=== PATIENT | male | born 1985 | race Caucasian/White ===

== ENCOUNTER 2017-03-31 17:32 | Inpatient (IN) | payer OTHER ==
[2017-03-31 18:03] VITALS: BMI 31.7
--- NOTE | 2017-03-31 19:45 | HP ---
COWS - Scale Resting Pulse: 0= ID 80 or Below Sweatin= Chills/Flushing Restless Observation: 3= Extraneous Movement Pupil Size: 0= Normal to Room Light Bone or Joint Aches: 2= Severe Diffuse Aches Runny Nose/ Eye Tearin= Nasal Congestion GI Upset > 30mins: 3= Vomiting/Diarrhea Tremor Observation: 2= Slight Tremor Visible Yawning Observation: 0= None Anxiety or Irritability: 2=Irritable/Anxious Goose Flesh Skin: 0=Smooth Skin COWS Score: 14 CIWA Score - CIWA Score Nausea/Vomitin Muscle Tremors: 2 Anxiety: 3 Agitation: 4-Moderately Restless Paroxysmal Sweats: 1-Minimal Palms Moist Orientation: 1-Uncertain about Date Tacttile Disturbances: 0-None Auditory Disturbances: 0-None Visual Disturbances: 0-None Headache: 1-Very Mild CIWA-Ar Total Score: 14 Admission ROS [facility] - HPI Chief Complaint: WITHDRAWAL SX Allergies/Adverse Reactions: Allergies Allergy/AdvReac Type Severity Reaction Status Date / Time No Known Allergies Allergy Verified 03/06/15 16:50 History of Present Illness: 32 YEARS OLD MALE WITH LONG HISTORY OF OPIATE ALCOHOL NICOTINE DEPENDENCE HAS HYPERTENSION GERD SEIZURE AND DEPRESSION HAS CHRONIC PANCREATITIS TREATED AT [facility] FROM 03/30-03/31 DISCHARGE TODAY TO [facility] FOR ALCOHOL AND OPIOID DETOX Exam Limitations: No Limitations - Ebola screening Have you traveled outside of the country in the last 21 days: No Have you had contact with anyone from an Ebola affected area: No Have you been sick,other than usual withdrawal symptoms: No Do you have a fever: No - Review of Systems Constitutional: Changes in sleep, Weight Stable EENT: reports: Blurred Vision (EYE GLASSES) Respiratory: reports: SOB with Exertion Cardiac: reports: No Symptoms Reported GI: reports: Diarrhea, Nausea, Poor Fluid Intake, Vomiting, Indigestion, Abdominal cramping : reports: No Symptoms Reported Musculoskeletal: reports: Back Pain, Joint Pain, Muscle Pain, Neck Pain Integumentary: reports: No Symptoms Reported Neuro: reports: Seizure (2009), Tremors Endocrine: reports: No Symptoms Reported Hematology: reports: No Symptoms Reported Psychiatric: reports: Judgement Intact, Depressed Other Systems: Reviewed and Negative Patient History - Patient Medical History Hx Anemia: No Hx Asthma: Yes Hx Chronic Obstructive Pulmonary Disease (COPD): No Hx Cancer: No Hx Cardiac Disorders: No Hx Congestive Heart Failure: No Hx Hypertension: Yes Hx Hypercholesterolemia: Yes (hx in the past , taking medciation ) Hx Pacemaker: No HX Cerebrovascular Accident: No Hx Seizures: Yes (hx on keppra) Hx Dementia: No Hx Diabetes: No Hx Gastrointestinal Disorders: Yes Hx Liver Disease: No Hx Genitourinary Disorders: No Hx Sexually Transmitted Disorders: Yes Hx Renal Disease (ESRD): No Hx Thyroid Disease: No Hx Human Immunodeficiency Virus (HIV): No Hx Hepatitis C: No Hx Depression: Yes Hx Suicide Attempt: No Hx Bipolar Disorder: No Hx Schizophrenia: No - Patient Surgical History Past Surgical History: No Hx Neurologic Surgery: No Hx Cataract Extraction: No Hx Cardiac Surgery: No Hx Lung Surgery: No Hx Breast Surgery: No Hx Breast Biopsy: No Hx Abdominal Surgery: No Hx Appendectomy: No Hx Cholecystectomy: No Hx Genitourinary Surgery: No Hx Orthopedic Surgery: No Other Surgical History: abcess removals in the abck - PPD History Previous Implant?: Yes Documented Results: Negative w/o proof Implanted On Prior R Admission?: No PPD to be Administered?: Yes - Smoking Cessation Smoking history: Current every day smoker Have you smoked in the past 12 months: Yes Aproximately how many cigarettes per day: 5 Cigars Per Day: 0 Hx Chewing Tobacco Use: No Initiated information on smoking cessation: Yes 'Breaking Loose' booklet given: 03/31/17 - Substance & Tx. History Hx Alcohol Use: Yes Hx Substance Use: Yes Substance Use Type: Alcohol, Marijuana, Opiates, Tranquilizers Hx Substance Use Treatment: Yes (12/2016 [facility]) - Substances Abused Alcohol Route: Oral Frequency: Daily Amount used: 3 L VODKA Age of first use: 14 Date of Last Use: 03/30/17 Oxycontin Route: Oral Frequency: 3-6 times per week Amount used: 40 MG Age of first use: 29 Date of Last Use: 03/31/17 Family Disease History - Family Disease History Family Disease History: Diabetes: Father (heroin dependence ), Mother, Brother, Heart Disease: Brother, CA: Grandparent, Respiratory: Grandparent, Father, Other : Father, Sister (NO SISTER) Admission Physical Exam [facility] - Vital Signs Vital Signs: Vital Signs - 24 hr 12/28/17 18:01 Temperature 95.7 F L Pulse Rate 75 Respiratory 18 Rate Blood Pressure 122/89 - Physical General Appearance: Yes: Appropriately Dressed, Mild Distress, Obese, Tremorous , Irritable, Sweating, Anxious HEENTM: Yes: Hearing grossly Normal, Normal ENT Inspection, Normocephalic, Normal Voice Respiratory: Yes: Chest Non-Tender, Lungs Clear, Normal Breath Sounds, No Respiratory Distress, No Accessory Muscle Use Neck: Yes: Supple, Trachea in good position Breast: Yes: Breasts Symetrical Cardiology: Yes: Regular Rhythm, Regular Rate, S1, S2 Abdominal: Yes: Non Tender, Soft, Increased Bowel Sounds Genitourinary: Yes: Within Normal Limits Back: Yes: Normal Inspection Musculoskeletal: Yes: full range of Motion, Gait Steady, Back pain, Muscle Pain Extremities: Yes: Normal Range of Motion, Non-Tender, Tremors Neurological: Yes: Alert, Motor Strength 5/5, Normal Response, Depressed Affect Integumentary: Yes: Warm Lymphatic: Yes: Within Normal Limits - Diagnostic (1) Opioid dependence with withdrawal Current Visit: Yes Status: Acute (2) Nicotine dependence Current Visit: Yes Status: Acute Qualifiers: Nicotine product type: cigarettes Substance use status: in withdrawal Qualified Code(s): F17.213 - Nicotine dependence, cigarettes, with withdrawal (3) Chronic pancreatitis Current Visit: Yes Status: Chronic Qualifiers: Pancreatitis type: alcohol induced Qualified Code(s): K86.0 - Alcohol- induced chronic pancreatitis (4) Swelling of right ankle joint Current Visit: Yes Status: Chronic Comment: FEW MONTHS (5) Alcohol dependence with uncomplicated withdrawal Current Visit: Yes Status: Acute (6) GERD (gastroesophageal reflux disease) Current Visit: Yes Status: Chronic Qualifiers: Esophagitis presence: without esophagitis Qualified Code(s): K21.9 - Gastro -esophageal reflux disease without esophagitis (7) Hypertension Current Visit: Yes Status: Chronic Qualifiers: Hypertension type: essential hypertension Qualified Code(s): I10 - Essential (primary) hypertension (8) Asthma Current Visit: Yes Status: Chronic Qualifiers: Asthma severity: mild Asthma persistence: intermittent Asthma complication type: with status asthmaticus Qualified Code(s): J45.22 - Mild intermittent asthma with status asthmaticus (9) Seizure disorder Current Visit: Yes Status: Chronic Comment: SINCE 2009 LAST EPISODE 2014 KE (10) Depression (emotion) Current Visit: Yes Status: Suspected Qualifiers: Depression Type: dysthymia Qualified Code(s): F34.1 - Dysthymic disorder Cleared for Admission [facility] - Detox or Rehab [facility] Level of Care: Medically Managed Detox Regimen/Protocol: Methadone/Librium [facility] Breath Alcohol Content Breath Alcohol Content: 0 Urine Drug Screen - Results Drug Screen Negative: No Urine Drug Screen Results: THC-Marijuana, OPI-Opiates, PCP-Phencyclidine, BZO- Benzodiazepines
[2017-03-31] MEDS ORDERED: P-EPHED 60MG/TRIPROLIDI 2.5MG TABLET PO PRN (20:03)
[2017-03-31] MEDS ORDERED: MENTHOL/PHENOL 1 EACH UD MM PRN (20:03)
[2017-03-31] MEDS ORDERED: MAGNESIUM CITRATE 300 ML BOTTLE PO PRN (20:03)
[2017-03-31] MEDS ORDERED: METHADONE HCL 10 MG TABLET (FOR DETOX USE ONLY) PO ONE ×2 (20:03→23:00)
[2017-03-31] MEDS ORDERED: ACETAMINOPHEN 325 MG TABLET (FP) PO PRN (20:03)
[2017-03-31] MEDS ORDERED: guaiFENesin/D-METHORPHAN HB 10 ML UNIT-DOSE CUPS PO PRN (20:03)
[2017-03-31] MEDS ORDERED: MAGNESIUM HYDROX 2400MG/30ML ORAL SUSPENSION 30 ML CUP PO PRN (20:03)
[2017-03-31] MEDS ORDERED: NICOTINE POLACRILEX 2 MG GUM BC PRN (20:03)
[2017-03-31] MEDS: levETIRAcetam 500 MG TABLET (FP) PO SCH (21:53)
[2017-03-31] MEDS: THIAMINE HCL 100 MG TABLET (FP) PO SCH (21:53)
[2017-03-31] MEDS: chlordiazePOXIDE HCL 25 MG CAPSULE PO SCH (22:00)
[2017-03-31 23:33] LABS: URINE APPEARANCE CLEAR; URINE BILIRUBIN NEGATIVE (NEGATIVE); URINE BLOOD NEGATIVE (NEGATIVE); URINE COLOR LTYELLOW; URINE GLUCOSE (UA) NEGATIVE (NEGATIVE); URINE KETONE NEGATIVE (NEGATIVE); URINE LEUK ESTERASE NEGATIVE (NEGATIVE); URINE NITRITE NEGATIVE (NEGATIVE); URINE PROTEIN NEGATIVE (NEGATIVE); URINE UROBILINOGEN NEGATIVE mg/dL (0.2-1.0)
[2017-04-01] MEDS: chlordiazePOXIDE HCL 25 MG CAPSULE PO PRN (01:26)
[2017-04-01] MEDS: chlordiazePOXIDE HCL 25 MG CAPSULE PO SCH ×4 (05:00→22:03)
[2017-04-01 09:45] LABS: HEMATOCRIT 33.2 % (35.4-49); HEMOGLOBIN 10.8 GM/dL (11.7-16.9); MCH 31.4 pg (25.7-33.7); MCHC 32.7 g/dl (32.0-35.9); MEAN CELL VOLUME 96.2 fl (80-96); MEAN PLT VOLUME 8.6 fl (7.5-11.1); PLATELET COUNT 216 K/MM3 (134-434); RBC 3.45 M/mm3 (4.00-5.60); RDW 15.2 % (11.9-15.9); WHITE BLOOD COUNT 4.8 K/mm3 (4.0-10.0)
--- NOTE | 2017-04-01 09:52 | EKG ---
Test Reason : Blood Pressure : / mmHG Vent. Rate : 062 BPM Atrial Rate : 062 BPM P-R Int : 154 ms QRS Dur : 092 ms QT Int : 466 ms P-R-T Axes : 039 030 030 degrees QTc Int : 472 ms NORMAL SINUS RHYTHM NORMAL ECG NO PREVIOUS ECGS AVAILABLE Confirmed by DAREK JARAMILLO MD ([id number]) on 04/01/2017 9:51:48 AM Referred By: Confirmed By:DAREK JARAMILLO MD
[2017-04-01 09:58] LABS: ALBUMIN 3.2 g/dl (3.4-5.0); ANION GAP 7 (8-16); BLOOD UREA NITROGEN 8 mg/dL (7-18); CALCIUM 8.4 mg/dL (8.5-10.1); CHLORIDE 105 mmol/L (98-107); CO2 27 mmol/L (21-32); GLUCOSE,RANDOM 112 mg/dL (74-106); POTASSIUM 3.5 mmol/L (3.5-5.1); SODIUM 139 mmol/L (136-145)
[2017-04-01] MEDS ORDERED: METHADONE HCL 10 MG TABLET (FOR DETOX USE ONLY) PO SCH (10:00)
[2017-04-01 10:03] LABS: ALK PHOS 54 U/L (45-117); BILIRUBIN,TOTAL 0.6 mg/dL (0.2-1.0); CREATININE 1.1 mg/dL (0.7-1.3); SGOT/AST 20 U/L (15-37); SGPT/ALT 26 U/L (12-78); TOT PROT 6.5 g/dl (6.4-8.2)
[2017-04-01] MEDS: levETIRAcetam 500 MG TABLET (FP) PO SCH ×2 (10:05→22:03)
[2017-04-01] MEDS: PRENATAL VITAMINS W/ FOLIC ACID TABLET (FP) PO SCH (10:05)
[2017-04-01] MEDS: LISINOPRIL 20 MG TABLET (FP) PO SCH (10:05)
[2017-04-01] MEDS: PANTOPRAZOLE 40 MG TABLET (FP) PO SCH (10:06)
[2017-04-01] MEDS: NICOTINE 14 MG/24 HOURS TOPICAL PATCH TD SCH (10:06)
--- NOTE | 2017-04-01 10:53 | PN ---
[facility] CIWA - CIWA Score Nausea/Vomitin-No Nausea/No Vomiting Muscle Tremors: 4-Moderate,w/Arms Extend Anxiety: 4-Mod. Anxious/Guarded Agitation: 4-Moderately Restless Paroxysmal Sweats: 1-Minimal Palms Moist Orientation: 0-Oriented Tacttile Disturbances: 3-Moderate Itch/Numb/Burn Auditory Disturbances: 0-None Visual Disturbances: 0-None Headache: 0-None Present CIWA-Ar Total Score: 16 S COWS - Scale Resting Pulse: 0= [place] 80 or Below Sweatin= Chills/Flushing Restless Observation: 3= Extraneous Movement Pupil Size: 0= Normal to Room Light Bone or Joint Aches: 4=Acute Joint/Muscle Pain Runny Nose/ Eye Tearin= Nasal Congestion GI Upset > 30mins: 1= Stomach Cramp Tremor Observation of Outstretched Hands: 1= Tremor [place], Not Seen Yawning Observation: 1= 1-2x During Session Anxiety or Irritability: 2=Irritable/Anxious Goose Flesh Skin: 0=Smooth Skin COWS Score: 14 [facility] Progress Note (SOAP) Subjective: ANXIETY,IRRITABILITY,SWEATS,TREMORS,INTERMITTENT SLEEP. Objective: 04/01/17 10:52 Vital Signs Temperature 96.3 F L 04/01/17 09:11 Pulse Rate 68 04/01/17 09:11 Respiratory Rate 18 04/01/17 09:11 Blood Pressure 113/81 04/01/17 09:11 O2 Sat by Pulse Oximetry (%) Laboratory Last Values WBC 4.8 K/mm3 (4.0-10.0) 04/01/17 07:30 RBC 3.45 M/mm3 (4.00-5.60) L 04/01/17 07:30 Hgb 10.8 GM/dL (11.7-16.9) L 04/01/17 07:30 Hct 33.2 % (35.4-49) L 04/01/17 07:30 MCV 96.2 fl (80-96) H 04/01/17 07:30 MCH 31.4 pg (25.7-33.7) 04/01/17 07:30 MCHC 32.7 g/dl (32.0-35.9) 04/01/17 07:30 RDW 15.2 % (11.9-15.9) 04/01/17 07:30 Plt Count 216 K/MM3 (134-434) 04/01/17 07:30 MPV 8.6 fl (7.5-11.1) 04/01/17 07:30 Sodium 139 mmol/L (136-145) 04/01/17 07:30 Potassium 3.5 mmol/L (3.5-5.1) 04/01/17 07:30 Chloride 105 mmol/L (98-107) 04/01/17 07:30 Carbon Dioxide 27 mmol/L (21-32) 04/01/17 07:30 Anion Gap 7 (8-16) L 04/01/17 07:30 BUN 8 mg/dL (7-18) 04/01/17 07:30 Creatinine 1.1 mg/dL (0.7-1.3) 04/01/17 07:30 Creat Clearance w eGFR > 60 (>60) 04/01/17 07:30 Random Glucose 112 mg/dL (74-106) H 04/01/17 07:30 Calcium 8.4 mg/dL (8.5-10.1) L 04/01/17 07:30 Total Bilirubin 0.6 mg/dL (0.2-1.0) 04/01/17 07:30 AST 20 U/L (15-37) 04/01/17 07:30 ALT 26 U/L (12-78) 04/01/17 07:30 Alkaline Phosphatase 54 U/L (45-117) 04/01/17 07:30 Total Protein 6.5 g/dl (6.4-8.2) 04/01/17 07:30 Albumin 3.2 g/dl (3.4-5.0) L 04/01/17 07:30 Urine Color Ltyellow 03/31/17 Unknown Urine Appearance Clear 03/31/17 Unknown Urine pH 6.0 (5.0-8.0) 03/31/17 Unknown Ur Specific [place] 1.012 (1.001-1.035) 03/31/17 Unknown Urine Protein Negative (NEGATIVE) 03/31/17 Unknown Urine Glucose (UA) Negative (NEGATIVE) 03/31/17 Unknown Urine Ketones Negative (NEGATIVE) 03/31/17 Unknown Urine Blood Negative (NEGATIVE) 03/31/17 Unknown Urine Nitrite Negative (NEGATIVE) 03/31/17 Unknown Urine Bilirubin Negative (NEGATIVE) 03/31/17 Unknown Urine Urobilinogen Negative mg/dL (0.2-1.0) 03/31/17 Unknown Assessment: 04/01/17 10:53 WITHDRAWAL SX Plan: CONTINUE DETOX
[2017-04-01] MEDS ORDERED: FLU VACCINE QUAD 60 MCG/0.5 ML (MDV 17-18) IM ONE (12:00)
[2017-04-01 12:39] LABS: SICKLE CELL SCREEN NEGATIVE (NEGATIVE)
[2017-04-01] MEDS ORDERED: chlordiazePOXIDE HCL 25 MG CAPSULE PO ONE (14:00)
--- NOTE | 2017-04-01 15:52 | CONSULT ---
[facility] Psychiatric Consult - Data Date of interview: 04/01/17 Admission source: [facility] Identifying data: First admission to [facility] for this 32 y/o [place] male seeking detox treatment on for alcohol,cannabis,opiate and phencyclidine dependence.Patient is ,a father of three,homeless, unemployed and supported on Public Assistance. Substance Abuse History: Confirmed by patient in this interview.See current [facility] report for details : Smoking history: Current every day smoker. Have you smoked in the past 12 months: Yes. Aproximately how many cigarettes per day: 5. Cigars Per Day: 0. Hx Chewing Tobacco Use: No. Initiated information on smoking cessation: Yes. 'Breaking Loose' booklet given: 03/31/17. - Substance & Tx. History. Hx Alcohol Use: Yes. Hx Substance Use: Yes. Substance Use Type : Alcohol, Marijuana, Opiates, Tranquilizers. Hx Substance Use Treatment: Yes ( 12/2016 [facility]). - Substances Abused. Alcohol. Route: Oral. Frequency: Daily. Amount used: 3 L VODKA. Age of first use: 14. Date of Last Use: 03/30/17. Oxycontin. Route: Oral. Frequency: 3-6 times per week. Amount used: 40 MG. Age of first use: 29. Date of Last Use: 03/31/17 Medical History: Hypertension,seizure disorder (on levetiracetam),dyslipidemia, chronic pancreatitis and bronchial asthma. Psychiatric History: Patient denies history of psychiatric hospitalizations.Diagnosed with MDD.Used to be prescribed sertraline.Currently on clonazepam and seroquel 300 mg/hs.Mr Flaherty declares that he " graduated " from the [facility] (used be maintained on seroquel 300 mg/hs).Dropped out of psychiatric OPD care after completing [facility] program (off psychotropic medications for more than two weeks as per self-report ).Patient denies history of suicide attempts. Physical/Sexual Abuse/Trauma History: Patient denies history of abuse.Traumatized by years of " negative choices " : substance abuse, incarcerations,estrangement from relatives,homelessness,chronic unemployment, unsavory associations and non-adherence to psychiatric care. Additional Comment: Urine Drug Screen Results: THC-Marijuana, OPI-Opiates, PCP- Phencyclidine, BZO-Benzodiazepines.Noted. Mental Status Exam - Mental Status Exam Alert and Oriented to: Time, Place, Person Cognitive Function: Good Patient Appearance: Unkempt, Disheveled, Bizarre (as evidenced by peculiar tattoos -names of his children painted over his forehead,cross between eyebrows, rosary from the corner of left eye - and tattoos all over arms,forearms,chest) Mood: Sad, Withdrawn, Anxious Affect: Mood Congruent, Constricted Patient Behavior: Passive (overweight), Fatigued, Cooperative Speech Pattern: Clear, Appropriate Voice Loudness: Normal Thought Process: Goal Oriented Thought Disorder: Not Present Hallucinations: Denies Suicidal Ideation: Denies Homicidal Ideation: Denies Insight/Judgement: Poor Sleep: Poorly, Difficulty falling asleep Appetite: Good Muscle strength/Tone: Normal Gait/Station: Normal Psychiatric Findings - Problem List ([place] 1, 2,3) (1) Alcohol dependence with uncomplicated withdrawal Current Visit: Yes Status: Acute (2) Opioid dependence with withdrawal Current Visit: Yes Status: Acute (3) Marijuana dependence Current Visit: Yes Status: Acute (4) PCP dependence Current Visit: Yes Status: Acute (5) Nicotine dependence Current Visit: Yes Status: Acute Qualifiers: Nicotine product type: cigarettes Substance use status: in withdrawal Qualified Code(s): F17.213 - Nicotine dependence, cigarettes, with withdrawal (6) Substance induced mood disorder Current Visit: Yes Status: Acute (7) Insomnia Current Visit: Yes Status: Acute - Initial Treatment Plan Initial Treatment Plan: Psychoeducation and support provided in this session.Sleep hygiene discussed.Detoxification in progress.Medication : seroquel 150 mg po hs (pharmacy claims of 02/28/17 at [facility] # [id number] are consistent with refill for seroquel 300 mg/hs # 30 tablets).Ordered.Side effects/benefits are discussed with patient.Dose reduced as caution for oversedation.Titration to follow if good tolerability.Patient gave consent (verbal) for this careplan.Observation.
--- NOTE | 2017-04-01 16:12 | PN ---
[facility] Progress Note Note: c/o muscle pain/cramps. flexeril 10 mg po tid as directed.
[2017-04-01] MEDS: CYCLOBENZAPRINE HCL 10 MG TABLET (FP) PO PRN (17:41)
[2017-04-01] MEDS: THIAMINE HCL 100 MG TABLET (FP) PO SCH (22:03)
[2017-04-01] MEDS: ZOLPIDEM TARTRATE 10 MG TABLET (PARK CARE ONLY) PO PRN (22:04)
[2017-04-01] MEDS: QUEtiapine FUMARATE 50 MG TABLET PO SCH (22:04)
[2017-04-01] MEDS: MAG HYDROX/AL HYDROX/SIMETH 30 ML UNIT-DOSE CUP PO PRN (22:06)
[2017-04-02] MEDS: chlordiazePOXIDE HCL 25 MG CAPSULE PO SCH ×3 (05:32→16:56)
[2017-04-02] MEDS: NICOTINE 14 MG/24 HOURS TOPICAL PATCH TD SCH (09:58)
[2017-04-02] MEDS: PRENATAL VITAMINS W/ FOLIC ACID TABLET (FP) PO SCH (09:59)
[2017-04-02] MEDS: METHADONE HCL 5 MG TABLET (FOR DETOX USE ONLY) PO SCH (10:00)
[2017-04-02] MEDS: PANTOPRAZOLE 40 MG TABLET (FP) PO SCH (10:00)
[2017-04-02] MEDS: levETIRAcetam 500 MG TABLET (FP) PO SCH ×2 (10:00→22:02)
[2017-04-02] MEDS: LISINOPRIL 20 MG TABLET (FP) PO SCH (10:00)
[2017-04-02] MEDS ORDERED: ONDANSETRON *ODT* 4 MG TABLET SL PRN (10:55)
[2017-04-02] MEDS: LOPERAMIDE HCL 2 MG CAPSULE PO PRN ×2 (12:05→18:02)
[2017-04-02] MEDS: MAG HYDROX/AL HYDROX/SIMETH 30 ML UNIT-DOSE CUP PO PRN (14:34)
--- NOTE | 2017-04-02 15:33 | PN ---
S CIWA - CIWA Score Nausea/Vomitin Muscle Tremors: None Anxiety: 4-Mod. Anxious/Guarded Agitation: 3 Paroxysmal Sweats: 3 Orientation: 0-Oriented Tacttile Disturbances: 1-Very Mild Itch/Numbness Auditory Disturbances: 0-None Visual Disturbances: 2-Mild Sensitivity Headache: 0-None Present CIWA-Ar Total Score: 18 [facility] COWS - Scale Resting Pulse: 1= [place] 81-100 Sweatin= Chills/Flushing Restless Observation: 1= Difficult to Sit Still Pupil Size: 0= Normal to Room Light Bone or Joint Aches: 0= None Runny Nose/ Eye Tearin= None GI Upset > 30mins: 0= None Tremor Observation of Outstretched Hands: 2= Slight Tremor Visible Yawning Observation: 1= 1-2x During Session Anxiety or Irritability: 2=Irritable/Anxious Goose Flesh Skin: 3=Piloerection COWS Score: 11 S Progress Note (SOAP) Subjective: Sweating, Fatigue, Vomiting, Stomach Cramping, Diarrhea. Objective: PT. A & O X 3, OBSERVED AMBULATING ON UNIT. NO ACUTE DISTRESS. 04/02/17 15:42 Vital Signs Temperature 95.9 F L 04/02/17 13:28 Pulse Rate 86 04/02/17 13:28 Respiratory Rate 17 04/02/17 13:28 Blood Pressure 117/84 04/02/17 13:28 O2 Sat by Pulse Oximetry (%) Laboratory Tests 03/31/17 04/01/17 04/01/17 Unknown 07:30 07:30 WBC 4.8 RBC 3.45 L Hgb 10.8 L Hct 33.2 L MCV 96.2 H MCH 31.4 MCHC 32.7 RDW 15.2 Plt Count 216 MPV 8.6 Sickle Cell Screen Negative Sodium 139 Potassium 3.5 Chloride 105 Carbon Dioxide 27 Anion Gap 7 L BUN 8 Creatinine 1.1 Creat Clearance w eGFR > 60 Random Glucose 112 H Calcium 8.4 L Total Bilirubin 0.6 AST 20 ALT 26 Alkaline Phosphatase 54 Total Protein 6.5 Albumin 3.2 L Urine Color Ltyellow Urine Appearance Clear Urine pH 6.0 Ur Specific [place] 1.012 Urine Protein Negative Urine Glucose (UA) Negative Urine Ketones Negative Urine Blood Negative Urine Nitrite Negative Urine Bilirubin Negative Urine Urobilinogen Negative Ur Leukocyte Esterase Negative RPR Titer 12/29/17 07:30 WBC RBC Hgb Hct MCV MCH MCHC RDW Plt Count MPV Sickle Cell Screen Sodium Potassium Chloride Carbon Dioxide Anion Gap BUN Creatinine Creat Clearance w eGFR Random Glucose Calcium Total Bilirubin AST ALT Alkaline Phosphatase Total Protein Albumin Urine Color Urine Appearance Urine pH Ur Specific [place] Urine Protein Urine Glucose (UA) Urine Ketones Urine Blood Urine Nitrite Urine Bilirubin Urine Urobilinogen Ur Leukocyte Esterase RPR Titer Nonreactive LABS NOTED. Assessment: 04/02/17 15:42 WITHDRAWAL SYMPTOMS. Plan: CONTINUE DETOX.
[2017-04-02] MEDS: cloNIDine HCL 0.1 MG TABLET PO PRN (16:56)
[2017-04-02] MEDS: CYCLOBENZAPRINE HCL 10 MG TABLET (FP) PO PRN (16:56)
[2017-04-02] MEDS: QUEtiapine FUMARATE 50 MG TABLET PO SCH (22:02)
[2017-04-02] MEDS: chlordiazePOXIDE 5 MG CAPSULE PO SCH (22:02)
[2017-04-02] MEDS: THIAMINE HCL 100 MG TABLET (FP) PO SCH (22:02)
[2017-04-02] MEDS: ZOLPIDEM TARTRATE 10 MG TABLET (PARK CARE ONLY) PO PRN (22:04)
[2017-04-03] MEDS: chlordiazePOXIDE 5 MG CAPSULE PO SCH ×4 (06:09→17:23)
[2017-04-03] MEDS: LISINOPRIL 20 MG TABLET (FP) PO SCH (10:04)
[2017-04-03] MEDS: levETIRAcetam 500 MG TABLET (FP) PO SCH ×2 (10:05→22:07)
[2017-04-03] MEDS: PRENATAL VITAMINS W/ FOLIC ACID TABLET (FP) PO SCH (10:05)
[2017-04-03] MEDS: METHADONE HCL 5 MG TABLET (FOR DETOX USE ONLY) PO SCH (10:05)
[2017-04-03] MEDS: NICOTINE 14 MG/24 HOURS TOPICAL PATCH TD SCH (10:05)
[2017-04-03] MEDS: PANTOPRAZOLE 40 MG TABLET (FP) PO SCH (10:07)
--- NOTE | 2017-04-03 11:04 | PN ---
S Progress Note (SOAP) Subjective: Stomach ache, diarrhea, nausea, chills, sweating, tremor Objective: 04/03/17 11:02 Last Vital Signs Temp Pulse Resp BP Pulse Ox 96.8 F L 77 18 100/54 04/03/17 06:10 04/03/17 06:10 04/03/17 06:10 04/03/17 06:10 Laboratory Tests 03/31/17 04/01/17 04/01/17 Unknown 07:30 07:30 WBC 4.8 RBC 3.45 L Hgb 10.8 L Hct 33.2 L MCV 96.2 H MCH 31.4 MCHC 32.7 RDW 15.2 Plt Count 216 MPV 8.6 Sickle Cell Screen Negative Sodium 139 Potassium 3.5 Chloride 105 Carbon Dioxide 27 Anion Gap 7 L BUN 8 Creatinine 1.1 Creat Clearance w eGFR > 60 Random Glucose 112 H Calcium 8.4 L Total Bilirubin 0.6 AST 20 ALT 26 Alkaline Phosphatase 54 Total Protein 6.5 Albumin 3.2 L Urine Color Ltyellow Urine Appearance Clear Urine pH 6.0 Ur Specific [place] 1.012 Urine Protein Negative Urine Glucose (UA) Negative Urine Ketones Negative Urine Blood Negative Urine Nitrite Negative Urine Bilirubin Negative Urine Urobilinogen Negative Ur Leukocyte Esterase Negative RPR Titer 04/01/17 07:30 WBC RBC Hgb Hct MCV MCH MCHC RDW Plt Count MPV Sickle Cell Screen Sodium Potassium Chloride Carbon Dioxide Anion Gap BUN Creatinine Creat Clearance w eGFR Random Glucose Calcium Total Bilirubin AST ALT Alkaline Phosphatase Total Protein Albumin Urine Color Urine Appearance Urine pH Ur Specific [place] Urine Protein Urine Glucose (UA) Urine Ketones Urine Blood Urine Nitrite Urine Bilirubin Urine Urobilinogen Ur Leukocyte Esterase RPR Titer Nonreactive Labs noted Assessment: 04/03/17 11:03 Withdrawal symptoms Plan: Continue detox Encouraged to drink lots of water
[2017-04-03] MEDS: chlordiazePOXIDE HCL 25 MG CAPSULE PO PRN (12:26)
[2017-04-03] MEDS: CYCLOBENZAPRINE HCL 10 MG TABLET (FP) PO PRN (17:24)
[2017-04-03] MEDS: NAPROXEN 500 MG TABLET (FP) PO PRN (17:24)
[2017-04-03] MEDS: cloNIDine HCL 0.1 MG TABLET PO PRN (17:24)
[2017-04-03] MEDS ORDERED: COLLOIDAL OATMEAL 1 BAR EACH TP PRN (18:12)
[2017-04-03] MEDS: chlordiazePOXIDE HCL 10 MG CAPSULE PO SCH (22:06)
[2017-04-03] MEDS: QUEtiapine FUMARATE 50 MG TABLET PO SCH (22:07)
[2017-04-03] MEDS: THIAMINE HCL 100 MG TABLET (FP) PO SCH (22:07)
[2017-04-03] MEDS: ZOLPIDEM TARTRATE 10 MG TABLET (PARK CARE ONLY) PO PRN (22:08)
[2017-04-04] MEDS: chlordiazePOXIDE HCL 10 MG CAPSULE PO SCH ×3 (06:05→16:37)
[2017-04-04] MEDS ORDERED: METHADONE HCL 10 MG TABLET (FOR DETOX USE ONLY) PO SCH (10:00)
[2017-04-04] MEDS: levETIRAcetam 500 MG TABLET (FP) PO SCH ×2 (10:28→22:02)
[2017-04-04] MEDS: LISINOPRIL 20 MG TABLET (FP) PO SCH (10:28)
[2017-04-04] MEDS: PANTOPRAZOLE 40 MG TABLET (FP) PO SCH (10:28)
[2017-04-04] MEDS: NICOTINE 14 MG/24 HOURS TOPICAL PATCH TD SCH (10:29)
[2017-04-04] MEDS: PRENATAL VITAMINS W/ FOLIC ACID TABLET (FP) PO SCH (10:29)
--- NOTE | 2017-04-04 11:55 | PN ---
[facility] Progress Note (SOAP) Subjective: PT IS AGITATED AND IRRITABLE. REPORTS DIARRHEA AND STOMACH CRAMPS. Objective: 04/04/17 11:55 Vital Signs Temperature 95.7 F L 04/04/17 09:14 Pulse Rate 94 H 04/04/17 09:14 Respiratory Rate 20 04/04/17 09:14 Blood Pressure 106/71 04/04/17 09:14 O2 Sat by Pulse Oximetry (%) Laboratory Last Values WBC 4.8 K/mm3 (4.0-10.0) 04/01/17 07:30 RBC 3.45 M/mm3 (4.00-5.60) L 04/01/17 07:30 Hgb 10.8 GM/dL (11.7-16.9) L 04/01/17 07:30 Hct 33.2 % (35.4-49) L 04/01/17 07:30 MCV 96.2 fl (80-96) H 04/01/17 07:30 MCH 31.4 pg (25.7-33.7) 04/01/17 07:30 MCHC 32.7 g/dl (32.0-35.9) 04/01/17 07:30 RDW 15.2 % (11.9-15.9) 04/01/17 07:30 Plt Count 216 K/MM3 (134-434) 04/01/17 07:30 MPV 8.6 fl (7.5-11.1) 04/01/17 07:30 Sickle Cell Screen Negative (NEGATIVE) 04/01/17 07:30 Sodium 139 mmol/L (136-145) 04/01/17 07:30 Potassium 3.5 mmol/L (3.5-5.1) 04/01/17 07:30 Chloride 105 mmol/L (98-107) 04/01/17 07:30 Carbon Dioxide 27 mmol/L (21-32) 04/01/17 07:30 Anion Gap 7 (8-16) L 04/01/17 07:30 BUN 8 mg/dL (7-18) 04/01/17 07:30 Creatinine 1.1 mg/dL (0.7-1.3) 04/01/17 07:30 Creat Clearance w eGFR > 60 (>60) 04/01/17 07:30 Random Glucose 112 mg/dL (74-106) H 04/01/17 07:30 Calcium 8.4 mg/dL (8.5-10.1) L 04/01/17 07:30 Total Bilirubin 0.6 mg/dL (0.2-1.0) 04/01/17 07:30 AST 20 U/L (15-37) 04/01/17 07:30 ALT 26 U/L (12-78) 04/01/17 07:30 Alkaline Phosphatase 54 U/L (45-117) 04/01/17 07:30 Total Protein 6.5 g/dl (6.4-8.2) 04/01/17 07:30 Albumin 3.2 g/dl (3.4-5.0) L 04/01/17 07:30 Urine Color Ltyellow 03/31/17 Unknown Urine Appearance Clear 03/31/17 Unknown Urine pH 6.0 (5.0-8.0) 03/31/17 Unknown Ur Specific [place] 1.012 (1.001-1.035) 03/31/17 Unknown Urine Protein Negative (NEGATIVE) 03/31/17 Unknown Urine Glucose (UA) Negative (NEGATIVE) 03/31/17 Unknown Urine Ketones Negative (NEGATIVE) 03/31/17 Unknown Urine Blood Negative (NEGATIVE) 03/31/17 Unknown Urine Nitrite Negative (NEGATIVE) 03/31/17 Unknown Urine Bilirubin Negative (NEGATIVE) 03/31/17 Unknown Urine Urobilinogen Negative mg/dL (0.2-1.0) 03/31/17 Unknown Ur Leukocyte Esterase Negative (NEGATIVE) 03/31/17 Unknown RPR Titer Nonreactive (NONREACTIVE) 04/01/17 07:30 Assessment: 04/04/17 11:55 WITHDRAWAL SX Plan: CONTINUE DETOX IMODIUM PRN
[2017-04-04] MEDS: NAPROXEN 500 MG TABLET (FP) PO PRN (16:37)
[2017-04-04] MEDS: CYCLOBENZAPRINE HCL 10 MG TABLET (FP) PO PRN (16:37)
[2017-04-04] MEDS: cloNIDine HCL 0.1 MG TABLET PO PRN (18:56)
[2017-04-04] MEDS: THIAMINE HCL 100 MG TABLET (FP) PO SCH (22:02)
[2017-04-04] MEDS: QUEtiapine FUMARATE 50 MG TABLET PO SCH (22:02)
[2017-04-05] MEDS: CYCLOBENZAPRINE HCL 10 MG TABLET (FP) PO PRN (01:13)
[2017-04-05] MEDS ORDERED: METHADONE HCL 5 MG TABLET (FOR DETOX USE ONLY) PO SCH (06:00)
[2017-04-05] MEDS: levETIRAcetam 500 MG TABLET (FP) PO SCH (09:25)
[2017-04-05] MEDS: PANTOPRAZOLE 40 MG TABLET (FP) PO SCH (09:25)
[2017-04-05] MEDS: PRENATAL VITAMINS W/ FOLIC ACID TABLET (FP) PO SCH (09:25)
[2017-04-05] MEDS: LISINOPRIL 20 MG TABLET (FP) PO SCH (09:26)
[2017-04-05] MEDS: NICOTINE 14 MG/24 HOURS TOPICAL PATCH TD SCH ×2 (09:28→09:58)
[2017-04-05] MEDS: NAPROXEN 500 MG TABLET (FP) PO PRN ×2 (12:24→17:20)
--- NOTE | 2017-04-05 12:28 | DS ---
[facility] Detox Discharge Summary Admission Date: 03/31/17 Discharge Date: 04/05/17 - History Present History: Alcohol Dependence, Cannabis Dependence, Opioid Dependence, Pcp Dependence Additional Comments: PATIENT GOING TO [facility] ([facility]) FOR AFTERCARE. PATIENT IN STABLE MEDICAL CONDITION AT TIME OF DISCHARGE FROM DETOX UNIT. Pertinent Past History: Asthma, GERD, Hypercholesterolemia, HTN, Seizure Disorder, Depression, Swelling of right Ankle Joint, Insomnia, Nicotine Dependence, Chronic Pancreatitis. - Physical Exam Results Vital Signs: Vital Signs Temperature 96.8 F L 04/05/17 09:37 Pulse Rate 107 H 04/05/17 09:37 Respiratory Rate 18 04/05/17 09:37 Blood Pressure 94/68 04/05/17 09:37 O2 Sat by Pulse Oximetry (%) Pertinent Admission Physical Exam Findings: WITHDRAWAL SYMPTOMS. Laboratory Tests 03/31/17 04/01/17 04/01/17 Unknown 07:30 07:30 WBC 4.8 RBC 3.45 L Hgb 10.8 L Hct 33.2 L MCV 96.2 H MCH 31.4 MCHC 32.7 RDW 15.2 Plt Count 216 MPV 8.6 Sickle Cell Screen Negative Sodium 139 Potassium 3.5 Chloride 105 Carbon Dioxide 27 Anion Gap 7 L BUN 8 Creatinine 1.1 Creat Clearance w eGFR > 60 Random Glucose 112 H Calcium 8.4 L Total Bilirubin 0.6 AST 20 ALT 26 Alkaline Phosphatase 54 Total Protein 6.5 Albumin 3.2 L Urine Color Ltyellow Urine Appearance Clear Urine pH 6.0 Ur Specific Simpson 1.012 Urine Protein Negative Urine Glucose (UA) Negative Urine Ketones Negative Urine Blood Negative Urine Nitrite Negative Urine Bilirubin Negative Urine Urobilinogen Negative Ur Leukocyte Esterase Negative RPR Titer 04/01/17 07:30 WBC RBC Hgb Hct MCV MCH MCHC RDW Plt Count MPV Sickle Cell Screen Sodium Potassium Chloride Carbon Dioxide Anion Gap BUN Creatinine Creat Clearance w eGFR Random Glucose Calcium Total Bilirubin AST ALT Alkaline Phosphatase Total Protein Albumin Urine Color Urine Appearance Urine pH Ur Specific Simpson Urine Protein Urine Glucose (UA) Urine Ketones Urine Blood Urine Nitrite Urine Bilirubin Urine Urobilinogen Ur Leukocyte Esterase RPR Titer Nonreactive LABS NOTED. - Treatment Hospital Course: Detox Protocol Followed, Detoxed Safely, Responded well, Discharged Condition Good Patient has Accepted a Rehab Referral to: [facility] ([facility]) . - Medication Discharge Medications: Ambulatory Orders Levetiracetam [Keppra -] 500 mg PO BID 03/06/15 Lisinopril [Prinivil -] 20 mg PO DAILY 03/06/15 Pantoprazole Sodium [Protonix -] 40 mg PO DAILY 03/06/15 Sertraline HCl [Zoloft -] 100 mg PO DAILY 03/06/15 Quetiapine Fumarate [Seroquel] 300 mg PO DAILY 03/31/17 - Diagnosis (1) Alcohol dependence with uncomplicated withdrawal Current Visit: Yes Status: Acute (2) Nicotine dependence Current Visit: Yes Status: Chronic Qualifiers: Nicotine product type: cigarettes Substance use status: in withdrawal Qualified Code(s): F17.213 - Nicotine dependence, cigarettes, with withdrawal (3) Opioid dependence with withdrawal Current Visit: Yes Status: Acute (4) Chronic pancreatitis Current Visit: Yes Status: Chronic Qualifiers: Pancreatitis type: alcohol induced Qualified Code(s): K86.0 - Alcohol- induced chronic pancreatitis (5) GERD (gastroesophageal reflux disease) Current Visit: Yes Status: Chronic Qualifiers: Esophagitis presence: without esophagitis Qualified Code(s): K21.9 - Gastro -esophageal reflux disease without esophagitis (6) Hypertension Current Visit: Yes Status: Chronic Qualifiers: Hypertension type: essential hypertension Qualified Code(s): I10 - Essential (primary) hypertension (7) Seizure disorder Current Visit: Yes Status: Chronic (8) Swelling of right ankle joint Current Visit: Yes Status: Chronic (9) Depression (emotion) Current Visit: Yes Status: Chronic Qualifiers: Depression Type: dysthymia Qualified Code(s): F34.1 - Dysthymic disorder (10) Asthma Current Visit: Yes Status: Chronic Qualifiers: Asthma severity: mild Asthma persistence: intermittent Asthma complication type: with status asthmaticus Qualified Code(s): J45.22 - Mild intermittent asthma with status asthmaticus (11) Insomnia Current Visit: Yes Status: Acute Qualifiers: Insomnia type: unspecified Qualified Code(s): G47.00 - Insomnia, unspecified (12) Substance induced mood disorder Current Visit: Yes Status: Acute (13) PCP dependence Current Visit: Yes Status: Chronic - AMA Did Patient Leave Against Medical Advice: No
[2017-04-05 17:17] VITALS: BP 122/81; PULSE 87; TEMP 97.3
== END 2017-04-05 18:05 | disposition other institution (70) | DRG 773 ==
LOC: YASAS 17:32 → Y3N 21:05
PROVIDERS: ADMIT Internal Medicine; ATTEND Internal Medicine
PROC: HZ2ZZZZ Detoxification Services for Substance Abuse Treatment (ICD-10-PCS; principal; 2017-03-31)
DX: F11.23 Opioid dependence with withdrawal (principal); F10.230 Alcohol dependence with withdrawal, uncomplicated; F12.20 Cannabis dependence, uncomplicated; F16.20 Hallucinogen dependence, uncomplicated; F17.213 Nicotine dependence, cigarettes, with withdrawal; F19.24 Other psychoactive substance dependence with psychoactive substance-induced mood disorder; F34.1 Dysthymic disorder; I10 Essential (primary) hypertension; K86.0 Alcohol-induced chronic pancreatitis; K21.9 Gastro-esophageal reflux disease without esophagitis; G40.909 Epilepsy, unspecified, not intractable, without status epilepticus; J45.22 Mild intermittent asthma with status asthmaticus; G47.00 Insomnia, unspecified; M25.471 Effusion, right ankle; E78.5 Hyperlipidemia, unspecified; E66.9 Obesity, unspecified; Z68.31 Body mass index [BMI] 31.0-31.9, adult
CPT/HCPCS: 36415; 80053; 81003; 85027; 85660; 86593; 93005; 93010

== ENCOUNTER 2017-04-05 18:35 | Inpatient (IN) | payer OTHER ==
[2017-04-05] MEDS ORDERED: NICOTINE POLACRILEX 2 MG GUM BUC PRN (21:13)
[2017-04-05] MEDS ORDERED: P-EPHED 60MG/TRIPROLIDI 2.5MG TABLET PO PRN (21:13)
[2017-04-05] MEDS ORDERED: MAGNESIUM HYDROX 2400MG/30ML ORAL SUSPENSION 30 ML CUP PO PRN (21:13)
[2017-04-05] MEDS ORDERED: guaiFENesin/D-METHORPHAN HB 10 ML UNIT-DOSE CUPS PO PRN (21:13)
[2017-04-05] MEDS ORDERED: LOPERAMIDE HCL 2 MG CAPSULE PO PRN (21:13)
[2017-04-05] MEDS ORDERED: MAG HYDROX/AL HYDROX/SIMETH 30 ML UNIT-DOSE CUP PO PRN (21:13)
[2017-04-05] MEDS ORDERED: MENTHOL/PHENOL 1 EACH UD MM PRN (21:13)
[2017-04-05] MEDS ORDERED: ACETAMINOPHEN 325 MG TABLET (FP) PO PRN (21:13)
[2017-04-05] MEDS ORDERED: MAGNESIUM CITRATE 300 ML BOTTLE PO PRN (21:13)
[2017-04-05] MEDS ORDERED: IBUPROFEN 400 MG TABLET (FP) PO PRN (21:13)
--- NOTE | 2017-04-05 21:13 | HP ---
[facility] Rehab Assess/Revision - Admission History Admitted to Rehab from: [facility] Date of Admission to Rehab: 04/05/17 - Findings Detox History & Physical reviewed: Yes Concur with findings: Yes Comments/Additional Findings: transferred from detox to rehab admission as per protocol Inpatient Rehab Admission - Initial Determination Are CD services needed?: Yes Free of communicable disease: Yes Not in need of hospitalization: Yes - Rehab Admission Criteria Previous failed treatment: Yes Poor recovery environment: Yes Comorbidities: Yes Lacks judgement: No Patient is meeting Inpatient Rehab admission criteria:: Yes
[2017-04-05] MEDS ORDERED: QUEtiapine FUMARATE 50 MG TABLET PO SCH (22:00)
[2017-04-05] MEDS: THIAMINE HCL 100 MG TABLET (FP) PO SCH (22:03)
[2017-04-05] MEDS: RANITIDINE HCL 150 MG TABLET (FP) PO SCH (22:04)
[2017-04-05] MEDS: levETIRAcetam 500 MG TABLET (FP) PO SCH (22:37)
[2017-04-06] MEDS: PRENATAL VITAMINS W/ FOLIC ACID TABLET (FP) PO SCH (09:39)
[2017-04-06] MEDS: levETIRAcetam 500 MG TABLET (FP) PO SCH ×2 (09:39→21:07)
[2017-04-06] MEDS: LISINOPRIL 20 MG TABLET (FP) PO SCH (09:39)
[2017-04-06] MEDS: RANITIDINE HCL 150 MG TABLET (FP) PO SCH ×2 (09:39→21:07)
[2017-04-06] MEDS: NICOTINE 14 MG/24 HOURS TOPICAL PATCH TD PRN (09:50)
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
[2017-04-06] MEDS ORDERED: QUEtiapine FUMARATE 50 MG TABLET PO SCH (11:30)
[2017-04-06] MEDS ORDERED: QUEtiapine FUMARATE 200 MG TABLET PO PRN (11:39)
[2017-04-06] MEDS: QUEtiapine FUMARATE 50 MG TABLET PO PRN (12:19)
[2017-04-06] MEDS: NAPROXEN 500 MG TABLET (FP) PO PRN (12:55)
--- NOTE | 2017-04-06 16:03 | PN ---
[facility] Progress Note (SOAP) Subjective: Patient reports h/o migraine headache and that he cannot take tylenol or motrin as it doesn't work for him. He is requesting naproxen instead. Patient also requesting nicotine patch 21mg despite reporting that he only smokes 10-12 cigarettes per day. Patient made aware that nicotine 21mg is for those who smoke 1ppd or more. He refuses to take the nicotine gum prn stating that it makes him nauseous. Objective: 04/06/17 16:00 Last Vital Signs Temp Pulse Resp BP Pulse Ox 97.1 F L 84 20 111/71 04/06/17 06:37 04/06/17 10:00 04/06/17 06:37 04/06/17 10:00 Assessment: 04/06/17 16:01 Patient seen for c/o migraine headache and nicotine dependence Plan: Migraine headache: d/c motrin, start naproxen 500mg PO q12hr prn, tylenol prn Nicotine dependence: continue nicotine patch 14mg daily, encouraged abstinence
--- NOTE | 2017-04-06 16:53 | EKG ---
Test Reason : Blood Pressure : / mmHG Vent. Rate : 079 BPM Atrial Rate : 079 BPM P-R Int : 166 ms QRS Dur : 100 ms QT Int : 346 ms P-R-T Axes : 040 016 026 degrees QTc Int : 396 ms NORMAL SINUS RHYTHM POSSIBLE LEFT ATRIAL ENLARGEMENT BORDERLINE ECG WHEN COMPARED WITH ECG OF 31-MAR-2017 23:04, QT HAS SHORTENED Confirmed by VAHE OROZCO MD ([id number]) on 04/06/2017 4:53:06 PM Referred By: Confirmed By:VAHE OROZCO MD
[2017-04-06] MEDS: QUEtiapine FUMARATE 300 MG TABLET PO SCH (21:07)
[2017-04-06] MEDS: THIAMINE HCL 100 MG TABLET (FP) PO SCH (21:07)
[2017-04-07] MEDS: levETIRAcetam 500 MG TABLET (FP) PO SCH ×2 (09:49→21:03)
[2017-04-07] MEDS: PRENATAL VITAMINS W/ FOLIC ACID TABLET (FP) PO SCH (09:50)
[2017-04-07] MEDS: LISINOPRIL 20 MG TABLET (FP) PO SCH (09:50)
[2017-04-07] MEDS: QUEtiapine FUMARATE 50 MG TABLET PO PRN (09:50)
[2017-04-07] MEDS: RANITIDINE HCL 150 MG TABLET (FP) PO SCH ×2 (09:50→21:04)
[2017-04-07] MEDS: NAPROXEN 500 MG TABLET (FP) PO PRN (09:50)
[2017-04-07] MEDS: NICOTINE 14 MG/24 HOURS TOPICAL PATCH TD PRN (09:50)
[2017-04-07] MEDS: THIAMINE HCL 100 MG TABLET (FP) PO SCH (21:03)
[2017-04-07] MEDS: QUEtiapine FUMARATE 300 MG TABLET PO SCH (21:04)
[2017-04-08] MEDS: PRENATAL VITAMINS W/ FOLIC ACID TABLET (FP) PO SCH (09:41)
[2017-04-08] MEDS: RANITIDINE HCL 150 MG TABLET (FP) PO SCH ×2 (09:41→21:13)
[2017-04-08] MEDS: LISINOPRIL 20 MG TABLET (FP) PO SCH (09:41)
[2017-04-08] MEDS: levETIRAcetam 500 MG TABLET (FP) PO SCH ×2 (09:41→21:13)
[2017-04-08] MEDS: NICOTINE 14 MG/24 HOURS TOPICAL PATCH TD PRN (09:42)
[2017-04-08] MEDS: QUEtiapine FUMARATE 50 MG TABLET PO PRN (09:43)
[2017-04-08] MEDS: NAPROXEN 500 MG TABLET (FP) PO PRN (09:43)
[2017-04-08] MEDS ORDERED: SUMAtriptan SUCCINATE 25 MG TABLET PO ONE (14:23)
[2017-04-08] MEDS ORDERED: SUMAtriptan SUCCINATE 25 MG TABLET PO PRN (14:29)
[2017-04-08] MEDS: THIAMINE HCL 100 MG TABLET (FP) PO SCH (21:13)
[2017-04-08] MEDS: QUEtiapine FUMARATE 300 MG TABLET PO SCH (21:13)
[2017-04-09 06:46] VITALS: TEMP 97.2
[2017-04-09] MEDS: levETIRAcetam 500 MG TABLET (FP) PO SCH ×2 (09:39→21:14)
[2017-04-09] MEDS: PRENATAL VITAMINS W/ FOLIC ACID TABLET (FP) PO SCH (09:39)
[2017-04-09] MEDS: RANITIDINE HCL 150 MG TABLET (FP) PO SCH ×2 (09:39→21:14)
[2017-04-09] MEDS: LISINOPRIL 20 MG TABLET (FP) PO SCH (09:40)
[2017-04-09] MEDS: QUEtiapine FUMARATE 50 MG TABLET PO PRN (09:41)
[2017-04-09] MEDS: NICOTINE 14 MG/24 HOURS TOPICAL PATCH TD PRN (12:43)
[2017-04-09] MEDS: THIAMINE HCL 100 MG TABLET (FP) PO SCH (21:14)
[2017-04-09] MEDS: QUEtiapine FUMARATE 300 MG TABLET PO SCH (21:15)
[2017-04-10] MEDS: LISINOPRIL 20 MG TABLET (FP) PO SCH (09:30)
[2017-04-10] MEDS: RANITIDINE HCL 150 MG TABLET (FP) PO SCH ×2 (09:30→21:04)
[2017-04-10] MEDS: PRENATAL VITAMINS W/ FOLIC ACID TABLET (FP) PO SCH (09:31)
[2017-04-10] MEDS: levETIRAcetam 500 MG TABLET (FP) PO SCH ×2 (09:31→21:04)
[2017-04-10] MEDS: QUEtiapine FUMARATE 50 MG TABLET PO PRN (09:32)
[2017-04-10] MEDS: NICOTINE 14 MG/24 HOURS TOPICAL PATCH TD PRN (09:39)
[2017-04-10 10:05] VITALS: BP 148/95; PULSE 67
[2017-04-10] MEDS: THIAMINE HCL 100 MG TABLET (FP) PO SCH (21:04)
[2017-04-10] MEDS: QUEtiapine FUMARATE 300 MG TABLET PO SCH (21:05)
[2017-04-11] MEDS: levETIRAcetam 500 MG TABLET (FP) PO SCH (09:27)
[2017-04-11] MEDS: PRENATAL VITAMINS W/ FOLIC ACID TABLET (FP) PO SCH (09:27)
[2017-04-11] MEDS: RANITIDINE HCL 150 MG TABLET (FP) PO SCH (09:28)
[2017-04-11] MEDS: LISINOPRIL 20 MG TABLET (FP) PO SCH (09:28)
[2017-04-11] MEDS: NICOTINE 14 MG/24 HOURS TOPICAL PATCH TD PRN (09:29)
[2017-04-11] MEDS: QUEtiapine FUMARATE 50 MG TABLET PO PRN (09:29)
--- NOTE | 2017-04-11 10:04 | PN ---
Psychiatric Progress Note Vital Signs: Vital Signs Period Temp Pulse Resp BP Sys/Guerrero Pulse Ox Last 24 Hr 67 18-18 148/95 Date of Session: 04/11/17 Chief Complaint:: "leaving AMA" HPI: Patient is a 32 year old male with history of alcohol opioid, PCP, cannabis dependence comorbid substance induced mood disorder. ROS: HTN, seizure disorder medically managed. Current Medications: Active Medications Generic Name Dose Route Start Last Admin Trade Name Freq PRN Reason Stop Dose Admin Acetaminophen 650 mg 04/05/17 21:13 Tylenol - PO Q4H PRN FEVER OR PAIN Al Hydroxide/Mg Hydroxide 30 ml 04/05/17 21:13 Mylanta Oral Suspension - PO Q6H PRN DYSPEPSIA Eucalyptus/Menthol/Phenol/Sorbitol 1 each 04/05/17 21:13 Cepastat Lozenge - MM Q4H PRN SORE THROAT Guaifenesin 10 ml 04/05/17 21:13 Robitussin Dm - PO Q6H PRN COUGH Levetiracetam 500 mg 04/05/17 22:00 04/11/17 09:27 Keppra - PO 500 mg BID PRABHA Administration Lisinopril 20 mg 04/06/17 10:00 04/11/17 09:28 Prinivil PO 20 mg DAILY PRABHA Administration Loperamide HCl 4 mg 04/05/17 21:13 Imodium - PO Q6H PRN DIARRHEA Magnesium Citrate 300 ml 04/05/17 21:13 Citroma - PO Q48H PRN CONSTIPATION Magnesium Hydroxide 30 ml 04/05/17 21:13 Milk Of Magnesia - PO DAILY PRN CONSTIPATION Naproxen 500 mg 04/06/17 12:32 04/08/17 09:43 Naprosyn - PO 500 mg BID PRN Administration PAIN Nicotine 14 mg 04/05/17 21:13 04/11/17 09:29 Nicoderm Patch - TD 14 mg DAILY PRN Administration WITHDRAWAL(CONT SUBST) Nicotine Polacrilex 2 mg 04/05/17 21:13 Nicorette Gum - BUC Q2H PRN NICOTINE REPLACEMENT RX Multivit/Folic Acid/Iron 1 tab 04/06/17 10:00 04/11/17 09:27 Vitamins (Sjr) - PO 1 tab DAILY PRABHA Administration Pseudoephedrine/Triprolidine 1 combo 04/05/17 21:13 Actifed - PO TID PRN NASAL CONGESTION Quetiapine Fumarate 300 mg 04/06/17 22:00 04/10/17 21:05 Seroquel - PO 300 mg HS PRABHA Administration Quetiapine Fumarate 50 mg 04/06/17 12:00 04/11/17 09:29 Seroquel - PO 50 mg Q8H PRN Administration AGITATION Ranitidine HCl 150 mg 04/05/17 22:00 04/11/17 09:28 Zantac - PO 150 mg BID PRABHA Administration Sumatriptan Succinate 25 mg 04/08/17 14:29 Imitrex - PO DAILY PRN HEADACHE Thiamine HCl 100 mg 04/05/17 22:00 04/10/17 21:04 Vitamin B1 - PO 100 mg HS PRABHA Administration Current Side Effect: No Lab tests ordered: No Lab tests reviewed: Yes Provider note:: Patient decided to leave treatment at this point, met with the patient to exlored reasons, patient reported that he has some personal issues he needs to take care of ( ), he was encouraged to stay in treatment and focus on his addiction, but adamant to leave, reports he sees a psychiatrist at [facility], medicatiions (seroquel ) well tolerated , patient is not psychotic, denies suicidal thoughts, scripts provided, he is stable for ama discharge. Total face to face time:: 20 Mental Status Exam - Mental Status Exam Alert and Oriented to: Time, Place, Person Cognitive Function: Good Patient Appearance: Well Groomed Affect: Appropriate, Mood Congruent Patient Behavior: Appropriate, Cooperative Speech Pattern: Clear, Appropriate Voice Loudness: Normal Thought Process: Intact Thought Disorder: Not Present Hallucinations: Denies Suicidal Ideation: Denies Homicidal Ideation: Denies Insight/Judgement: Fair Sleep: Fair Appetite: Fair Muscle strength/Tone: Normal Gait/Station: Normal Psychiatric Treatment Plan - Problem List (1) Alcohol dependence Current Visit: Yes (2) Insomnia Current Visit: Yes Qualifiers: Insomnia type: unspecified Qualified Code(s): G47.00 - Insomnia, unspecified (3) Marijuana dependence Current Visit: Yes (4) Nicotine dependence Current Visit: Yes Qualifiers: Nicotine product type: cigarettes Substance use status: in withdrawal Qualified Code(s): F17.213 - Nicotine dependence, cigarettes, with withdrawal (5) Opioid dependence Current Visit: Yes (6) PCP dependence Current Visit: Yes (7) Substance induced mood disorder Current Visit: Yes (8) Hypertension Current Visit: No Qualifiers: Hypertension type: essential hypertension Qualified Code(s): I10 - Essential (primary) hypertension (9) Seizure disorder Current Visit: No Comment: SINCE 2009 LAST EPISODE 2014 BING
== END 2017-04-11 09:55 | disposition left against medical advice (07) | DRG 770 ==
LOC: YASAS 18:35 → Y5N 18:36
PROVIDERS: ADMIT Psychiatry & Neurology Psychiatry; ATTEND Psychiatry & Neurology Psychiatry
PROC: HZ42ZZZ Group Counseling for Substance Abuse Treatment, Cognitive-Behavioral (ICD-10-PCS; principal; 2017-04-05)
DX: F11.20 Opioid dependence, uncomplicated (principal); F10.20 Alcohol dependence, uncomplicated; F16.20 Hallucinogen dependence, uncomplicated; F17.210 Nicotine dependence, cigarettes, uncomplicated; F19.24 Other psychoactive substance dependence with psychoactive substance-induced mood disorder; G47.00 Insomnia, unspecified; I10 Essential (primary) hypertension; Z86.69 Personal history of other diseases of the nervous system and sense organs; Z59.0 Homelessness
CPT/HCPCS: 93005; 93010

== ENCOUNTER 2017-06-17 11:42 | Inpatient (IN) | payer OTHER ==
[2017-06-17 14:32] VITALS: BMI 30.8
--- NOTE | 2017-06-17 15:47 | HP ---
CIWA Score - CIWA Score Nausea/Vomitin Muscle Tremors: 3 Anxiety: 3 Agitation: 3 Paroxysmal Sweats: 2 Orientation: 0-Oriented Tacttile Disturbances: 2-Mild Itch/Numbness/Burn Auditory Disturbances: 2-Mild Harshness/Frighten Visual Disturbances: 1-Very Mild Sensitivity Headache: 2-Mild CIWA-Ar Total Score: 21 Admission ROS [facility] - HPI Chief Complaint: i need help to stop drinking alcohol,xanax,marijuana,heroin abused Allergies/Adverse Reactions: Allergies Allergy/AdvReac Type Severity Reaction Status Date / Time No Known Drug Allergies Allergy Verified 06/17/17 16:50 shellfish derived AdvReac Severe Verified 06/17/17 15:34 tomato AdvReac Severe Verified 06/17/17 15:34 History of Present Illness: this 32 years old male with alcohol,xanax,marijuana dependence,heroin abused, morphine pill seeking detox,withdrawal symptom,last detox 03/31/17 to 04/05/17 [facility],rehab 05/22 to 04/11/17 not completed bipolar disorder nicotine dependence hypertension,diabetes, seizure longest period of sobriety 8 months Exam Limitations: No Limitations - Ebola screening Have you traveled outside of the country in the last 21 days: No Have you had contact with anyone from an Ebola affected area: No Have you been sick,other than usual withdrawal symptoms: No Do you have a fever: No - Review of Systems Constitutional: Loss of Appetite, Malaise, Night Sweats, Changes in sleep, Weakness EENT: reports: Tearing, Nose Congestion Respiratory: reports: No Symptoms reported Cardiac: reports: Palpitations GI: reports: Diarrhea, Nausea, Vomiting, Abdominal cramping : reports: No Symptoms Reported Musculoskeletal: reports: No Symptoms Reported, Back Pain, Muscle Pain, Neck Pain Neuro: reports: Headache, Tremors Endocrine: reports: No Symptoms Reported Hematology: reports: No Symptoms Reported Psychiatric: reports: No Sypmtoms Reported, Judgement Intact, Mood/Affect Appropiate, Orientated x3 (bipolar disorder) Patient History - Patient Medical History Hx Anemia: No Hx Asthma: Yes Hx Chronic Obstructive Pulmonary Disease (COPD): No Hx Cancer: No Hx Cardiac Disorders: No Hx Congestive Heart Failure: No Hx Hypertension: Yes (on no medication) Hx Hypercholesterolemia: Yes (hx in the past , taking medciation ) Hx Pacemaker: No HX Cerebrovascular Accident: No Hx Seizures: Yes (last 05/22) Hx Dementia: No Hx Diabetes: No Hx Gastrointestinal Disorders: Yes (pancreatitis last 2 weeks ago) Hx Liver Disease: No Hx Genitourinary Disorders: No Hx Sexually Transmitted Disorders: No Hx Renal Disease (ESRD): No Hx Thyroid Disease: No Hx Human Immunodeficiency Virus (HIV): No (06/19 negative) Hx Hepatitis C: No Hx Depression: Yes Hx Suicide Attempt: No Hx Bipolar Disorder: Yes (no med) Hx Schizophrenia: No Other Medical History: no suicidal,no homicidal - Patient Surgical History Past Surgical History: Yes Hx Neurologic Surgery: No Hx Cataract Extraction: No Hx Cardiac Surgery: No Hx Lung Surgery: No Hx Breast Surgery: No Hx Breast Biopsy: No Hx Abdominal Surgery: No Hx Appendectomy: No Hx Cholecystectomy: No Hx Genitourinary Surgery: No Hx Section: No Hx Orthopedic Surgery: No Other Surgical History: abcess removals left side head Anesthesia Reaction: No - PPD History Previous Implant?: Yes Documented Results: Negative w/proof Implanted On Prior [facility] Admission?: Yes Date: 04/02/17 Results: 0mm PPD to be Administered?: No - Smoking Cessation Smoking history: Current every day smoker Have you smoked in the past 12 months: Yes Aproximately how many cigarettes per day: 20 Cigars Per Day: 0 Hx Chewing Tobacco Use: No Initiated information on smoking cessation: Yes 'Breaking Loose' booklet given: 06/17/17 - Substance & Tx. History Hx Alcohol Use: Yes Hx Substance Use: Yes Substance Use Type: Alcohol, Marijuana, Opiates, Tranquilizers Hx Substance Use Treatment: Yes ([facility] 03/31/17 to 04/05/17) - Substances Abused Marijuana/Hashish Route: Smoking Frequency: Daily Amount used: 7-10 GRAMS Age of first use: 14 Date of Last Use: 06/16/17 Alcohol Route: Oral Frequency: Daily Amount used: 3-4 PINTS VODKA Age of first use: 14 Date of Last Use: 06/17/17 morphine pills Route: Oral Frequency: 1-2 times per week Amount used: 5-6 15mg pills Age of first use: 24 Date of Last Use: 06/14/17 KLONOPIN Route: Oral Frequency: Daily Amount used: 5-6 MG Age of first use: 28 Date of Last Use: 06/17/17 Family Disease History - Family Disease History Family Disease History: Diabetes: Father (heroin dependence ), Mother, Brother, Heart Disease: Brother, CA: Grandparent, Respiratory: Grandparent, Father, Other : Father, Sister (NO SISTER) Admission Physical Exam [facility] - Vital Signs Vital Signs: Vital Signs - 24 hr 06/17/17 14:27 Temperature 96.2 F L Pulse Rate 138 H Respiratory 20 Rate Blood Pressure 105/74 - Physical General Appearance: Yes: Moderate Distress, Tremorous, Irritable, Anxious HEENTM: Yes: Normal ENT Inspection, TRICIA, Pharynx Normal Respiratory: Yes: Within Normal Limits, Lungs Clear, Normal Breath Sounds Neck: Yes: Within Normal Limits, Supple, Trachea in good position Breast: Yes: Within Normal Limits Cardiology: Yes: Tachycardia Abdominal: Yes: Normal Bowel Sounds, Non Tender, Soft, Distended Genitourinary: Yes: Within Normal Limits Back: Yes: Normal Inspection, Muscle Spasm Musculoskeletal: Yes: full range of Motion, Back pain, Muscle Pain Neurological: Yes: exterminator II-XII NML intact, Fully Oriented, Alert, Motor Strength 5/5 Integumentary: Yes: Dry Lymphatic: Yes: Within Normal Limits - Diagnostic (1) Uncomplicated sedative, hypnotic, or anxiolytic withdrawal Current Visit: Yes Status: Acute (2) Alcohol dependence with uncomplicated withdrawal Current Visit: No Status: Acute (3) Cannabis dependence Current Visit: Yes Status: Acute (4) Opiate abuse, episodic Current Visit: Yes Status: Acute (5) Nicotine dependence Current Visit: No Status: Acute Qualifiers: Nicotine product type: cigarettes Substance use status: in withdrawal Qualified Code(s): F17.213 - Nicotine dependence, cigarettes, with withdrawal (6) Essential hypertension Current Visit: Yes Status: Acute (7) DM type 2 (diabetes mellitus, type 2) Current Visit: Yes Status: Acute (8) Bipolar disorder Current Visit: Yes Status: Acute Cleared for Admission [facility] - Detox or Rehab [facility] Level of Care: Medically Managed Detox Regimen/Protocol: Librium [facility] Breath Alcohol Content Breath Alcohol Content: 0.143 Urine Drug Screen - Results Drug Screen Negative: No Urine Drug Screen Results: THC-Marijuana, BZO-Benzodiazepines
[2017-06-17] MEDS ORDERED: MENTHOL/PHENOL 1 EACH UD MM PRN (15:58)
[2017-06-17] MEDS ORDERED: LOPERAMIDE HCL 2 MG CAPSULE PO PRN (15:58)
[2017-06-17] MEDS ORDERED: MAGNESIUM CITRATE 300 ML BOTTLE PO PRN (15:58)
[2017-06-17] MEDS ORDERED: MAGNESIUM HYDROX 2400MG/30ML ORAL SUSPENSION 30 ML CUP PO PRN (15:58)
[2017-06-17] MEDS ORDERED: IBUPROFEN 400 MG TABLET (FP) PO PRN (15:58)
[2017-06-17] MEDS ORDERED: P-EPHED 60MG/TRIPROLIDI 2.5MG TABLET PO PRN (15:58)
[2017-06-17] MEDS ORDERED: guaiFENesin/D-METHORPHAN HB 10 ML UNIT-DOSE CUPS PO PRN (15:58)
[2017-06-17] MEDS ORDERED: MAG HYDROX/AL HYDROX/SIMETH 30 ML UNIT-DOSE CUP PO PRN (15:58)
[2017-06-17] MEDS ORDERED: ACETAMINOPHEN 325 MG TABLET (FP) PO PRN (15:58)
[2017-06-17] MEDS ORDERED: chlordiazePOXIDE HCL 25 MG CAPSULE PO ONE (15:58)
[2017-06-17] MEDS ORDERED: NICOTINE POLACRILEX 2 MG GUM BC PRN (15:58)
[2017-06-17] MEDS: chlordiazePOXIDE HCL 25 MG CAPSULE PO SCH ×2 (18:06→22:27)
[2017-06-17] MEDS: NICOTINE 21 MG/24 HOURS TOPICAL PATCH TD SCH (18:10)
[2017-06-17] MEDS: levETIRAcetam 500 MG TABLET (FP) PO SCH (22:27)
[2017-06-17] MEDS: hydrOXYzine PAMOATE 50 MG CAPSULE (FP) PO PRN (22:27)
[2017-06-17] MEDS: cloNIDine HCL 0.1 MG TABLET PO SCH (22:27)
[2017-06-17] MEDS: CYCLOBENZAPRINE HCL 10 MG TABLET (FP) PO PRN (22:29)
[2017-06-17] MEDS: THIAMINE HCL 100 MG TABLET (FP) PO SCH (23:05)
[2017-06-18] MEDS: chlordiazePOXIDE HCL 25 MG CAPSULE PO SCH ×4 (06:08→22:45)
[2017-06-18] MEDS: CYCLOBENZAPRINE HCL 10 MG TABLET (FP) PO PRN ×2 (06:08→19:08)
[2017-06-18 10:00] LABS: MCHC 33.3 g/dl (32.0-35.9); MEAN PLT VOLUME 8.2 fl (7.5-11.1); PLATELET COUNT 210 K/MM3 (134-434); RBC 4.34 M/mm3 (4.00-5.60); RDW 17.5 % (11.9-15.9); WHITE BLOOD COUNT 5.8 K/mm3 (4.0-10.0)
[2017-06-18] MEDS ORDERED: LISINOPRIL 20 MG TABLET (FP) PO SCH (10:00)
[2017-06-18] MEDS ORDERED: ONDANSETRON *ODT* 4 MG TABLET SL PRN (10:19)
[2017-06-18] MEDS ORDERED: NAPROXEN 375 MG TABLET (FP) PO PRN (10:20)
[2017-06-18 10:23] LABS: URINE APPEARANCE CLEAR; URINE BILIRUBIN NEGATIVE (NEGATIVE); URINE BLOOD NEGATIVE (NEGATIVE); URINE COLOR LTYELLOW; URINE GLUCOSE (UA) NEGATIVE (NEGATIVE); URINE KETONE TRACE (NEGATIVE); URINE LEUK ESTERASE NEGATIVE (NEGATIVE); URINE NITRITE NEGATIVE (NEGATIVE); URINE PROTEIN 1+ (NEGATIVE); URINE UROBILINOGEN NEGATIVE mg/dL (0.2-1.0)
[2017-06-18] MEDS: levETIRAcetam 500 MG TABLET (FP) PO SCH ×2 (10:25→22:45)
[2017-06-18] MEDS: PRENATAL VITAMINS W/ FOLIC ACID TABLET (FP) PO SCH (10:25)
[2017-06-18] MEDS: cloNIDine HCL 0.1 MG TABLET PO SCH ×2 (10:25→22:45)
[2017-06-18] MEDS: NICOTINE 21 MG/24 HOURS TOPICAL PATCH TD SCH (10:26)
[2017-06-18 10:29] LABS: ALBUMIN 3.9 g/dl (3.4-5.0); ANION GAP 18 (8-16); BLOOD UREA NITROGEN 10 mg/dL (7-18); CHLORIDE 104 mmol/L (98-107); CO2 19 mmol/L (21-32); GLUCOSE,RANDOM 90 mg/dL (74-106); POTASSIUM 3.1 mmol/L (3.5-5.1); SODIUM 141 mmol/L (136-145)
[2017-06-18 10:34] LABS: ALK PHOS 50 U/L (45-117); BILIRUBIN,TOTAL 0.6 mg/dL (0.2-1.0); CREATININE 1.2 mg/dL (0.7-1.3); SGOT/AST 44 U/L (15-37); SGPT/ALT 30 U/L (12-78); TOT PROT 8.1 g/dl (6.4-8.2)
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
[2017-06-18 10:47] LABS: URINE BACTERIA RARE /hpf (NONE SEEN); URINE MUCUS RARE
[2017-06-18] MEDS: NAPROXEN 500 MG TABLET (FP) PO PRN (12:31)
[2017-06-18] MEDS: chlordiazePOXIDE HCL 25 MG CAPSULE PO PRN ×2 (14:05→19:08)
[2017-06-18] MEDS: hydrOXYzine PAMOATE 50 MG CAPSULE (FP) PO PRN (17:23)
--- NOTE | 2017-06-18 18:16 | PN ---
S CIWA - CIWA Score Nausea/Vomitin Muscle Tremors: 3 Anxiety: 4-Mod. Anxious/Guarded Agitation: 2 Paroxysmal Sweats: 3 Orientation: 0-Oriented Tacttile Disturbances: 3-Moderate Itch/Numb/Burn Auditory Disturbances: 0-None Visual Disturbances: 0-None Headache: 0-None Present CIWA-Ar Total Score: 18 BHS Progress Note (SOAP) Subjective: Nausea, Diarrhea, Tremors, Interrupted Sleep, Anxious, Sweating. Objective: PATIENT A & O X 3, OBSERVED AMBULATING ON UNIT. NO ACUTE DISTRESS. 06/18/17 18:11 Vital Signs Temperature 98.0 F 06/18/17 15:07 Pulse Rate 71 06/18/17 15:07 Respiratory Rate 18 06/18/17 15:07 Blood Pressure 156/98 06/18/17 15:07 O2 Sat by Pulse Oximetry (%) Laboratory Tests 06/17/17 06/18/17 06/18/17 15:58 06:00 06:00 WBC 5.8 RBC 4.34 D Hgb 13.0 D Hct 39.0 D MCV 90.0 MCH 30.0 MCHC 33.3 RDW 17.5 H D Plt Count 210 MPV 8.2 Sodium 141 Potassium 3.1 L Chloride 104 Carbon Dioxide 19 L D Anion Gap 18 H BUN 10 D Creatinine 1.2 Creat Clearance w eGFR > 60 POC Glucometer 96 Random Glucose 90 Calcium 9.0 Total Bilirubin 0.6 AST 44 H D ALT 30 Alkaline Phosphatase 50 Total Protein 8.1 D Albumin 3.9 D Urine Color Urine Appearance Urine pH Ur Specific [place] Urine Protein Urine Glucose (UA) Urine Ketones Urine Blood Urine Nitrite Urine Bilirubin Urine Urobilinogen Ur Leukocyte Esterase Urine WBC (Auto) Urine RBC (Auto) Urine Bacteria Urine Mucus RPR Titer 06/18/17 06/18/17 06:00 08:50 WBC RBC Hgb Hct MCV MCH MCHC RDW Plt Count MPV Sodium Potassium Chloride Carbon Dioxide Anion Gap BUN Creatinine Creat Clearance w eGFR POC Glucometer Random Glucose Calcium Total Bilirubin AST ALT Alkaline Phosphatase Total Protein Albumin Urine Color Ltyellow Urine Appearance Clear Urine pH 6.0 Ur Specific [place] 1.014 Urine Protein 1+ H Urine Glucose (UA) Negative Urine Ketones Trace H Urine Blood Negative Urine Nitrite Negative Urine Bilirubin Negative Urine Urobilinogen Negative Ur Leukocyte Esterase Negative Urine WBC (Auto) <1 Urine RBC (Auto) None Urine Bacteria Rare Urine Mucus Rare RPR Titer Nonreactive LABS NOTED. HCV AB RESULT PENDING. 06/18/17 18:16 Assessment: 06/18/17 18:12 WITHDRAWAL SYMPTOMS. HYPOKALEMIA. HYPERTENSION. 06/18/17 18:15 Plan: CONTINUE DETOX. K-DUR, 40 MEQ X 1 NOW, THEN 20 MEQ PO BID AFTER. INCREASE LISINOPRIL TO 20 MG PO BID FOR PERSISTENTLY ELEVATED BP. PRN ZOPFRAN SL FOR NAUSEA. PRN IMMODIUM FOR DIARRHEA. PRN FLEXERIL FOR BODY ACHES / MUSCLE SPASMS. INCREASE DAILY PO FLUID INTAKE.
--- NOTE | 2017-06-18 18:46 | EKG ---
Test Reason : Blood Pressure : / mmHG Vent. Rate : 096 BPM Atrial Rate : 096 BPM P-R Int : 158 ms QRS Dur : 090 ms QT Int : 360 ms P-R-T Axes : 049 013 026 degrees QTc Int : 454 ms NORMAL SINUS RHYTHM NORMAL ECG WHEN COMPARED WITH ECG OF 06-APR-2017 14:57, QT HAS LENGTHENED Confirmed by VAHE OROZCO MD ([id number]) on 06/18/2017 6:46:06 PM Referred By: Confirmed By:VAHE OROZCO MD
[2017-06-18] MEDS ORDERED: POTASSIUM CHLORIDE TABS 20 MEQ TABLET.ER (FP) PO ONE (19:15)
[2017-06-18] MEDS: THIAMINE HCL 100 MG TABLET (FP) PO SCH (22:45)
[2017-06-18] MEDS: LISINOPRIL 20 MG TABLET (FP) PO SCH (22:45)
[2017-06-18] MEDS: QUEtiapine FUMARATE 200 MG TABLET PO SCH (22:45)
[2017-06-19] MEDS: hydrOXYzine PAMOATE 50 MG CAPSULE (FP) PO PRN ×2 (00:12→17:05)
[2017-06-19] MEDS: CYCLOBENZAPRINE HCL 10 MG TABLET (FP) PO PRN ×2 (00:12→17:04)
[2017-06-19] MEDS: chlordiazePOXIDE HCL 25 MG CAPSULE PO PRN ×3 (00:38→19:57)
[2017-06-19] MEDS ORDERED: diphenhydrAMINE HCL 25 MG CAPSULE (FP) PO ONE (01:15)
[2017-06-19] MEDS: chlordiazePOXIDE HCL 25 MG CAPSULE PO SCH ×2 (05:46→10:31)
[2017-06-19] MEDS: POTASSIUM CHLORIDE TABS 20 MEQ TABLET.ER (FP) PO SCH ×2 (10:31→17:01)
[2017-06-19] MEDS: LISINOPRIL 20 MG TABLET (FP) PO SCH ×2 (10:31→22:07)
[2017-06-19] MEDS: levETIRAcetam 500 MG TABLET (FP) PO SCH ×2 (10:31→22:07)
[2017-06-19] MEDS: NICOTINE 21 MG/24 HOURS TOPICAL PATCH TD SCH (10:31)
[2017-06-19] MEDS: PRENATAL VITAMINS W/ FOLIC ACID TABLET (FP) PO SCH (10:31)
[2017-06-19] MEDS: cloNIDine HCL 0.1 MG TABLET PO SCH ×2 (10:31→22:07)
[2017-06-19] MEDS: NAPROXEN 500 MG TABLET (FP) PO PRN (13:05)
[2017-06-19] MEDS ORDERED: COLLOIDAL OATMEAL 1 BAR EACH TP PRN (15:45)
--- NOTE | 2017-06-19 16:11 | PN ---
S CIWA - CIWA Score Nausea/Vomitin Muscle Tremors: 3 Anxiety: 3 Agitation: 3 Paroxysmal Sweats: 3 Orientation: 0-Oriented Tacttile Disturbances: 0-None Auditory Disturbances: 0-None Visual Disturbances: 0-None Headache: 1-Very Mild CIWA-Ar Total Score: 16 BHS Progress Note (SOAP) Subjective: Tremor, headache, sweating interrupted sleep Objective: 06/19/17 16:06 Last Vital Signs Temp Pulse Resp BP Pulse Ox 98.4 F 72 16 127/88 06/19/17 14:45 06/19/17 14:45 06/19/17 14:45 06/19/17 14:45 Laboratory Tests 06/17/17 06/18/17 06/18/17 15:58 06:00 06:00 WBC 5.8 RBC 4.34 D Hgb 13.0 D Hct 39.0 D MCV 90.0 MCH 30.0 MCHC 33.3 RDW 17.5 H D Plt Count 210 MPV 8.2 Sodium 141 Potassium 3.1 L Chloride 104 Carbon Dioxide 19 L D Anion Gap 18 H BUN 10 D Creatinine 1.2 Creat Clearance w eGFR > 60 POC Glucometer 96 Random Glucose 90 Calcium 9.0 Total Bilirubin 0.6 AST 44 H D ALT 30 Alkaline Phosphatase 50 Total Protein 8.1 D Albumin 3.9 D Urine Color Urine Appearance Urine pH Ur Specific [place] Urine Protein Urine Glucose (UA) Urine Ketones Urine Blood Urine Nitrite Urine Bilirubin Urine Urobilinogen Ur Leukocyte Esterase Urine WBC (Auto) Urine RBC (Auto) Urine Bacteria Urine Mucus RPR Titer Hep C Ab Diagnostic 06/18/17 06/18/17 06/18/17 06:00 06:00 08:50 WBC RBC Hgb Hct MCV MCH MCHC RDW Plt Count MPV Sodium Potassium Chloride Carbon Dioxide Anion Gap BUN Creatinine Creat Clearance w eGFR POC Glucometer Random Glucose Calcium Total Bilirubin AST ALT Alkaline Phosphatase Total Protein Albumin Urine Color Ltyellow Urine Appearance Clear Urine pH 6.0 Ur Specific [place] 1.014 Urine Protein 1+ H Urine Glucose (UA) Negative Urine Ketones Trace H Urine Blood Negative Urine Nitrite Negative Urine Bilirubin Negative Urine Urobilinogen Negative Ur Leukocyte Esterase Negative Urine WBC (Auto) <1 Urine RBC (Auto) None Urine Bacteria Rare Urine Mucus Rare RPR Titer Nonreactive Hep C Ab Diagnostic <0.1 Labs reviewed: K 3.1, UA 1+ protein Assessment: 06/19/17 16:07 Withdrawal symptoms Noted with hypokalemia and proteinuria Plan: Continue detox Hypokalemia: supplemented, repeat serum K level Proteinuria: encouraged increased PO hydration (water), repeat UA
[2017-06-19] MEDS: chlordiazePOXIDE 5 MG CAPSULE PO SCH ×2 (16:59→22:07)
[2017-06-19] MEDS: THIAMINE HCL 100 MG TABLET (FP) PO SCH (22:07)
[2017-06-19] MEDS: QUEtiapine FUMARATE 200 MG TABLET PO SCH (22:07)
[2017-06-19 22:49] LABS: URINE APPEARANCE CLEAR; URINE BILIRUBIN NEGATIVE (NEGATIVE); URINE BLOOD NEGATIVE (NEGATIVE); URINE COLOR LTYELLOW; URINE GLUCOSE (UA) NEGATIVE (NEGATIVE); URINE KETONE NEGATIVE (NEGATIVE); URINE LEUK ESTERASE NEGATIVE (NEGATIVE); URINE NITRITE NEGATIVE (NEGATIVE); URINE PROTEIN NEGATIVE (NEGATIVE); URINE UROBILINOGEN NEGATIVE mg/dL (0.2-1.0)
[2017-06-20] MEDS: NAPROXEN 500 MG TABLET (FP) PO PRN (00:51)
[2017-06-20] MEDS: CYCLOBENZAPRINE HCL 10 MG TABLET (FP) PO PRN ×2 (00:51→13:41)
[2017-06-20] MEDS: chlordiazePOXIDE HCL 25 MG CAPSULE PO PRN (00:52)
[2017-06-20] MEDS: chlordiazePOXIDE 5 MG CAPSULE PO SCH ×2 (05:43→10:34)
[2017-06-20] MEDS: LISINOPRIL 20 MG TABLET (FP) PO SCH ×2 (10:33→22:30)
[2017-06-20] MEDS: cloNIDine HCL 0.1 MG TABLET PO SCH ×2 (10:33→22:30)
[2017-06-20] MEDS: levETIRAcetam 500 MG TABLET (FP) PO SCH ×2 (10:33→22:30)
[2017-06-20] MEDS: PRENATAL VITAMINS W/ FOLIC ACID TABLET (FP) PO SCH (10:33)
[2017-06-20] MEDS: POTASSIUM CHLORIDE TABS 20 MEQ TABLET.ER (FP) PO SCH ×2 (10:33→17:04)
[2017-06-20] MEDS: NICOTINE 21 MG/24 HOURS TOPICAL PATCH TD SCH (10:34)
[2017-06-20] MEDS ORDERED: QUEtiapine FUMARATE 50 MG TABLET PO ONE (11:30)
--- NOTE | 2017-06-20 13:09 | PN ---
BHS Progress Note (SOAP) Subjective: sleeplessness shakes sweats irritable Objective: 06/20/17 13:04 Anxious Irritable A & O x 3 Vital Signs Temperature 96.1 F L 06/20/17 09:14 Pulse Rate 85 06/20/17 09:14 Respiratory Rate 20 06/20/17 09:14 Blood Pressure 119/74 06/20/17 09:14 O2 Sat by Pulse Oximetry (%) Laboratory Last Values WBC 5.8 K/mm3 (4.0-10.0) 06/18/17 06:00 RBC 4.34 M/mm3 (4.00-5.60) D 06/18/17 06:00 Hgb 13.0 GM/dL (11.7-16.9) D 06/18/17 06:00 Hct 39.0 % (35.4-49) D 06/18/17 06:00 MCV 90.0 fl (80-96) 06/18/17 06:00 MCH 30.0 pg (25.7-33.7) 06/18/17 06:00 MCHC 33.3 g/dl (32.0-35.9) 06/18/17 06:00 RDW 17.5 % (11.9-15.9) H D 06/18/17 06:00 Plt Count 210 K/MM3 (134-434) 06/18/17 06:00 MPV 8.2 fl (7.5-11.1) 06/18/17 06:00 Sodium 141 mmol/L (136-145) 06/18/17 06:00 Potassium 4.4 mmol/L (3.5-5.1) D 06/20/17 07:00 Chloride 104 mmol/L (98-107) 06/18/17 06:00 Carbon Dioxide 19 mmol/L (21-32) L D 06/18/17 06:00 Anion Gap 18 (8-16) H 06/18/17 06:00 BUN 10 mg/dL (7-18) D 06/18/17 06:00 Creatinine 1.2 mg/dL (0.7-1.3) 06/18/17 06:00 Creat Clearance w eGFR > 60 (>60) 06/18/17 06:00 POC Glucometer 96 UNITS (80-120) 06/17/17 15:58 Random Glucose 90 mg/dL (74-106) 06/18/17 06:00 Calcium 9.0 mg/dL (8.5-10.1) 06/18/17 06:00 Total Bilirubin 0.6 mg/dL (0.2-1.0) 06/18/17 06:00 AST 44 U/L (15-37) H D 06/18/17 06:00 ALT 30 U/L (12-78) 06/18/17 06:00 Alkaline Phosphatase 50 U/L (45-117) 06/18/17 06:00 Total Protein 8.1 g/dl (6.4-8.2) D 06/18/17 06:00 Albumin 3.9 g/dl (3.4-5.0) D 06/18/17 06:00 Urine Color Ltyellow 06/19/17 18:35 Urine Appearance Clear 06/19/17 18:35 Urine pH 5.0 (5.0-8.0) 06/19/17 18:35 Ur Specific [place] 1.011 (1.001-1.035) 06/19/17 18:35 Urine Protein Negative (NEGATIVE) 06/19/17 18:35 Urine Glucose (UA) Negative (NEGATIVE) 06/19/17 18:35 Urine Ketones Negative (NEGATIVE) 06/19/17 18:35 Urine Blood Negative (NEGATIVE) 06/19/17 18:35 Urine Nitrite Negative (NEGATIVE) 06/19/17 18:35 Urine Bilirubin Negative (NEGATIVE) 06/19/17 18:35 Urine Urobilinogen Negative mg/dL (0.2-1.0) 06/19/17 18:35 Ur Leukocyte Esterase Negative (NEGATIVE) 18 18:35 Urine WBC (Auto) <1 /hpf (3-5) 06/18/17 08:50 Urine RBC (Auto) None /hpf (0-3) 06/18/17 08:50 Urine Bacteria Rare /hpf (NONE SEEN) 06/18/17 08:50 Urine Mucus Rare 06/18/17 08:50 RPR Titer Nonreactive (NONREACTIVE) 06/18/17 06:00 Hep C Ab Diagnostic <0.1 s/co ratio (0.0-0.9) 06/18/17 06:00 Repeat labs noted; hypokalemia and UA corrected Assessment: 06/20/17 13:09 withdrawal sx Plan: continue detox
[2017-06-20] MEDS: hydrOXYzine PAMOATE 50 MG CAPSULE (FP) PO PRN ×2 (13:41→17:04)
[2017-06-20] MEDS: chlordiazePOXIDE HCL 10 MG CAPSULE PO SCH ×2 (17:03→22:29)
--- NOTE | 2017-06-20 18:00 | PN ---
[facility] Progress Note Note: Psychiatry Attending's note (follow-up) : Approached by patient. Complaints : Recurrent anxiety and insomnia. Requests an increase in seroquel dose. Mr Flaherty is conversant,controlled and future-oriented. Coping well with his recent loss (stillborn child). Noted as well groomed and visible on the unit.Sociable. Eats well.Maintains adequate rapport with the staff. Wishes to transition to rehabilitation after this detoxification. Support and reassurance are provided in this session. Patient is receptive to psychotherapy.Feelings of relief are expressed. Seroquel is raised to 300 mg po hs + 100 mg po daily. Seroquel 50 mg was dispensed to the patient today as a ONE time dose. Mr Flaherty has verbalized his agreement to this intervention. Stable mental status.Will follow.
[2017-06-20] MEDS ORDERED: QUEtiapine FUMARATE 300 MG TABLET PO SCH (22:00)
[2017-06-20] MEDS: THIAMINE HCL 100 MG TABLET (FP) PO SCH (22:29)
[2017-06-21] MEDS: CYCLOBENZAPRINE HCL 10 MG TABLET (FP) PO PRN (01:37)
[2017-06-21] MEDS: NAPROXEN 500 MG TABLET (FP) PO PRN (01:37)
[2017-06-21] MEDS: chlordiazePOXIDE HCL 10 MG CAPSULE PO SCH ×2 (05:55→10:28)
[2017-06-21] MEDS: hydrOXYzine PAMOATE 50 MG CAPSULE (FP) PO PRN (05:56)
[2017-06-21] MEDS ORDERED: QUEtiapine FUMARATE 100 MG TABLET (FP) PO SCH (10:00)
[2017-06-21] MEDS: LISINOPRIL 20 MG TABLET (FP) PO SCH (10:26)
[2017-06-21] MEDS: cloNIDine HCL 0.1 MG TABLET PO SCH (10:26)
[2017-06-21] MEDS: POTASSIUM CHLORIDE TABS 20 MEQ TABLET.ER (FP) PO SCH (10:26)
[2017-06-21] MEDS: levETIRAcetam 500 MG TABLET (FP) PO SCH (10:26)
[2017-06-21] MEDS: PRENATAL VITAMINS W/ FOLIC ACID TABLET (FP) PO SCH (10:26)
[2017-06-21] MEDS: NICOTINE 21 MG/24 HOURS TOPICAL PATCH TD SCH (10:27)
--- NOTE | 2017-06-21 11:49 | PN ---
S Progress Note (SOAP) Subjective: Patient denies any current detox symptoms and reports that he is feeling well overall. Objective: PATIENT A & O X 3, OBSERVED AMBULATING ON UNIT. NO ACUTE DISTRESS. 06/21/17 11:48 Vital Signs Temperature 96.0 F L 06/21/17 09:49 Pulse Rate 90 06/21/17 09:49 Respiratory Rate 20 06/21/17 09:49 Blood Pressure 135/86 06/21/17 09:49 O2 Sat by Pulse Oximetry (%) Laboratory Tests 06/17/17 06/18/17 06/18/17 15:58 06:00 06:00 WBC 5.8 RBC 4.34 D Hgb 13.0 D Hct 39.0 D MCV 90.0 MCH 30.0 MCHC 33.3 RDW 17.5 H D Plt Count 210 MPV 8.2 Sodium 141 Potassium 3.1 L Chloride 104 Carbon Dioxide 19 L D Anion Gap 18 H BUN 10 D Creatinine 1.2 Creat Clearance w eGFR > 60 POC Glucometer 96 Random Glucose 90 Calcium 9.0 Total Bilirubin 0.6 AST 44 H D ALT 30 Alkaline Phosphatase 50 Total Protein 8.1 D Albumin 3.9 D Urine Color Urine Appearance Urine pH Ur Specific [place] Urine Protein Urine Glucose (UA) Urine Ketones Urine Blood Urine Nitrite Urine Bilirubin Urine Urobilinogen Ur Leukocyte Esterase Urine WBC (Auto) Urine RBC (Auto) Urine Bacteria Urine Mucus RPR Titer Hep C Ab Diagnostic 06/18/17 06/18/17 06/18/17 06:00 06:00 08:50 WBC RBC Hgb Hct MCV MCH MCHC RDW Plt Count MPV Sodium Potassium Chloride Carbon Dioxide Anion Gap BUN Creatinine Creat Clearance w eGFR POC Glucometer Random Glucose Calcium Total Bilirubin AST ALT Alkaline Phosphatase Total Protein Albumin Urine Color Ltyellow Urine Appearance Clear Urine pH 6.0 Ur Specific [place] 1.014 Urine Protein 1+ H Urine Glucose (UA) Negative Urine Ketones Trace H Urine Blood Negative Urine Nitrite Negative Urine Bilirubin Negative Urine Urobilinogen Negative Ur Leukocyte Esterase Negative Urine WBC (Auto) <1 Urine RBC (Auto) None Urine Bacteria Rare Urine Mucus Rare RPR Titer Nonreactive Hep C Ab Diagnostic <0.1 06/19/17 06/20/17 18:35 07:00 WBC RBC Hgb Hct MCV MCH MCHC RDW Plt Count MPV Sodium Potassium 4.4 D Chloride Carbon Dioxide Anion Gap BUN Creatinine Creat Clearance w eGFR POC Glucometer Random Glucose Calcium Total Bilirubin AST ALT Alkaline Phosphatase Total Protein Albumin Urine Color Ltyellow Urine Appearance Clear Urine pH 5.0 Ur Specific [place] 1.011 Urine Protein Negative Urine Glucose (UA) Negative Urine Ketones Negative Urine Blood Negative Urine Nitrite Negative Urine Bilirubin Negative Urine Urobilinogen Negative Ur Leukocyte Esterase Negative Urine WBC (Auto) Urine RBC (Auto) Urine Bacteria Urine Mucus RPR Titer Hep C Ab Diagnostic LABS NOTED. Assessment: 06/21/17 11:48 COMPLETION OF DETOX REGIMEN. 06/21/17 11:49 Plan: PATIENT SCHEDULED FOR DISCHARGE FROM DETOX TODAY. PATIENT WILL GO ON TO [facility] FOR AFTERCARE.
--- NOTE | 2017-06-21 12:00 | DS ---
[facility] Detox Discharge Summary Admission Date: 06/17/17 Discharge Date: 06/21/17 - History Present History: Alcohol Dependence, Cannabis Dependence, Opioid Dependence, Sedative Dependence Additional Comments: PATIENT GOING TO [facility] ([place] FOR AFTERCARE. PATIENT' S K LEVEL CHECKED PRIOR TO DISCHARGE FROM DETOX -WITHIN NORMAL LIMITS CURRENTLY. PATIENT WAS DISCHARGED FROM DETOX UNIT TO BE TAKEN TO REHAB UNIT IN STABLE MEDICAL CONDITION. Pertinent Past History: Asthma, HTN, Type II DM, History of Seizures, Bipolar disorder, Nicotine Dependence, Depression, Grief at Loss of A Child, Hypokalemia, History of Pancreatitis. - Physical Exam Results Vital Signs: Vital Signs Temperature 96.0 F L 06/21/17 09:49 Pulse Rate 90 06/21/17 09:49 Respiratory Rate 20 06/21/17 09:49 Blood Pressure 135/86 06/21/17 09:49 O2 Sat by Pulse Oximetry (%) Pertinent Admission Physical Exam Findings: WITHDRAWAL SYMPTOMS. Laboratory Tests 06/17/17 06/18/17 06/18/17 15:58 06:00 06:00 WBC 5.8 RBC 4.34 D Hgb 13.0 D Hct 39.0 D MCV 90.0 MCH 30.0 MCHC 33.3 RDW 17.5 H D Plt Count 210 MPV 8.2 Sodium 141 Potassium 3.1 L Chloride 104 Carbon Dioxide 19 L D Anion Gap 18 H BUN 10 D Creatinine 1.2 Creat Clearance w eGFR > 60 POC Glucometer 96 Random Glucose 90 Calcium 9.0 Total Bilirubin 0.6 AST 44 H D ALT 30 Alkaline Phosphatase 50 Total Protein 8.1 D Albumin 3.9 D Urine Color Urine Appearance Urine pH Ur Specific [place] Urine Protein Urine Glucose (UA) Urine Ketones Urine Blood Urine Nitrite Urine Bilirubin Urine Urobilinogen Ur Leukocyte Esterase Urine WBC (Auto) Urine RBC (Auto) Urine Bacteria Urine Mucus RPR Titer Hep C Ab Diagnostic 06/18/17 06/18/17 06/18/17 06:00 06:00 08:50 WBC RBC Hgb Hct MCV MCH MCHC RDW Plt Count MPV Sodium Potassium Chloride Carbon Dioxide Anion Gap BUN Creatinine Creat Clearance w eGFR POC Glucometer Random Glucose Calcium Total Bilirubin AST ALT Alkaline Phosphatase Total Protein Albumin Urine Color Ltyellow Urine Appearance Clear Urine pH 6.0 Ur Specific [place] 1.014 Urine Protein 1+ H Urine Glucose (UA) Negative Urine Ketones Trace H Urine Blood Negative Urine Nitrite Negative Urine Bilirubin Negative Urine Urobilinogen Negative Ur Leukocyte Esterase Negative Urine WBC (Auto) <1 Urine RBC (Auto) None Urine Bacteria Rare Urine Mucus Rare RPR Titer Nonreactive Hep C Ab Diagnostic <0.1 06/19/17 06/20/17 18:35 07:00 WBC RBC Hgb Hct MCV MCH MCHC RDW Plt Count MPV Sodium Potassium 4.4 D Chloride Carbon Dioxide Anion Gap BUN Creatinine Creat Clearance w eGFR POC Glucometer Random Glucose Calcium Total Bilirubin AST ALT Alkaline Phosphatase Total Protein Albumin Urine Color Ltyellow Urine Appearance Clear Urine pH 5.0 Ur Specific [place] 1.011 Urine Protein Negative Urine Glucose (UA) Negative Urine Ketones Negative Urine Blood Negative Urine Nitrite Negative Urine Bilirubin Negative Urine Urobilinogen Negative Ur Leukocyte Esterase Negative Urine WBC (Auto) Urine RBC (Auto) Urine Bacteria Urine Mucus RPR Titer Hep C Ab Diagnostic LABS NOTED. - Treatment Hospital Course: Detox Protocol Followed, Detoxed Safely, Responded well, Discharged Condition Good, Rehab Referral Accepted Patient has Accepted a Rehab Referral to: [facility] ([place] . - Medication Discharge Medications: Ambulatory Orders Sertraline HCl [Zoloft -] 100 mg PO DAILY 03/06/15 Lisinopril [Prinivil] 20 mg PO DAILY #30 tablet 04/11/17 levETIRAcetam [Keppra -] 500 mg PO BID #60 tablet 04/11/17 Quetiapine Fumarate [Seroquel -] 500 mg PO HS 06/17/17 Quetiapine Fumarate [Seroquel -] 50 mg PO DAILY #30 tablet 06/20/17 Quetiapine Fumarate [Seroquel -] 300 mg PO HS #30 tablet 06/20/17 - Diagnosis (1) Alcohol dependence with uncomplicated withdrawal Current Visit: Yes Status: Acute (2) DM type 2 (diabetes mellitus, type 2) Current Visit: Yes Status: Chronic Qualifiers: Diabetes mellitus [facility] insulin use: without [facility] use Diabetes mellitus complication status: without complication Qualified Code(s): E11.9 - Type 2 diabetes mellitus without complications (3) Essential hypertension Current Visit: Yes Status: Chronic (4) Nicotine dependence Current Visit: Yes Status: Chronic Qualifiers: Nicotine product type: cigarettes Substance use status: in withdrawal Qualified Code(s): F17.213 - Nicotine dependence, cigarettes, with withdrawal (5) Opiate abuse, episodic Current Visit: Yes Status: Acute (6) Uncomplicated sedative, hypnotic, or anxiolytic withdrawal Current Visit: Yes Status: Acute (7) Bipolar disorder Current Visit: Yes Status: Chronic Qualifiers: Active/Remission status: remission status unspecified Qualified Code(s): F31.9 - Bipolar disorder, unspecified (8) Cannabis dependence Current Visit: Yes Status: Chronic (9) Grief at loss of child Current Visit: Yes Status: Chronic (10) Insomnia Current Visit: Yes Status: Chronic Qualifiers: Insomnia type: unspecified Qualified Code(s): G47.00 - Insomnia, unspecified (11) Substance induced mood disorder Current Visit: Yes Status: Chronic (12) Hypokalemia Current Visit: Yes Status: Acute (13) Hypertension Current Visit: Yes Status: Chronic Qualifiers: Hypertension type: essential hypertension Qualified Code(s): I10 - Essential (primary) hypertension - AMA Did Patient Leave Against Medical Advice: No
[2017-06-21 14:09] VITALS: BP 124/87; PULSE 93; TEMP 98.1
== END 2017-06-21 14:36 | disposition other institution (70) | DRG 773 ==
LOC: YASAS 11:42 → Y3N 16:54
PROVIDERS: ADMIT Internal Medicine; ATTEND Internal Medicine
PROC: HZ2ZZZZ Detoxification Services for Substance Abuse Treatment (ICD-10-PCS; principal; 2017-06-17)
DX: F11.20 Opioid dependence, uncomplicated (principal); F13.230 Sedative, hypnotic or anxiolytic dependence with withdrawal, uncomplicated; F10.230 Alcohol dependence with withdrawal, uncomplicated; F14.20 Cocaine dependence, uncomplicated; F12.20 Cannabis dependence, uncomplicated; F17.210 Nicotine dependence, cigarettes, uncomplicated; F19.24 Other psychoactive substance dependence with psychoactive substance-induced mood disorder; F31.9 Bipolar disorder, unspecified; F43.21 Adjustment disorder with depressed mood; Z63.4 Disappearance and death of family member; I10 Essential (primary) hypertension; E11.9 Type 2 diabetes mellitus without complications; J45.909 Unspecified asthma, uncomplicated; E87.6 Hypokalemia; Z87.19 Personal history of other diseases of the digestive system
CPT/HCPCS: 36415; 80053; 81003; 81015; 82962; 84132; 85027; 86593; 93005; 93010; J0735

== ENCOUNTER 2017-06-21 14:36 | Inpatient (IN) | payer OTHER ==
--- NOTE | 2017-06-21 12:10 | HP ---
[facility] Re[facility] Assess/Revision - Admission History Admitted to Rehab from: [facility] Date of Admission to Rehab: 06/21/2017 - Vital signs Vital Signs: NOTED; STABLE. - Findings Detox History & Physical reviewed: Yes Concur with findings: Yes Comments/Additional Findings: PATIENT'S MEDICAL / MEDICATION HISTORY REVIEWED PRIOR TO [place] FROM DETOX UNIT. PATIENT'S POTASSIUM LEVEL CHECKED PRIOR TO DISCHARGE - CURRENTLY WITHIN NORMAL LIMITS. PATIENT WAS DISCHARGED FROM DETOX UNIT TO BE TAKEN TO REHAB UNIT IN STABLE MEDICAL CONDITION. Inpatient Rehab Admission - Initial Determination Are CD services needed?: Yes Free of communicable disease: Yes Not in need of hospitalization: Yes - Rehab Admission Criteria Previous failed treatment: Yes Comorbidities: Yes Patient is meeting Inpatient Rehab admission criteria:: Yes
[~2017-06-21 14:36] MED LIST: ACETAMINOPHEN 325 MG TABLET (FP) PO PRN; LOPERAMIDE HCL 2 MG CAPSULE PO PRN; MAG HYDROX/AL HYDROX/SIMETH 30 ML UNIT-DOSE CUP PO PRN; MAGNESIUM CITRATE 300 ML BOTTLE PO PRN; MENTHOL/PHENOL 1 EACH UD MM PRN; NAPROXEN 375 MG TABLET (FP) PO PRN; NICOTINE POLACRILEX 2 MG GUM BUC PRN; P-EPHED 60MG/TRIPROLIDI 2.5MG TABLET PO PRN; guaiFENesin/D-METHORPHAN HB 10 ML UNIT-DOSE CUPS PO PRN
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
[2017-06-21] MEDS ORDERED: COLLOIDAL OATMEAL 1 BAR EACH TP PRN (16:13)
[2017-06-21] MEDS: QUEtiapine FUMARATE 400 MG TABLET PO SCH (21:26)
[2017-06-21] MEDS: LISINOPRIL 20 MG TABLET (FP) PO SCH (21:26)
[2017-06-21] MEDS: THIAMINE HCL 100 MG TABLET (FP) PO SCH (21:26)
[2017-06-21] MEDS: levETIRAcetam 500 MG TABLET (FP) PO SCH (21:26)
[2017-06-21] MEDS: hydrOXYzine PAMOATE 50 MG CAPSULE (FP) PO PRN (23:44)
[2017-06-22] MEDS: LISINOPRIL 20 MG TABLET (FP) PO SCH ×2 (10:11→21:33)
[2017-06-22] MEDS: QUEtiapine FUMARATE 50 MG TABLET PO SCH (10:11)
[2017-06-22] MEDS: levETIRAcetam 500 MG TABLET (FP) PO SCH ×2 (10:11→21:33)
[2017-06-22] MEDS: PRENATAL VITAMINS W/ FOLIC ACID TABLET (FP) PO SCH (10:11)
[2017-06-22] MEDS: SERTRALINE HCL 50 MG TABLET (FP) PO SCH (10:12)
[2017-06-22] MEDS: NICOTINE 21 MG/24 HOURS TOPICAL PATCH TD SCH (10:13)
[2017-06-22] MEDS ORDERED: ALBUTEROL SO4 18 GM HFA INHALER IH PRN (14:42)
[2017-06-22] MEDS: hydrOXYzine PAMOATE 50 MG CAPSULE (FP) PO PRN ×2 (17:38→21:35)
[2017-06-22] MEDS: QUEtiapine FUMARATE 400 MG TABLET PO SCH (21:33)
[2017-06-22] MEDS: THIAMINE HCL 100 MG TABLET (FP) PO SCH (21:33)
[2017-06-23] MEDS: PRENATAL VITAMINS W/ FOLIC ACID TABLET (FP) PO SCH (10:32)
[2017-06-23] MEDS: levETIRAcetam 500 MG TABLET (FP) PO SCH ×2 (10:32→21:18)
[2017-06-23] MEDS: NICOTINE 21 MG/24 HOURS TOPICAL PATCH TD SCH (10:32)
[2017-06-23] MEDS: SERTRALINE HCL 50 MG TABLET (FP) PO SCH (10:32)
[2017-06-23] MEDS: hydrOXYzine PAMOATE 50 MG CAPSULE (FP) PO PRN ×2 (10:32→21:18)
[2017-06-23] MEDS: LISINOPRIL 20 MG TABLET (FP) PO SCH ×2 (10:32→21:19)
[2017-06-23] MEDS: QUEtiapine FUMARATE 50 MG TABLET PO SCH (10:32)
[2017-06-23] MEDS: MAGNESIUM HYDROX 2400MG/30ML ORAL SUSPENSION 30 ML CUP PO PRN (10:35)
[2017-06-23] MEDS ORDERED: QUEtiapine FUMARATE 400 MG TABLET PO SCH (15:14)
--- NOTE | 2017-06-23 15:17 | PN ---
Psychiatric Progress Note Vital Signs: Vital Signs Period Temp Pulse Resp BP Sys/Guerrero Pulse Ox Last 24 Hr 97.6 F 90-95 16-18 123-128/83-91 Date of Session: 06/23/17 Chief Complaint:: "insomnia" HPI: patient is addressing opioid, cocaine, cannabis, sedative, nicotine dependence comorbid bipolar and Bereavement. Current Medications: Active Medications Generic Name Dose Route Start Last Admin Trade Name Freq PRN Reason Stop Dose Admin Acetaminophen 650 mg 06/21/17 12:02 Tylenol - PO Q4H PRN FEVER Al Hydroxide/Mg Hydroxide 30 ml 06/21/17 12:02 06/22/17 17:38 Mylanta Oral Suspension - PO 30 ml Q6H PRN Administration DYSPEPSIA Albuterol Sulfate 2 puff 06/22/17 14:42 Ventolin Hfa Inhaler - IH Q4H PRN SHORT OF BREATH/WHEEZING Colloidal Oatmeal 1 applic 06/21/17 16:13 Aveeno Soap - TP DAILY PRN HYGEINE Eucalyptus/Menthol/Phenol/Sorbitol 1 each 06/21/17 12:02 Cepastat Lozenge - MM Q4H PRN SORE THROAT Guaifenesin 10 ml 06/21/17 12:02 Robitussin Dm - PO Q6H PRN COUGH Hydroxyzine Pamoate 50 mg 06/21/17 15:17 06/23/17 10:32 Vistaril - PO 50 mg Q4H PRN Administration ANXIETY Levetiracetam 500 mg 06/21/17 22:00 06/23/17 10:32 Keppra - PO 500 mg BID PRABHA Administration Lisinopril 20 mg 06/21/17 22:00 06/23/17 10:32 Prinivil PO 20 mg BID PRABHA Administration Loperamide HCl 4 mg 06/21/17 12:02 Imodium - PO Q6H PRN DIARRHEA Magnesium Citrate 300 ml 06/21/17 12:02 Citroma - PO Q48H PRN CONSTIPATION Magnesium Hydroxide 30 ml 06/21/17 12:02 06/23/17 10:35 Milk Of Magnesia - PO 30 ml DAILY PRN Administration CONSTIPATION Naproxen 375 mg 06/21/17 12:04 Naprosyn - PO BID PRN Pain. Nicotine 21 mg 06/22/17 10:00 06/23/17 10:32 Nicoderm Patch - TD 21 mg DAILY PRABHA Administration Nicotine Polacrilex 2 mg 06/21/17 12:02 Nicorette Gum - BUC Q2H PRN NICOTINE REPLACEMENT RX Multivit/Folic Acid/Iron 1 tab 06/22/17 10:00 06/23/17 10:32 Vitamins (Sjr) - PO 1 tab DAILY PRABHA Administration Pseudoephedrine/Triprolidine 1 combo 06/21/17 12:02 Actifed - PO TID PRN NASAL CONGESTION Quetiapine Fumarate 50 mg 06/22/17 10:00 06/23/17 10:32 Seroquel - PO 50 mg DAILY PRABHA Administration Quetiapine Fumarate 500 mg 06/23/17 15:14 Seroquel - PO HS PRABHA Sertraline HCl 50 mg 06/22/17 10:00 06/23/17 10:32 Zoloft - PO 50 mg DAILY PRABHA Administration Thiamine HCl 100 mg 06/21/17 22:00 06/22/17 21:33 Vitamin B1 - PO 100 mg HS PRABHA Administration Current Side Effect: No Lab tests ordered: No Lab tests reviewed: Yes Provider note:: Patient reports he is unable to sleep, having racing thoughts which keep him up, reports was on Seroquel 500 mg and requesting to increase medications, will increase Seroquel 500 mg po hs, continut to monitor progress. Total face to face time:: 15 Mental Status Exam - Mental Status Exam Alert and Oriented to: Time, Place, Person Cognitive Function: Grossly Intact Patient Appearance: Well Groomed Mood: Depressed, Sad Affect: Blunted, Constricted Patient Behavior: Cooperative Speech Pattern: Clear, Appropriate Voice Loudness: Normal Thought Process: Intact, Goal Oriented Thought Disorder: Not Present Hallucinations: Denies Suicidal Ideation: Denies Homicidal Ideation: Denies Insight/Judgement: Fair Sleep: Fair Appetite: Fair Muscle strength/Tone: Normal Gait/Station: Normal Psychiatric Treatment Plan - Problem List (1) Cannabis dependence Current Visit: Yes (2) Alcohol dependence Current Visit: Yes (3) Opioid dependence Current Visit: Yes (4) Sedative dependence Current Visit: No (5) Bipolar disorder Current Visit: No Qualifiers: Active/Remission status: remission status unspecified Qualified Code(s): F31.9 - Bipolar disorder, unspecified Comment: As per records and self-report.Non-adherent to medications and OPD care. (6) Nicotine dependence Current Visit: No Qualifiers: Nicotine product type: cigarettes Substance use status: in withdrawal Qualified Code(s): F17.213 - Nicotine dependence, cigarettes, with withdrawal (7) Bereavement Current Visit: Yes
--- NOTE | 2017-06-23 15:41 | PN ---
[facility] Progress Note Note: Patient presents with complaint of insomnia and leg discomfort, mainly at night. States pain interferes with sleep. Vital Signs Temperature 97.6 F 06/23/17 06:49 Pulse Rate 90 06/23/17 10:00 Respiratory Rate 18 06/23/17 06:49 Blood Pressure 127/83 06/23/17 10:00 O2 Sat by Pulse Oximetry (%) Obj: patient Alert and oriented x 3. In NAD. Afebrile. Ext: full ROM, no deformities or swelling A/P: insomnia muscular pain Will add Flexeril 10mg TID prn continue seroquel and vistaril as ordered continue to monitor clinically
[2017-06-23] MEDS ORDERED: QUEtiapine FUMARATE 100 MG TABLET (FP) ONE (20:30)
[2017-06-23] MEDS ORDERED: QUEtiapine FUMARATE 400 MG TABLET ONE (20:30)
[2017-06-23] MEDS: QUETIAPINE FUMARATE 400 MG, QUETIAPINE FUMARATE 100 MG PO SCH (21:19)
[2017-06-23] MEDS: THIAMINE HCL 100 MG TABLET (FP) PO SCH (21:19)
[2017-06-23] MEDS: CYCLOBENZAPRINE HCL 10 MG TABLET (FP) PO PRN (21:19)
[2017-06-24] MEDS: CYCLOBENZAPRINE HCL 10 MG TABLET (FP) PO PRN ×3 (06:33→21:21)
[2017-06-24] MEDS: hydrOXYzine PAMOATE 50 MG CAPSULE (FP) PO PRN ×3 (06:33→21:21)
[2017-06-24] MEDS: SERTRALINE HCL 50 MG TABLET (FP) PO SCH (10:01)
[2017-06-24] MEDS: QUEtiapine FUMARATE 50 MG TABLET PO SCH (10:01)
[2017-06-24] MEDS: PRENATAL VITAMINS W/ FOLIC ACID TABLET (FP) PO SCH (10:01)
[2017-06-24] MEDS: LISINOPRIL 20 MG TABLET (FP) PO SCH ×2 (10:01→21:21)
[2017-06-24] MEDS: levETIRAcetam 500 MG TABLET (FP) PO SCH ×2 (10:01→21:21)
[2017-06-24] MEDS: NICOTINE 21 MG/24 HOURS TOPICAL PATCH TD SCH (10:02)
[2017-06-24] MEDS: MAGNESIUM HYDROX 2400MG/30ML ORAL SUSPENSION 30 ML CUP PO PRN (10:04)
[2017-06-24] MEDS ORDERED: QUEtiapine FUMARATE 100 MG TABLET (FP) ONE (20:17)
[2017-06-24] MEDS ORDERED: QUEtiapine FUMARATE 400 MG TABLET ONE (20:17)
[2017-06-24] MEDS: QUETIAPINE FUMARATE 400 MG, QUETIAPINE FUMARATE 100 MG PO SCH (21:21)
[2017-06-24] MEDS: THIAMINE HCL 100 MG TABLET (FP) PO SCH (21:21)
[2017-06-25] MEDS: PRENATAL VITAMINS W/ FOLIC ACID TABLET (FP) PO SCH (10:03)
[2017-06-25] MEDS: levETIRAcetam 500 MG TABLET (FP) PO SCH ×2 (10:04→21:27)
[2017-06-25] MEDS: NICOTINE 21 MG/24 HOURS TOPICAL PATCH TD SCH (10:04)
[2017-06-25] MEDS: LISINOPRIL 20 MG TABLET (FP) PO SCH ×2 (10:04→21:26)
[2017-06-25] MEDS: SERTRALINE HCL 50 MG TABLET (FP) PO SCH (10:04)
[2017-06-25] MEDS: QUEtiapine FUMARATE 50 MG TABLET PO SCH (10:04)
[2017-06-25] MEDS: hydrOXYzine PAMOATE 50 MG CAPSULE (FP) PO PRN ×2 (10:05→21:28)
[2017-06-25] MEDS: CYCLOBENZAPRINE HCL 10 MG TABLET (FP) PO PRN ×2 (10:05→21:28)
[2017-06-25] MEDS ORDERED: QUEtiapine FUMARATE 100 MG TABLET (FP) ONE (20:20)
[2017-06-25] MEDS ORDERED: QUEtiapine FUMARATE 400 MG TABLET ONE (20:21)
[2017-06-25] MEDS: QUETIAPINE FUMARATE 400 MG, QUETIAPINE FUMARATE 100 MG PO SCH (21:26)
[2017-06-25] MEDS: THIAMINE HCL 100 MG TABLET (FP) PO SCH (21:29)
[2017-06-26] MEDS: NICOTINE 21 MG/24 HOURS TOPICAL PATCH TD SCH (09:54)
[2017-06-26] MEDS: SERTRALINE HCL 50 MG TABLET (FP) PO SCH (09:54)
[2017-06-26] MEDS: QUEtiapine FUMARATE 50 MG TABLET PO SCH (09:54)
[2017-06-26] MEDS: CYCLOBENZAPRINE HCL 10 MG TABLET (FP) PO PRN ×2 (09:54→21:24)
[2017-06-26] MEDS: levETIRAcetam 500 MG TABLET (FP) PO SCH ×2 (09:54→21:23)
[2017-06-26] MEDS: PRENATAL VITAMINS W/ FOLIC ACID TABLET (FP) PO SCH (09:54)
[2017-06-26] MEDS: LISINOPRIL 20 MG TABLET (FP) PO SCH ×2 (09:54→21:24)
[2017-06-26] MEDS: hydrOXYzine PAMOATE 50 MG CAPSULE (FP) PO PRN ×2 (09:54→21:24)
[2017-06-26] MEDS ORDERED: QUEtiapine FUMARATE 100 MG TABLET (FP) ONE (19:50)
[2017-06-26] MEDS ORDERED: QUEtiapine FUMARATE 400 MG TABLET ONE (19:51)
[2017-06-26] MEDS: QUETIAPINE FUMARATE 400 MG, QUETIAPINE FUMARATE 100 MG PO SCH (21:24)
[2017-06-26] MEDS: THIAMINE HCL 100 MG TABLET (FP) PO SCH (21:24)
[2017-06-27] MEDS: NICOTINE 21 MG/24 HOURS TOPICAL PATCH TD SCH (10:33)
[2017-06-27] MEDS: CYCLOBENZAPRINE HCL 10 MG TABLET (FP) PO PRN ×2 (10:35→21:21)
[2017-06-27] MEDS: hydrOXYzine PAMOATE 50 MG CAPSULE (FP) PO PRN ×2 (10:35→21:21)
[2017-06-27] MEDS: LISINOPRIL 20 MG TABLET (FP) PO SCH ×2 (10:35→21:21)
[2017-06-27] MEDS: SERTRALINE HCL 50 MG TABLET (FP) PO SCH (10:35)
[2017-06-27] MEDS: QUEtiapine FUMARATE 50 MG TABLET PO SCH (10:35)
[2017-06-27] MEDS: PRENATAL VITAMINS W/ FOLIC ACID TABLET (FP) PO SCH (10:35)
[2017-06-27] MEDS: levETIRAcetam 500 MG TABLET (FP) PO SCH ×2 (10:35→21:21)
[2017-06-27] MEDS ORDERED: QUEtiapine FUMARATE 100 MG TABLET (FP) ONE (20:26)
[2017-06-27] MEDS ORDERED: QUEtiapine FUMARATE 400 MG TABLET ONE (20:26)
[2017-06-27] MEDS: THIAMINE HCL 100 MG TABLET (FP) PO SCH (21:21)
[2017-06-27] MEDS: QUETIAPINE FUMARATE 400 MG, QUETIAPINE FUMARATE 100 MG PO SCH (21:21)
[2017-06-28] MEDS: PRENATAL VITAMINS W/ FOLIC ACID TABLET (FP) PO SCH (10:06)
[2017-06-28] MEDS: SERTRALINE HCL 50 MG TABLET (FP) PO SCH (10:06)
[2017-06-28] MEDS: QUEtiapine FUMARATE 50 MG TABLET PO SCH (10:06)
[2017-06-28] MEDS: LISINOPRIL 20 MG TABLET (FP) PO SCH ×2 (10:06→21:19)
[2017-06-28] MEDS: NICOTINE 21 MG/24 HOURS TOPICAL PATCH TD SCH (10:06)
[2017-06-28] MEDS: levETIRAcetam 500 MG TABLET (FP) PO SCH ×2 (10:06→21:19)
[2017-06-28] MEDS: hydrOXYzine PAMOATE 50 MG CAPSULE (FP) PO PRN ×2 (10:07→21:19)
[2017-06-28] MEDS: CYCLOBENZAPRINE HCL 10 MG TABLET (FP) PO PRN ×2 (10:07→21:19)
[2017-06-28] MEDS ORDERED: QUEtiapine FUMARATE 100 MG TABLET (FP) ONE (20:37)
[2017-06-28] MEDS ORDERED: QUEtiapine FUMARATE 400 MG TABLET ONE (20:37)
[2017-06-28] MEDS: THIAMINE HCL 100 MG TABLET (FP) PO SCH (21:19)
[2017-06-28] MEDS: QUETIAPINE FUMARATE 400 MG, QUETIAPINE FUMARATE 100 MG PO SCH (21:19)
[2017-06-29] MEDS: LISINOPRIL 20 MG TABLET (FP) PO SCH ×2 (10:09→21:20)
[2017-06-29] MEDS: SERTRALINE HCL 50 MG TABLET (FP) PO SCH (10:09)
[2017-06-29] MEDS: levETIRAcetam 500 MG TABLET (FP) PO SCH ×2 (10:09→21:20)
[2017-06-29] MEDS: QUEtiapine FUMARATE 50 MG TABLET PO SCH (10:09)
[2017-06-29] MEDS: PRENATAL VITAMINS W/ FOLIC ACID TABLET (FP) PO SCH (10:09)
[2017-06-29] MEDS: NICOTINE 21 MG/24 HOURS TOPICAL PATCH TD SCH (10:10)
[2017-06-29] MEDS: CYCLOBENZAPRINE HCL 10 MG TABLET (FP) PO PRN ×2 (10:11→21:20)
[2017-06-29] MEDS: hydrOXYzine PAMOATE 50 MG CAPSULE (FP) PO PRN ×2 (10:11→21:20)
[2017-06-29] MEDS ORDERED: QUEtiapine FUMARATE 400 MG TABLET ONE (20:35)
[2017-06-29] MEDS ORDERED: QUEtiapine FUMARATE 100 MG TABLET (FP) ONE (20:35)
[2017-06-29] MEDS: QUETIAPINE FUMARATE 400 MG, QUETIAPINE FUMARATE 100 MG PO SCH (21:20)
[2017-06-29] MEDS: THIAMINE HCL 100 MG TABLET (FP) PO SCH (21:20)
[2017-06-30] MEDS: QUEtiapine FUMARATE 50 MG TABLET PO SCH (10:09)
[2017-06-30] MEDS: hydrOXYzine PAMOATE 50 MG CAPSULE (FP) PO PRN (10:10)
[2017-06-30] MEDS: LISINOPRIL 20 MG TABLET (FP) PO SCH ×2 (10:10→21:48)
[2017-06-30] MEDS: PRENATAL VITAMINS W/ FOLIC ACID TABLET (FP) PO SCH (10:10)
[2017-06-30] MEDS: NICOTINE 21 MG/24 HOURS TOPICAL PATCH TD SCH (10:10)
[2017-06-30] MEDS: levETIRAcetam 500 MG TABLET (FP) PO SCH ×2 (10:10→21:48)
[2017-06-30] MEDS: CYCLOBENZAPRINE HCL 10 MG TABLET (FP) PO PRN (10:10)
[2017-06-30] MEDS: SERTRALINE HCL 50 MG TABLET (FP) PO SCH (10:10)
[2017-06-30] MEDS: QUETIAPINE FUMARATE 400 MG, QUETIAPINE FUMARATE 100 MG PO SCH (21:46)
[2017-06-30] MEDS: THIAMINE HCL 100 MG TABLET (FP) PO SCH (21:46)
[2017-06-30] MEDS ORDERED: QUEtiapine FUMARATE 400 MG TABLET ONE (21:47)
[2017-06-30] MEDS ORDERED: QUEtiapine FUMARATE 100 MG TABLET (FP) ONE (21:47)
[2017-07-01] MEDS: LISINOPRIL 20 MG TABLET (FP) PO SCH ×2 (09:54→21:16)
[2017-07-01] MEDS: PRENATAL VITAMINS W/ FOLIC ACID TABLET (FP) PO SCH (09:54)
[2017-07-01] MEDS: NICOTINE 21 MG/24 HOURS TOPICAL PATCH TD SCH (09:54)
[2017-07-01] MEDS: levETIRAcetam 500 MG TABLET (FP) PO SCH ×2 (09:54→21:16)
[2017-07-01] MEDS: SERTRALINE HCL 50 MG TABLET (FP) PO SCH (09:54)
[2017-07-01] MEDS: QUEtiapine FUMARATE 50 MG TABLET PO SCH (09:54)
[2017-07-01] MEDS: CYCLOBENZAPRINE HCL 10 MG TABLET (FP) PO PRN ×2 (09:56→21:16)
[2017-07-01] MEDS: hydrOXYzine PAMOATE 50 MG CAPSULE (FP) PO PRN ×2 (09:56→21:16)
[2017-07-01] MEDS ORDERED: QUEtiapine FUMARATE 400 MG TABLET ONE (20:03)
[2017-07-01] MEDS ORDERED: QUEtiapine FUMARATE 100 MG TABLET (FP) ONE (20:03)
[2017-07-01] MEDS: THIAMINE HCL 100 MG TABLET (FP) PO SCH (21:16)
[2017-07-01] MEDS: QUETIAPINE FUMARATE 400 MG, QUETIAPINE FUMARATE 100 MG PO SCH (21:16)
[2017-07-02] MEDS: levETIRAcetam 500 MG TABLET (FP) PO SCH ×2 (10:21→21:33)
[2017-07-02] MEDS: NICOTINE 21 MG/24 HOURS TOPICAL PATCH TD SCH (10:21)
[2017-07-02] MEDS: PRENATAL VITAMINS W/ FOLIC ACID TABLET (FP) PO SCH (10:21)
[2017-07-02] MEDS: SERTRALINE HCL 50 MG TABLET (FP) PO SCH (10:21)
[2017-07-02] MEDS: QUEtiapine FUMARATE 50 MG TABLET PO SCH (10:21)
[2017-07-02] MEDS: LISINOPRIL 20 MG TABLET (FP) PO SCH ×2 (10:21→21:33)
[2017-07-02] MEDS: CYCLOBENZAPRINE HCL 10 MG TABLET (FP) PO PRN ×2 (10:23→21:34)
[2017-07-02] MEDS: hydrOXYzine PAMOATE 50 MG CAPSULE (FP) PO PRN ×2 (10:23→21:34)
[2017-07-02] MEDS ORDERED: QUEtiapine FUMARATE 100 MG TABLET (FP) ONE (19:20)
[2017-07-02] MEDS ORDERED: QUEtiapine FUMARATE 400 MG TABLET ONE (19:21)
[2017-07-02] MEDS: THIAMINE HCL 100 MG TABLET (FP) PO SCH (21:33)
[2017-07-02] MEDS: QUETIAPINE FUMARATE 400 MG, QUETIAPINE FUMARATE 100 MG PO SCH (21:33)
[2017-07-03] MEDS: levETIRAcetam 500 MG TABLET (FP) PO SCH ×2 (10:27→21:13)
[2017-07-03] MEDS: NICOTINE 21 MG/24 HOURS TOPICAL PATCH TD SCH (10:27)
[2017-07-03] MEDS: PRENATAL VITAMINS W/ FOLIC ACID TABLET (FP) PO SCH (10:27)
[2017-07-03] MEDS: LISINOPRIL 20 MG TABLET (FP) PO SCH ×2 (10:27→21:13)
[2017-07-03] MEDS: QUEtiapine FUMARATE 50 MG TABLET PO SCH (10:27)
[2017-07-03] MEDS: SERTRALINE HCL 50 MG TABLET (FP) PO SCH (10:27)
[2017-07-03] MEDS: hydrOXYzine PAMOATE 50 MG CAPSULE (FP) PO PRN ×2 (10:29→21:13)
[2017-07-03] MEDS: CYCLOBENZAPRINE HCL 10 MG TABLET (FP) PO PRN ×2 (10:29→21:13)
[2017-07-03] MEDS ORDERED: QUEtiapine FUMARATE 400 MG TABLET ONE (20:22)
[2017-07-03] MEDS ORDERED: QUEtiapine FUMARATE 100 MG TABLET (FP) ONE (20:22)
[2017-07-03] MEDS: THIAMINE HCL 100 MG TABLET (FP) PO SCH (21:13)
[2017-07-03] MEDS: QUETIAPINE FUMARATE 400 MG, QUETIAPINE FUMARATE 100 MG PO SCH (21:13)
[2017-07-04] MEDS: LISINOPRIL 20 MG TABLET (FP) PO SCH ×2 (10:06→21:34)
[2017-07-04] MEDS: PRENATAL VITAMINS W/ FOLIC ACID TABLET (FP) PO SCH (10:06)
[2017-07-04] MEDS: NICOTINE 21 MG/24 HOURS TOPICAL PATCH TD SCH (10:06)
[2017-07-04] MEDS: levETIRAcetam 500 MG TABLET (FP) PO SCH ×2 (10:06→21:34)
[2017-07-04] MEDS: SERTRALINE HCL 50 MG TABLET (FP) PO SCH (10:06)
[2017-07-04] MEDS: QUEtiapine FUMARATE 50 MG TABLET PO SCH (10:06)
[2017-07-04] MEDS: CYCLOBENZAPRINE HCL 10 MG TABLET (FP) PO PRN ×2 (10:08→21:33)
[2017-07-04] MEDS: hydrOXYzine PAMOATE 50 MG CAPSULE (FP) PO PRN ×2 (10:08→21:34)
[2017-07-04] MEDS ORDERED: QUEtiapine FUMARATE 100 MG TABLET (FP) ONE (19:57)
[2017-07-04] MEDS ORDERED: QUEtiapine FUMARATE 400 MG TABLET ONE (19:58)
[2017-07-04] MEDS: QUETIAPINE FUMARATE 400 MG, QUETIAPINE FUMARATE 100 MG PO SCH (21:34)
[2017-07-04] MEDS: THIAMINE HCL 100 MG TABLET (FP) PO SCH (21:34)
[2017-07-05] MEDS: QUEtiapine FUMARATE 50 MG TABLET PO SCH (10:03)
[2017-07-05] MEDS: hydrOXYzine PAMOATE 50 MG CAPSULE (FP) PO PRN ×2 (10:03→21:16)
[2017-07-05] MEDS: NICOTINE 21 MG/24 HOURS TOPICAL PATCH TD SCH (10:03)
[2017-07-05] MEDS: PRENATAL VITAMINS W/ FOLIC ACID TABLET (FP) PO SCH (10:03)
[2017-07-05] MEDS: SERTRALINE HCL 50 MG TABLET (FP) PO SCH (10:03)
[2017-07-05] MEDS: levETIRAcetam 500 MG TABLET (FP) PO SCH ×2 (10:03→21:16)
[2017-07-05] MEDS: CYCLOBENZAPRINE HCL 10 MG TABLET (FP) PO PRN ×2 (10:03→21:16)
[2017-07-05] MEDS: LISINOPRIL 20 MG TABLET (FP) PO SCH ×2 (10:03→21:16)
[2017-07-05] MEDS ORDERED: QUEtiapine FUMARATE 400 MG TABLET ONE (20:24)
[2017-07-05] MEDS ORDERED: QUEtiapine FUMARATE 100 MG TABLET (FP) ONE (20:24)
[2017-07-05] MEDS: QUETIAPINE FUMARATE 400 MG, QUETIAPINE FUMARATE 100 MG PO SCH (21:16)
[2017-07-05] MEDS: THIAMINE HCL 100 MG TABLET (FP) PO SCH (21:16)
[2017-07-06 07:01] VITALS: TEMP 97.7
[2017-07-06] MEDS: QUEtiapine FUMARATE 50 MG TABLET PO SCH (10:13)
[2017-07-06] MEDS: NICOTINE 21 MG/24 HOURS TOPICAL PATCH TD SCH (10:13)
[2017-07-06] MEDS: CYCLOBENZAPRINE HCL 10 MG TABLET (FP) PO PRN ×2 (10:13→21:25)
[2017-07-06] MEDS: SERTRALINE HCL 50 MG TABLET (FP) PO SCH (10:13)
[2017-07-06] MEDS: LISINOPRIL 20 MG TABLET (FP) PO SCH ×2 (10:13→21:24)
[2017-07-06] MEDS: hydrOXYzine PAMOATE 50 MG CAPSULE (FP) PO PRN ×2 (10:13→21:25)
[2017-07-06] MEDS: PRENATAL VITAMINS W/ FOLIC ACID TABLET (FP) PO SCH (10:13)
[2017-07-06] MEDS: levETIRAcetam 500 MG TABLET (FP) PO SCH ×2 (10:13→21:24)
[2017-07-06] MEDS ORDERED: QUEtiapine FUMARATE 400 MG TABLET ONE (19:52)
[2017-07-06] MEDS ORDERED: QUEtiapine FUMARATE 100 MG TABLET (FP) ONE (19:52)
[2017-07-06] MEDS: THIAMINE HCL 100 MG TABLET (FP) PO SCH (21:24)
[2017-07-06] MEDS: QUETIAPINE FUMARATE 400 MG, QUETIAPINE FUMARATE 100 MG PO SCH (21:24)
[2017-07-06 22:22] VITALS: BP 124/81; PULSE 90
--- NOTE | 2017-07-07 10:13 | PN ---
Psychiatric Progress Note Vital Signs: Vital Signs Period Temp Pulse Resp BP Sys/Guerrero Pulse Ox Last 24 Hr 90-91 16-18 122-124/74-81 Date of Session: 07/07/17 Chief Complaint:: discharge visit HPI: Patient has addresed opioid, cocaine, cannabis, sedative, nicotine dependence comorbid bipolar and Bereavement. ROS: WNL Current Medications: Active Medications Generic Name Dose Route Start Last Admin Trade Name Freq PRN Reason Stop Dose Admin Acetaminophen 650 mg 06/21/17 12:02 Tylenol - PO Q4H PRN FEVER Al Hydroxide/Mg Hydroxide 30 ml 06/21/17 12:02 06/22/17 17:38 Mylanta Oral Suspension - PO 30 ml Q6H PRN Administration DYSPEPSIA Albuterol Sulfate 2 puff 06/22/17 14:42 Ventolin Hfa Inhaler - IH Q4H PRN SHORT OF BREATH/WHEEZING Colloidal Oatmeal 1 applic 06/21/17 16:13 Aveeno Soap - TP DAILY PRN HYGEINE Cyclobenzaprine HCl 10 mg 06/23/17 15:36 07/06/17 21:25 Flexeril - PO 10 mg TID PRN Administration MUSCLE SPASMS Eucalyptus/Menthol/Phenol/Sorbitol 1 each 06/21/17 12:02 Cepastat Lozenge - MM Q4H PRN SORE THROAT Guaifenesin 10 ml 06/21/17 12:02 Robitussin Dm - PO Q6H PRN COUGH Hydroxyzine Pamoate 50 mg 06/21/17 15:17 07/06/17 21:25 Vistaril - PO 50 mg Q4H PRN Administration ANXIETY Levetiracetam 500 mg 06/21/17 22:00 07/06/17 21:24 Keppra - PO 500 mg BID PRABHA Administration Lisinopril 20 mg 06/21/17 22:00 07/06/17 21:24 Prinivil PO 20 mg BID PRABHA Administration Loperamide HCl 4 mg 06/21/17 12:02 Imodium - PO Q6H PRN DIARRHEA Magnesium Citrate 300 ml 06/21/17 12:02 Citroma - PO Q48H PRN CONSTIPATION Magnesium Hydroxide 30 ml 06/21/17 12:02 06/24/17 10:04 Milk Of Magnesia - PO 30 ml DAILY PRN Administration CONSTIPATION Naproxen 375 mg 06/21/17 12:04 Naprosyn - PO BID PRN Pain. Nicotine 21 mg 06/22/17 10:00 07/06/17 10:13 Nicoderm Patch - TD 21 mg DAILY PRABHA Administration Nicotine Polacrilex 2 mg 06/21/17 12:02 Nicorette Gum - BUC Q2H PRN NICOTINE REPLACEMENT RX Multivit/Folic Acid/Iron 1 tab 06/22/17 10:00 07/06/17 10:13 Vitamins (Sjr) - PO 1 tab DAILY PRABHA Administration Pseudoephedrine/Triprolidine 1 combo 06/21/17 12:02 Actifed - PO TID PRN NASAL CONGESTION Quetiapine Fumarate 50 mg 06/22/17 10:00 07/06/17 10:13 Seroquel - PO 50 mg DAILY PRABHA Administration Quetiapine Fumarate 400 mg/ 500 mg 06/23/17 22:00 07/06/17 21:24 Quetiapine Fumarate 100 mg PO 500 mg HS PRABHA Administration Sertraline HCl 50 mg 06/22/17 10:00 07/06/17 10:13 Zoloft - PO 50 mg DAILY PRABHA Administration Thiamine HCl 100 mg 06/21/17 22:00 07/06/17 21:24 Vitamin B1 - PO 100 mg HS PRABHA Administration Current Side Effect: No Lab tests ordered: No Lab tests reviewed: Yes Provider note:: Patient has completed today his treatment and met his goals, will contineu to address his issues at [facility] in [facility] rehabilitation treatment program. Patient gained insights into his addiction , he verbalized that without this level of care and motivated to continue maintain abstinence. PAtient was encouraged to utilize all supports available to prevent relapses, Seroquel well tolerated, patient reports he feels well, no mood swings, mood is stable, scripts for 30 days supply provided, patient is stable for discharge, MSE completed. Total face to face time:: 35 Mental Status Exam - Mental Status Exam Alert and Oriented to: Time, Place, Person Cognitive Function: Good Patient Appearance: Well Groomed Mood: Hopeful Affect: Appropriate, Mood Congruent Patient Behavior: Appropriate, Cooperative Speech Pattern: Clear, Appropriate Voice Loudness: Normal Thought Process: Intact, Goal Oriented Thought Disorder: Not Present Hallucinations: Denies Suicidal Ideation: Denies Homicidal Ideation: Denies Insight/Judgement: Fair Sleep: Fair Appetite: Fair Muscle strength/Tone: Normal Gait/Station: Normal Psychiatric Treatment Plan - Problem List (1) Cannabis dependence Current Visit: Yes (2) Alcohol dependence Current Visit: Yes (3) Opioid dependence Current Visit: Yes (4) Sedative dependence Current Visit: No (5) Bipolar disorder Current Visit: No Qualifiers: Active/Remission status: remission status unspecified Qualified Code(s): F31.9 - Bipolar disorder, unspecified Comment: As per records and self-report.Non-adherent to medications and OPD care. (6) Nicotine dependence Current Visit: No Qualifiers: Nicotine product type: cigarettes Substance use status: in withdrawal Qualified Code(s): F17.213 - Nicotine dependence, cigarettes, with withdrawal (7) Bereavement Current Visit: Yes
[2017-07-07] MEDS: NICOTINE 21 MG/24 HOURS TOPICAL PATCH TD SCH (11:19)
[2017-07-07] MEDS: levETIRAcetam 500 MG TABLET (FP) PO SCH (11:19)
[2017-07-07] MEDS: QUEtiapine FUMARATE 50 MG TABLET PO SCH (11:20)
[2017-07-07] MEDS: PRENATAL VITAMINS W/ FOLIC ACID TABLET (FP) PO SCH (11:20)
[2017-07-07] MEDS: SERTRALINE HCL 50 MG TABLET (FP) PO SCH (11:20)
[2017-07-07] MEDS: LISINOPRIL 20 MG TABLET (FP) PO SCH (11:20)
== END 2017-07-07 11:20 | disposition home or self-care (01) | DRG 772 ==
LOC: YASAS 14:36 → Y5N 14:37
PROVIDERS: ADMIT Psychiatry & Neurology Psychiatry; ATTEND Psychiatry & Neurology Psychiatry
PROC: HZ42ZZZ Group Counseling for Substance Abuse Treatment, Cognitive-Behavioral (ICD-10-PCS; principal; 2017-06-21)
DX: F11.20 Opioid dependence, uncomplicated (principal); F13.20 Sedative, hypnotic or anxiolytic dependence, uncomplicated; F10.20 Alcohol dependence, uncomplicated; F12.20 Cannabis dependence, uncomplicated; F31.9 Bipolar disorder, unspecified; G47.00 Insomnia, unspecified; Z63.4 Disappearance and death of family member

== ENCOUNTER 2017-11-17 11:17 | Inpatient (IN) | payer OTHER ==
[2017-11-17 12:19] VITALS: BMI 34.7
--- NOTE | 2017-11-17 14:01 | HP ---
CIWA Score - CIWA Score Nausea/Vomitin Muscle Tremors: 3 Anxiety: 3 Agitation: 3 Paroxysmal Sweats: 1-Minimal Palms Moist Orientation: 0-Oriented Tacttile Disturbances: 1-Very Mild Itch/Numbness Auditory Disturbances: 1-Very Mild Visual Disturbances: 0-None Headache: 2-Mild CIWA-Ar Total Score: 17 Admission ROS BHS - HPI Chief Complaint: i need help to stop drinking alcohol Allergies/Adverse Reactions: Allergies Allergy/AdvReac Type Severity Reaction Status Date / Time No Known Drug Allergies Allergy Verified 11/17/17 13:41 shellfish derived AdvReac Severe Verified 11/17/17 13:41 tomato AdvReac Severe Verified 11/17/17 13:41 NO VEGETABLES Allergy Uncoded 11/17/17 13:41 History of Present Illness: this 32 years old male with alcohol dependence,also marijuana dependence, seeking detox,withdrawal symptom last treatment [facility] 06/17/17 to 06/21/17 detox rehab 06/21/17 to 07/07/17 seizure last 2016 history of pancreatitis type 2 dm non complaince nicotine dependence multiple admissions but keep relapsing Exam Limitations: No Limitations - Ebola screening Have you traveled outside of the country in the last 21 days: No Have you had contact with anyone from an Ebola affected area: No Have you been sick,other than usual withdrawal symptoms: No Do you have a fever: No - Review of Systems Constitutional: Chills, Loss of Appetite, Malaise, Night Sweats, Changes in sleep, Weakness EENT: reports: Nose Congestion Respiratory: reports: No Symptoms reported Cardiac: reports: No Symptoms Reported GI: reports: Diarrhea, Nausea, Vomiting, Abdominal cramping : reports: No Symptoms Reported Musculoskeletal: reports: Back Pain, Muscle Pain Integumentary: reports: Dryness Neuro: reports: Headache, Tremors Endocrine: reports: No Symptoms Reported Hematology: reports: No Symptoms Reported Psychiatric: reports: Judgement Intact, Mood/Affect Appropiate, Orientated x3, Anxious, Depressed (ptsd) Patient History - Patient Medical History Hx Anemia: No Hx Asthma: Yes Hx Chronic Obstructive Pulmonary Disease (COPD): No Hx Cancer: No Hx Cardiac Disorders: No Hx Congestive Heart Failure: No Hx Hypertension: Yes (on no medication) Hx Hypercholesterolemia: Yes (hx in the past , taking medciation ) Hx Pacemaker: No HX Cerebrovascular Accident: No Hx Seizures: Yes (last 05/22) Hx Dementia: No Hx Diabetes: No Hx Gastrointestinal Disorders: No Hx Liver Disease: No Hx Genitourinary Disorders: No Hx Sexually Transmitted Disorders: No Hx Renal Disease (ESRD): No Hx Thyroid Disease: No Hx Human Immunodeficiency Virus (HIV): No (06/19 negative) Hx Hepatitis C: No Hx Depression: Yes Hx Suicide Attempt: No Hx Bipolar Disorder: Yes (no med) Hx Schizophrenia: No Other Medical History: no suicidal,no homicidal - Patient Surgical History Past Surgical History: Yes Hx Neurologic Surgery: No Hx Cataract Extraction: No Hx Cardiac Surgery: No Hx Lung Surgery: No Hx Breast Surgery: No Hx Breast Biopsy: No Hx Abdominal Surgery: No Hx Appendectomy: No Hx Cholecystectomy: No Hx Genitourinary Surgery: No Hx Section: No Hx Orthopedic Surgery: No Other Surgical History: abcess removals left side head Anesthesia Reaction: No - PPD History Previous Implant?: Yes Documented Results: Negative w/proof Date: 04/02/17 Results: 0 mm. PPD to be Administered?: No - Smoking Cessation Smoking history: Current every day smoker Have you smoked in the past 12 months: Yes Aproximately how many cigarettes per day: 20 Cigars Per Day: 0 Hx Chewing Tobacco Use: No Initiated information on smoking cessation: Yes 'Breaking Loose' booklet given: 11/17/17 - Substance & Tx. History Hx Alcohol Use: Yes Hx Substance Use: Yes Substance Use Type: Alcohol, Marijuana Hx Substance Use Treatment: Yes ([facility] 06/17/17 to 06/21/17 rehab 06/21/17 to 08/19) - Substances Abused Alcohol Route: Oral Frequency: Daily Amount used: 2 LITERS VODKA Age of first use: 14 Date of Last Use: 11/17/17 Marijuana/Hashish Route: Smoking Frequency: Daily Amount used: 1/4 OF AN OUNCE Age of first use: 12 Date of Last Use: 11/17/17 Family Disease History - Family Disease History Family Disease History: Diabetes: Father (heroin dependence ), Mother, Brother, Heart Disease: Brother, CA: Grandparent, Respiratory: Grandparent, Father, Other : Father, Sister (NO SISTER) Admission Physical Exam BHS - Vital Signs Vital Signs: Vital Signs - 24 hr 11/17/17 12:15 Temperature 98.7 F Pulse Rate 96 H Respiratory 18 Rate Blood Pressure 136/89 - Physical General Appearance: Yes: Moderate Distress, Tremorous, Irritable, Sweating, Anxious HEENTM: Yes: Normal ENT Inspection, TRICIA, Pharynx Normal Respiratory: Yes: Lungs Clear, Normal Breath Sounds, No Respiratory Distress Neck: Yes: Within Normal Limits, Supple, Trachea in good position Breast: Yes: Within Normal Limits Cardiology: Yes: Within Normal Limits, Regular Rhythm, Regular Rate, S1, S2 Abdominal: Yes: Within Normal Limits, Normal Bowel Sounds, Non Tender, Soft Genitourinary: Yes: Within Normal Limits Back: Yes: Muscle Spasm Musculoskeletal: Yes: full range of Motion, Back pain, Muscle Pain Extremities: Yes: Within Normal Limits, Normal Range of Motion, Tremors Neurological: Yes: digital research analyst II-XII NML intact, Alert, Motor Strength 5/5 Integumentary: Yes: Dry Lymphatic: Yes: Within Normal Limits - Diagnostic (1) Alcohol dependence with uncomplicated withdrawal Current Visit: No Status: Acute (2) Anxiety and depression Current Visit: Yes Status: Acute (3) Asthma Current Visit: No Status: Chronic Qualifiers: Asthma severity: mild Asthma persistence: intermittent Asthma complication type: with status asthmaticus Qualified Code(s): J45.22 - Mild intermittent asthma with status asthmaticus (4) Cannabis dependence Current Visit: No Status: Chronic (5) GERD (gastroesophageal reflux disease) Current Visit: No Status: Chronic Qualifiers: Esophagitis presence: without esophagitis Qualified Code(s): K21.9 - Gastro -esophageal reflux disease without esophagitis (6) Nicotine dependence Current Visit: No Status: Chronic Qualifiers: Nicotine product type: cigarettes Substance use status: in withdrawal Qualified Code(s): F17.213 - Nicotine dependence, cigarettes, with withdrawal (7) Seizure disorder Current Visit: No Status: Chronic Comment: SINCE 2009 LAST EPISODE 2014 KELINDA (8) History of pancreatitis Current Visit: Yes Status: Acute Cleared for Admission S - Detox or Rehab [facility] Level of Care: Medically Managed Detox Regimen/Protocol: Librium [facility] Breath Alcohol Content Breath Alcohol Content: 0.032 Urine Drug Screen - Results Drug Screen Negative: No Urine Drug Screen Results: THC-Marijuana, MET-Methamphetamine, BZO- Benzodiazepines, TCA-Tricyclic Antidepress
[2017-11-17] MEDS ORDERED: hydrOXYzine PAMOATE 50 MG CAPSULE (FP) PO PRN (14:19)
[2017-11-17] MEDS ORDERED: guaiFENesin/D-METHORPHAN HB 10 ML UNIT-DOSE CUPS PO PRN (14:19)
[2017-11-17] MEDS ORDERED: LOPERAMIDE HCL 2 MG CAPSULE PO PRN (14:19)
[2017-11-17] MEDS ORDERED: ACETAMINOPHEN 325 MG TABLET (FP) PO PRN (14:19)
[2017-11-17] MEDS ORDERED: P-EPHED 60MG/TRIPROLIDI 2.5MG TABLET PO PRN (14:19)
[2017-11-17] MEDS ORDERED: MAG HYDROX/AL HYDROX/SIMETH 30 ML UNIT-DOSE CUP PO PRN (14:19)
[2017-11-17] MEDS ORDERED: MAGNESIUM HYDROX 2400MG/30ML ORAL SUSPENSION 30 ML CUP PO PRN (14:19)
[2017-11-17] MEDS ORDERED: MAGNESIUM CITRATE 300 ML BOTTLE PO PRN (14:19)
[2017-11-17] MEDS ORDERED: chlordiazePOXIDE HCL 25 MG CAPSULE PO PRN (14:19)
[2017-11-17] MEDS ORDERED: MENTHOL/PHENOL 1 EACH UD MM PRN (14:19)
[2017-11-17] MEDS ORDERED: ALBUTEROL SO4 8 GM HFA INHALER IH PRN (14:22)
[2017-11-17] MEDS ORDERED: metFORMIN HCL 500 MG TABLET (FP) PO SCH (16:30)
[2017-11-17] MEDS: chlordiazePOXIDE HCL 25 MG CAPSULE PO SCH ×2 (17:02→22:20)
[2017-11-17] MEDS: NICOTINE 21 MG/24 HOURS TOPICAL PATCH TD SCH (17:02)
[2017-11-17] MEDS: LIPASE/PROTEASE/AMYLASE 6,000 UNIT CAPSULE PO SCH (17:19)
[2017-11-17] MEDS ORDERED: PATIENT'S OWN MEDICATION (NON-FORMULARY) (Lipase/Protease/Amylase [Creon Dr 3,000 Units Ca PO SCH (22:00)
[2017-11-17] MEDS ORDERED: PATIENT'S OWN MEDICATION (NON-FORMULARY) (Fenofibrate Nanocrystallized [Fenofibrate] 145 M PO SCH (22:00)
[2017-11-17] MEDS: THIAMINE HCL 100 MG TABLET (FP) PO SCH (22:20)
[2017-11-17] MEDS: levETIRAcetam 500 MG TABLET (FP) PO SCH (22:20)
[2017-11-17] MEDS: MELATONIN 5 MG TABLETS PO PRN (22:21)
[2017-11-18] MEDS: chlordiazePOXIDE HCL 25 MG CAPSULE PO SCH ×4 (06:01→22:29)
[2017-11-18] MEDS: LIPASE/PROTEASE/AMYLASE 6,000 UNIT CAPSULE PO SCH ×3 (08:50→17:36)
[2017-11-18] MEDS ORDERED: ONDANSETRON *ODT* 4 MG TABLET SL PRN (09:20)
[2017-11-18 10:25] LABS: URINE APPEARANCE TURBID; URINE BILIRUBIN NEGATIVE (<2.0 mg/dL); URINE COLOR YELLOW; URINE GLUCOSE (UA) NEGATIVE (NEGATIVE); URINE KETONE NEGATIVE (NEGATIVE); URINE LEUK ESTERASE NEGATIVE (NEGATIVE); URINE NITRITE NEGATIVE (NEGATIVE); URINE UROBILINOGEN NEGATIVE mg/dL (0.2-1.0)
[2017-11-18 10:30] LABS: HEMATOCRIT 41.6 % (35.4-49); HEMOGLOBIN 14.2 GM/dL (11.7-16.9); MCH 28.7 pg (25.7-33.7); MCHC 34.1 g/dl (32.0-35.9); MEAN CELL VOLUME 84.4 fl (80-96); MEAN PLT VOLUME 9.2 fl (7.5-11.1); PLATELET COUNT 283 K/MM3 (134-434); RBC 4.94 M/mm3 (4.00-5.60); RDW 14.9 % (11.9-15.9); WHITE BLOOD COUNT 7.3 K/mm3 (4.0-10.0)
[2017-11-18 10:44] LABS: URINE PROTEIN 1+ (NEGATIVE)
[2017-11-18 10:48] LABS: ALBUMIN 4.6 g/dl (3.4-5.0); ANION GAP 11 (8-16); BLOOD UREA NITROGEN 13 mg/dL (7-18); CALCIUM 9.7 mg/dL (8.5-10.1); CHLORIDE 105 mmol/L (98-107); CO2 23 mmol/L (21-32); GLUCOSE,RANDOM 101 mg/dL (74-106); POTASSIUM 4.2 mmol/L (3.5-5.1); SODIUM 139 mmol/L (136-145)
[2017-11-18 10:51] LABS: ALK PHOS 54 U/L (45-117); BILIRUBIN,TOTAL 0.3 mg/dL (0.2-1.0); CREATININE 1.4 mg/dL (0.7-1.3); SGOT/AST 40 U/L (15-37); SGPT/ALT 47 U/L (12-78); TOT PROT 8.7 g/dl (6.4-8.2)
[2017-11-18 11:05] LABS: URINE BACTERIA MANY /hpf (NONE SEEN); YEAST MANY
--- NOTE | 2017-11-18 11:16 | EKG ---
Test Reason : Blood Pressure : / mmHG Vent. Rate : 087 BPM Atrial Rate : 087 BPM P-R Int : 164 ms QRS Dur : 094 ms QT Int : 376 ms P-R-T Axes : 048 014 047 degrees QTc Int : 452 ms NORMAL SINUS RHYTHM NORMAL ECG WHEN COMPARED WITH ECG OF 17-JUN-2017 16:53, NO SIGNIFICANT CHANGE WAS FOUND Confirmed by DAREK JARAMILLO MD ([id number]) on 11/18/2017 11:15:59 AM Referred By: Confirmed By:DAREK JARAMILLO MD
[2017-11-18] MEDS: levETIRAcetam 500 MG TABLET (FP) PO SCH ×2 (11:51→22:29)
[2017-11-18] MEDS: PRENATAL VITAMINS W/ FOLIC ACID TABLET (FP) PO SCH (11:51)
[2017-11-18] MEDS: PANTOPRAZOLE 40 MG TABLET (FP) PO SCH (11:52)
[2017-11-18] MEDS: LISINOPRIL 20 MG TABLET (FP) PO SCH (11:52)
[2017-11-18] MEDS: FENOFIBRIC ACID 135 MG CAP PO SCH (11:53)
--- NOTE | 2017-11-18 11:57 | PN ---
S CIWA - CIWA Score Nausea/Vomitin Muscle Tremors: 4-Moderate,w/Arms Extend Anxiety: 4-Mod. Anxious/Guarded Agitation: 4-Moderately Restless Paroxysmal Sweats: 1-Minimal Palms Moist Orientation: 0-Oriented Tacttile Disturbances: 3-Moderate Itch/Numb/Burn Auditory Disturbances: 0-None Visual Disturbances: 0-None Headache: 0-None Present CIWA-Ar Total Score: 21 BHS Progress Note (SOAP) Subjective: ANXIETY, SWEATS,TREMORS,RESTLESSNESS,TIREDNESS,NAUSEA/VOMITING,INTERMITTENT SLEEP. Objective: 11/18/17 12:04 Vital Signs 11/18/17 11/18/17 11/18/17 06:25 06:30 10:03 Temperature 96.8 F L 96.7 F L Pulse Rate 78 71 Respiratory 18 18 18 Rate Blood Pressure 116/75 125/78 Laboratory Tests 11/17/17 11/18/17 11/18/17 14:01 05:50 05:50 WBC 7.3 RBC 4.94 Hgb 14.2 Hct 41.6 MCV 84.4 MCH 28.7 MCHC 34.1 RDW 14.9 D Plt Count 283 D MPV 9.2 D Sodium 139 Potassium 4.2 Chloride 105 Carbon Dioxide 23 D Anion Gap 11 BUN 13 Creatinine 1.4 H Creat Clearance w eGFR 58.01 POC Glucometer 102 Random Glucose 101 Calcium 9.7 Total Bilirubin 0.3 AST 40 H ALT 47 D Alkaline Phosphatase 54 Total Protein 8.7 H Albumin 4.6 Urine Color Urine Appearance Urine pH Ur Specific [place] Urine Protein Urine Glucose (UA) Urine Ketones Urine Blood Urine Nitrite Urine Bilirubin Urine Urobilinogen Ur Leukocyte Esterase Urine WBC (Auto) Urine RBC (Auto) Urine Bacteria Urine Yeast 11/18/17 11/18/17 06:18 07:00 WBC RBC Hgb Hct MCV MCH MCHC RDW Plt Count MPV Sodium Potassium Chloride Carbon Dioxide Anion Gap BUN Creatinine Creat Clearance w eGFR POC Glucometer 104 Random Glucose Calcium Total Bilirubin AST ALT Alkaline Phosphatase Total Protein Albumin Urine Color Yellow Urine Appearance Turbid Urine pH 5.0 Ur Specific [place] 1.023 Urine Protein 1+ H Urine Glucose (UA) Negative Urine Ketones Negative Urine Blood Negative Urine Nitrite Negative Urine Bilirubin Negative Urine Urobilinogen Negative Ur Leukocyte Esterase Negative Urine WBC (Auto) None Urine RBC (Auto) None Urine Bacteria Many Urine Yeast Many Assessment: 11/18/17 12:04 WITHDRAWAL SX Plan: CONTINUE DETO ZOFRAN DIRECTED
[2017-11-18] MEDS: NICOTINE 21 MG/24 HOURS TOPICAL PATCH TD SCH (11:59)
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
[2017-11-18] MEDS: IBUPROFEN 400 MG TABLET (FP) PO PRN (14:02)
[2017-11-18] MEDS ORDERED: COLLOIDAL OATMEAL 1 BAR EACH TP PRN (17:49)
[2017-11-18] MEDS ORDERED: QUEtiapine FUMARATE 200 MG TABLET PO SCH (22:00)
[2017-11-18] MEDS: THIAMINE HCL 100 MG TABLET (FP) PO SCH (22:29)
[2017-11-18] MEDS: MELATONIN 5 MG TABLETS PO PRN (22:31)
[2017-11-19] MEDS: chlordiazePOXIDE HCL 25 MG CAPSULE PO SCH ×2 (06:17→10:40)
[2017-11-19] MEDS: PANTOPRAZOLE 40 MG TABLET (FP) PO SCH (10:40)
[2017-11-19] MEDS: levETIRAcetam 500 MG TABLET (FP) PO SCH ×2 (10:40→22:21)
[2017-11-19] MEDS: PRENATAL VITAMINS W/ FOLIC ACID TABLET (FP) PO SCH (10:40)
[2017-11-19] MEDS: ESCITALOPRAM OXALATE 10 MG TABLET (FP) PO SCH (10:40)
[2017-11-19] MEDS: LIPASE/PROTEASE/AMYLASE 6,000 UNIT CAPSULE PO SCH ×3 (10:40→17:30)
[2017-11-19] MEDS: LISINOPRIL 20 MG TABLET (FP) PO SCH (10:41)
[2017-11-19] MEDS: NICOTINE 21 MG/24 HOURS TOPICAL PATCH TD SCH (10:41)
[2017-11-19] MEDS: FENOFIBRIC ACID 135 MG CAP PO SCH (10:41)
[2017-11-19] MEDS: chlordiazePOXIDE 5 MG CAPSULE PO SCH ×2 (16:11→22:21)
[2017-11-19] MEDS: IBUPROFEN 400 MG TABLET (FP) PO PRN (16:12)
--- NOTE | 2017-11-19 19:42 | PN ---
S CIWA - CIWA Score Nausea/Vomitin-No Nausea/No Vomiting Muscle Tremors: 3 Anxiety: 4-Mod. Anxious/Guarded Agitation: 4-Moderately Restless Paroxysmal Sweats: 2 Orientation: 2-Disoriented Date<2 days Tacttile Disturbances: 0-None Auditory Disturbances: 0-None Visual Disturbances: 0-None Headache: 3-Moderate CIWA-Ar Total Score: 18 BHS Progress Note (SOAP) Subjective: Sweating, H/A, Body Aches, Anxious, Tremors, Interrupted Sleep. Objective: PATIENT A & O X 2 (UNCERTAIN ABOUT CURRENT DAY / DATE). PATIENT OBSERVED AMBULATING ON UNIT. NO ACUTE DISTRESS. 11/19/17 19:39 Vital Signs Temperature 96.8 F L 11/19/17 14:05 Pulse Rate 93 H 11/19/17 14:05 Respiratory Rate 19 11/19/17 14:05 Blood Pressure 113/87 11/19/17 14:05 O2 Sat by Pulse Oximetry (%) Laboratory Tests 11/17/17 11/18/17 11/18/17 14:01 05:50 05:50 WBC 7.3 RBC 4.94 Hgb 14.2 Hct 41.6 MCV 84.4 MCH 28.7 MCHC 34.1 RDW 14.9 D Plt Count 283 D MPV 9.2 D Sodium 139 Potassium 4.2 Chloride 105 Carbon Dioxide 23 D Anion Gap 11 BUN 13 Creatinine 1.4 H Creat Clearance w eGFR 58.01 POC Glucometer 102 Random Glucose 101 Calcium 9.7 Total Bilirubin 0.3 AST 40 H ALT 47 D Alkaline Phosphatase 54 Total Protein 8.7 H Albumin 4.6 Urine Color Urine Appearance Urine pH Ur Specific [place] Urine Protein Urine Glucose (UA) Urine Ketones Urine Blood Urine Nitrite Urine Bilirubin Urine Urobilinogen Ur Leukocyte Esterase Urine WBC (Auto) Urine RBC (Auto) Urine Bacteria Urine Yeast RPR Titer 11/18/17 11/18/17 11/18/17 05:50 06:18 07:00 WBC RBC Hgb Hct MCV MCH MCHC RDW Plt Count MPV Sodium Potassium Chloride Carbon Dioxide Anion Gap BUN Creatinine Creat Clearance w eGFR POC Glucometer 104 Random Glucose Calcium Total Bilirubin AST ALT Alkaline Phosphatase Total Protein Albumin Urine Color Yellow Urine Appearance Turbid Urine pH 5.0 Ur Specific [place] 1.023 Urine Protein 1+ H Urine Glucose (UA) Negative Urine Ketones Negative Urine Blood Negative Urine Nitrite Negative Urine Bilirubin Negative Urine Urobilinogen Negative Ur Leukocyte Esterase Negative Urine WBC (Auto) None Urine RBC (Auto) None Urine Bacteria Many Urine Yeast Many RPR Titer Nonreactive 11/19/17 16:19 WBC RBC Hgb Hct MCV MCH MCHC RDW Plt Count MPV Sodium Potassium Chloride Carbon Dioxide Anion Gap BUN Creatinine Creat Clearance w eGFR POC Glucometer 151 Random Glucose Calcium Total Bilirubin AST ALT Alkaline Phosphatase Total Protein Albumin Urine Color Urine Appearance Urine pH Ur Specific [place] Urine Protein Urine Glucose (UA) Urine Ketones Urine Blood Urine Nitrite Urine Bilirubin Urine Urobilinogen Ur Leukocyte Esterase Urine WBC (Auto) Urine RBC (Auto) Urine Bacteria Urine Yeast RPR Titer LABS NOTED. Assessment: 11/19/17 19:40 WITHDRAWAL SYMPTOMS. Plan: CONTINUE DETOX. INCREASE DAILY PO FLUID INTAKE.
--- NOTE | 2017-11-19 21:35 | PN ---
Donna Progress Note Note: Psychiatry Attending's note : Approached by patient earlier today. Issue : titration of seroquel. Mr Flaherty shows no evidence of sedation. Ambulatory.Steady gait.Complains of insomnia. Reports zolpidem as not effective in the past. Seroquel is raised to 300 mg po hs + 100 mg po daily. Patient is in agreement with this plan of care.Will follow.
[2017-11-19] MEDS: THIAMINE HCL 100 MG TABLET (FP) PO SCH (22:21)
[2017-11-19] MEDS: QUEtiapine FUMARATE 300 MG TABLET PO SCH (22:24)
[2017-11-20] MEDS: chlordiazePOXIDE 5 MG CAPSULE PO SCH ×2 (06:16→10:23)
[2017-11-20] MEDS ORDERED: QUEtiapine FUMARATE 100 MG TABLET (FP) PO SCH (10:00)
[2017-11-20] MEDS: PANTOPRAZOLE 40 MG TABLET (FP) PO SCH (10:22)
[2017-11-20] MEDS: levETIRAcetam 500 MG TABLET (FP) PO SCH ×2 (10:22→22:07)
[2017-11-20] MEDS: ESCITALOPRAM OXALATE 10 MG TABLET (FP) PO SCH (10:22)
[2017-11-20] MEDS: LISINOPRIL 20 MG TABLET (FP) PO SCH (10:22)
[2017-11-20] MEDS: FENOFIBRIC ACID 135 MG CAP PO SCH (10:23)
[2017-11-20] MEDS: NICOTINE 21 MG/24 HOURS TOPICAL PATCH TD SCH (10:23)
[2017-11-20] MEDS: LIPASE/PROTEASE/AMYLASE 6,000 UNIT CAPSULE PO SCH ×3 (10:23→18:39)
[2017-11-20] MEDS: PRENATAL VITAMINS W/ FOLIC ACID TABLET (FP) PO SCH (10:23)
--- NOTE | 2017-11-20 15:32 | PN ---
S Progress Note (SOAP) Subjective: Sweating, agitated, c/o migraine stating he takes excedrin at home and is given naproxen here, patient doesn't want to speak anymore with health science writer Objective: 11/20/17 15:28 Last Vital Signs Temp Pulse Resp BP Pulse Ox 98.1 F 101 H 20 137/94 11/20/17 14:56 11/20/17 14:56 11/20/17 14:56 11/20/17 14:56 Laboratory Tests 11/17/17 11/18/17 11/18/17 14:01 05:50 05:50 WBC 7.3 RBC 4.94 Hgb 14.2 Hct 41.6 MCV 84.4 MCH 28.7 MCHC 34.1 RDW 14.9 D Plt Count 283 D MPV 9.2 D Sodium 139 Potassium 4.2 Chloride 105 Carbon Dioxide 23 D Anion Gap 11 BUN 13 Creatinine 1.4 H Creat Clearance w eGFR 58.01 POC Glucometer 102 Random Glucose 101 Calcium 9.7 Total Bilirubin 0.3 AST 40 H ALT 47 D Alkaline Phosphatase 54 Total Protein 8.7 H Albumin 4.6 Urine Color Urine Appearance Urine pH Ur Specific [place] Urine Protein Urine Glucose (UA) Urine Ketones Urine Blood Urine Nitrite Urine Bilirubin Urine Urobilinogen Ur Leukocyte Esterase Urine WBC (Auto) Urine RBC (Auto) Urine Bacteria Urine Yeast RPR Titer 11/18/17 11/18/17 11/18/17 05:50 06:18 07:00 WBC RBC Hgb Hct MCV MCH MCHC RDW Plt Count MPV Sodium Potassium Chloride Carbon Dioxide Anion Gap BUN Creatinine Creat Clearance w eGFR POC Glucometer 104 Random Glucose Calcium Total Bilirubin AST ALT Alkaline Phosphatase Total Protein Albumin Urine Color Yellow Urine Appearance Turbid Urine pH 5.0 Ur Specific [place] 1.023 Urine Protein 1+ H Urine Glucose (UA) Negative Urine Ketones Negative Urine Blood Negative Urine Nitrite Negative Urine Bilirubin Negative Urine Urobilinogen Negative Ur Leukocyte Esterase Negative Urine WBC (Auto) None Urine RBC (Auto) None Urine Bacteria Many Urine Yeast Many RPR Titer Nonreactive 11/18/17 11/19/17 11/20/17 16:32 16:19 06:48 WBC RBC Hgb Hct MCV MCH MCHC RDW Plt Count MPV Sodium Potassium Chloride Carbon Dioxide Anion Gap BUN Creatinine Creat Clearance w eGFR POC Glucometer 107 151 137 Random Glucose Calcium Total Bilirubin AST ALT Alkaline Phosphatase Total Protein Albumin Urine Color Urine Appearance Urine pH Ur Specific [place] Urine Protein Urine Glucose (UA) Urine Ketones Urine Blood Urine Nitrite Urine Bilirubin Urine Urobilinogen Ur Leukocyte Esterase Urine WBC (Auto) Urine RBC (Auto) Urine Bacteria Urine Yeast RPR Titer Labs reviewed: noted with prerenal azotemia and proteinuria Assessment: 11/20/17 15:30 Withdrawal symptoms Noted with prerenal azotemia and proteinuria Plan: Continue detox Prerenal azotemia: encouraged PO water hydration Proteinuria: encouraged PO water hydration, repeat UA
[2017-11-20] MEDS: chlordiazePOXIDE HCL 10 MG CAPSULE PO SCH ×2 (16:23→22:07)
[2017-11-20] MEDS: THIAMINE HCL 100 MG TABLET (FP) PO SCH (22:07)
[2017-11-20] MEDS: QUEtiapine FUMARATE 300 MG TABLET PO SCH (22:07)
[2017-11-20] MEDS: MELATONIN 5 MG TABLETS PO PRN (22:07)
[2017-11-21] MEDS: chlordiazePOXIDE HCL 10 MG CAPSULE PO SCH (06:36)
[2017-11-21 09:25] VITALS: BP 113/67; PULSE 82; TEMP 96.1
[2017-11-21] MEDS ORDERED: levETIRAcetam 250 MG TABLET (FP) PO ONE (09:45)
--- NOTE | 2017-11-21 11:57 | PN ---
B[facility] Progress Note (SOAP) Subjective: A & O x 3 "I am going to rehab" Objective: A & O x 3 irritable Vital Signs Temperature 96.1 F L 11/21/17 09:24 Pulse Rate 82 11/21/17 09:24 Respiratory Rate 18 11/21/17 09:24 Blood Pressure 113/67 11/21/17 09:24 O2 Sat by Pulse Oximetry (%) Assessment: 11/21/17 11:57 detox successfully completed Plan: For discharge
--- NOTE | 2017-11-21 12:04 | DS ---
[facility] Detox Discharge Summary Admission Date: 11/17/17 Discharge Date: 11/21/17 - History Additional Comments: DM 'HTN' High cholesterol Asthma GERD Seizure - Physical Exam Results Vital Signs: Vital Signs Temperature 96.1 F L 11/21/17 09:24 Pulse Rate 82 11/21/17 09:24 Respiratory Rate 18 11/21/17 09:24 Blood Pressure 113/67 11/21/17 09:24 O2 Sat by Pulse Oximetry (%) Pertinent Admission Physical Exam Findings: withdrawal sx - Treatment Hospital Course: Detox Protocol Followed, Detoxed Safely, Responded well, Discharged Condition Good, Rehab Referral Accepted Patient has Accepted a Rehab Referral to: [facility] Rehab - Medication Discharge Medications: Ambulatory Orders Albuterol Sulfate Inhaler - [Ventolin HFA Inhaler -] 2 puff IH Q4H PRN #1 inhaler 07/07/17 levETIRAcetam [Keppra -] 500 mg PO BID #60 tablet 07/07/17 Lipase/Protease/Amylase [Creon Dr 3,000 Units Capsule] 2 each PO TID 09/09/17 Metformin HCl [Glucophage] 500 mg PO BID 09/09/17 Cyanocobalamin [Vitamin B12 -] 1,000 mcg PO DAILY 11/17/17 Ergocalciferol [Vitamin D2] 50,000 unit PO Q7D@1000 11/17/17 Escitalopram Oxalate [Lexapro -] 10 mg PO DAILY 11/17/17 Fenofibrate Nanocrystallized [Fenofibrate] 145 mg PO BID 11/17/17 Folic Acid - 1 mg PO DAILY 11/17/17 Lisinopril [Prinivil] 40 mg PO DAILY 11/17/17 Pantoprazole Sodium [Protonix] 40 mg PO DAILY 11/17/17 Quetiapine Fumarate [Seroquel -] 500 mg PO HS 11/17/17 - Diagnosis (1) Alcohol dependence with uncomplicated withdrawal Current Visit: Yes Status: Acute (2) Anxiety and depression Current Visit: Yes Status: Acute (3) Cannabis dependence Current Visit: Yes Status: Acute (4) Insomnia Current Visit: Yes Status: Acute Qualifiers: Insomnia type: unspecified Qualified Code(s): G47.00 - Insomnia, unspecified (5) Marijuana dependence Current Visit: Yes Status: Acute (6) Substance induced mood disorder Current Visit: Yes Status: Acute (7) Asthma Current Visit: Yes Status: Chronic Qualifiers: Asthma severity: unspecified severity Asthma persistence: unspecified Asthma complication type: uncomplicated Qualified Code(s): J45.909 - Unspecified asthma, uncomplicated (8) Essential hypertension Current Visit: Yes Status: Chronic (9) GERD (gastroesophageal reflux disease) Current Visit: Yes Status: Chronic Qualifiers: Esophagitis presence: esophagitis presence not specified Qualified Code(s) : K21.9 - Gastro-esophageal reflux disease without esophagitis (10) History of pancreatitis Current Visit: Yes Status: Chronic (11) Nicotine dependence Current Visit: Yes Status: Chronic Qualifiers: Nicotine product type: cigarettes Substance use status: in withdrawal Qualified Code(s): F17.213 - Nicotine dependence, cigarettes, with withdrawal (12) Seizure disorder Current Visit: Yes Status: Chronic (13) Opioid dependence with withdrawal Current Visit: No Status: Acute (14) DM type 2 (diabetes mellitus, type 2) Current Visit: No Status: Chronic Qualifiers: Diabetes mellitus correction insulin use: without correction use Diabetes mellitus complication status: without complication Qualified Code(s): E11.9 - Type 2 diabetes mellitus without complications (15) Hypercholesterolemia Current Visit: No Status: Chronic (16) Hypertension Current Visit: No Status: Chronic Qualifiers: Hypertension type: essential hypertension Qualified Code(s): I10 - Essential (primary) hypertension - AMA Did Patient Leave Against Medical Advice: No
[2017-11-24] MEDS ORDERED: ERGOCALCIFEROL (VITAMIN D2) 50,000 UNIT CAPSULE (FP) PO SCH (10:00)
== END 2017-11-21 12:14 | disposition other institution (70) | DRG 773 ==
LOC: YASAS 11:17 → Y3N 14:14
PROVIDERS: ADMIT Surgery; ATTEND Surgery
PROC: HZ2ZZZZ Detoxification Services for Substance Abuse Treatment (ICD-10-PCS; principal; 2017-11-17)
DX: F11.23 Opioid dependence with withdrawal (principal); F10.230 Alcohol dependence with withdrawal, uncomplicated; F12.20 Cannabis dependence, uncomplicated; F17.213 Nicotine dependence, cigarettes, with withdrawal; F41.8 Other specified anxiety disorders; F19.24 Other psychoactive substance dependence with psychoactive substance-induced mood disorder; F31.9 Bipolar disorder, unspecified; I10 Essential (primary) hypertension; G47.00 Insomnia, unspecified; J45.909 Unspecified asthma, uncomplicated; K21.9 Gastro-esophageal reflux disease without esophagitis; G40.909 Epilepsy, unspecified, not intractable, without status epilepticus; E11.9 Type 2 diabetes mellitus without complications; E78.5 Hyperlipidemia, unspecified; R79.89 Other specified abnormal findings of blood chemistry; R80.9 Proteinuria, unspecified; Z79.84 Long term (current) use of oral hypoglycemic drugs; Z91.013 Allergy to seafood; Z87.19 Personal history of other diseases of the digestive system; Z91.14 Patient's other noncompliance with medication regimen
CPT/HCPCS: 36415; 80053; 81003; 81015; 82962; 85027; 86593; 93005; 93010; Q0162

== ENCOUNTER 2018-05-30 15:25 | Inpatient (IN) | payer BC ==
[2018-05-30 17:27] VITALS: BMI 35.8
--- NOTE | 2018-05-30 20:24 | HP ---
CIWA Score Nausea/Vomitin-Int. Nausea w/Dry Heave Muscle Tremors: 3 Anxiety: 3 Agitation: 3 Paroxysmal Sweats: 3 Orientation: 0-Oriented Tacttile Disturbances: 0-None Auditory Disturbances: 0-None Visual Disturbances: 0-None Headache: 2-Mild CIWA-Ar Total Score: 18 - Admission Criteria OASAS Guidelines: Admission for Medically Managed Detox: Requires at least one of the followin. CIWA greater than 12 2. Seizures within the past 24 hours 3. Delirium tremens within the past 24 hours 4. Hallucinations within the past 24 hours 5. Acute intervention needed for co occurring medical disorder 6. Acute intervention needed for co occurring psychiatric disorder 7. Severe withdrawal that cannot be handled at a lower level of care (continued vomiting, continued diarrhea, abnormal vital signs) requiring intravenous medication and/or fluids 8. Patient presents the following: CIWA greater than 12 Admission Criteria Met: Admission criteria met Admission ROS S - [facility] Chief Complaint: " I am tire of drinking and my body being co-dependent on alcohol" Allergies/Adverse Reactions: Allergies Allergy/AdvReac Type Severity Reaction Status Date / Time No Known Drug Allergies Allergy Verified 11/21/17 23:37 shellfish derived AdvReac Severe Verified 11/21/17 23:37 tomato AdvReac Severe Verified 11/21/17 23:37 History of Present Illness: 32 yo male with hx of alcohol dependence, nicotine and marijuana dependence is here seeking alcohol detox, this is one of multiple admissions, but keep relapsing. Patient reports last detox at [facility] six weeks ago. PMHX: Asthma, obesity, HTN, pancreatitis, DM II ( non-compliance) Epilepsy, bipolar, and insomnia. Denies suicidal / homicidal ideation. Reports longest period of sobriety four months Exam Limitations: No Limitations - Ebola screening Have you traveled outside of the country in the last 21 days: No Have you had contact with anyone from an Ebola affected area: No Have you been sick,other than usual withdrawal symptoms: No - Review of Systems Constitutional: Chills, Loss of Appetite, Changes in sleep, Unintentional Wgt. Loss (20 lbs loss since March 2018) EENT: reports: Other (rhinorrhea) Respiratory: reports: No Symptoms reported Cardiac: reports: No Symptoms Reported GI: reports: Nausea, Poor Appetite, Poor Fluid Intake, Vomiting, Abdominal cramping : reports: No Symptoms Reported Musculoskeletal: reports: No Symptoms Reported Integumentary: reports: No Symptoms Reported Neuro: reports: See HPI, Headache Endocrine: reports: Increased Thirst Hematology: reports: No Symptoms Reported Psychiatric: reports: Orientated x3, Anxious Other Systems: Reviewed and Negative Patient History - Patient Medical History Hx Anemia: No Hx Asthma: Yes Hx Chronic Obstructive Pulmonary Disease (COPD): No Hx Cancer: No Hx Cardiac Disorders: No Hx Congestive Heart Failure: No Hx Hypertension: Yes Hx Hypercholesterolemia: Yes (hx in the past , taking medciation ) Hx Pacemaker: No HX Cerebrovascular Accident: No Hx Seizures: Yes (Last on 2016) Hx Dementia: No Hx Diabetes: Yes Hx Gastrointestinal Disorders: No Hx Liver Disease: No Hx Genitourinary Disorders: No Hx Sexually Transmitted Disorders: No Hx Renal Disease (ESRD): No Hx Thyroid Disease: No Hx Human Immunodeficiency Virus (HIV): No (06/19 negative) Hx Hepatitis C: No Hx Depression: Yes Hx Suicide Attempt: No Hx Bipolar Disorder: Yes (no med) Hx Schizophrenia: No - Patient Surgical History Past Surgical History: Yes Hx Neurologic Surgery: No Hx Cataract Extraction: No Hx Cardiac Surgery: No Hx Lung Surgery: No Hx Breast Surgery: No Hx Breast Biopsy: No Hx Abdominal Surgery: No Hx Appendectomy: No Hx Cholecystectomy: No Hx Genitourinary Surgery: No Hx Section: No Hx Orthopedic Surgery: No Other Surgical History: abcess removals left side head Anesthesia Reaction: No - PPD History Previous Implant?: No Documented Results: Negative w/proof Date: 04/02/17 Results: 0 mm. PPD to be Administered?: Yes - Smoking Cessation Smoking history: Current every day smoker Have you smoked in the past 12 months: Yes Aproximately how many cigarettes per day: 20 Cigars Per Day: 0 Hx Chewing Tobacco Use: No Initiated information on smoking cessation: Yes 'Breaking Loose' booklet given: 05/30/18 - Substance & Tx. History Hx Alcohol Use: Yes Hx Substance Use: Yes Substance Use Type: Alcohol, Marijuana Hx Substance Use Treatment: Yes (Detox at [facility] six weeks ago) - Substances Abused alcohol Route: Oral Frequency: Daily Amount used: 2 litter liquor Age of first use: 14 Date of Last Use: 05/30/18 Marijuana/Hashish Route: Smoking Frequency: Daily Amount used: 1/4 oz Age of first use: 11 Date of Last Use: 05/30/18 Family Disease History - Family Disease History Family Disease History: Diabetes: Father (heroin dependence ), Mother, Brother, Heart Disease: Brother, CA: Grandparent, Respiratory: Grandparent, Father, Other : Father, Sister (NO SISTER) Admission Physical Exam S - Vital Signs Vital Signs: Vital Signs - 24 hr 05/30/18 17:25 Temperature 96.8 F L Pulse Rate 81 Respiratory 18 Rate Blood Pressure 152/118 H - Physical General Appearance: Yes: Disheveled, Obese, Sweating, Anxious HEENTM: Yes: EOMI, Hearing grossly Normal, Normal ENT Inspection, Normocephalic , Normal Voice, TRICIA, Pharynx Normal, Tm's normal, Rhinorrhea Respiratory: Yes: Chest Non-Tender, Lungs Clear, Normal Breath Sounds, No Respiratory Distress, No Accessory Muscle Use Neck: Yes: Within Normal Limits Breast: Yes: Breast Exam Deferred Cardiology: Yes: Regular Rhythm, Regular Rate Abdominal: Yes: Normal Bowel Sounds, Non Tender, Soft, Protuberent Genitourinary: Yes: Within Normal Limits Back: Yes: Normal Inspection Musculoskeletal: Yes: full range of Motion, Gait Steady, Pelvis Stable Extremities: Yes: Normal Capillary Refill, Normal Inspection, Normal Range of Motion, Non-Tender 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, Fully Oriented, Alert, Motor Strength 5/5, Depressed Affect Integumentary: Yes: Normal Color, Warm, Diaphoresis Lymphatic: Yes: Within Normal Limits - Diagnostic (1) Alcohol dependence with uncomplicated withdrawal Current Visit: Yes Status: Acute (2) Marijuana dependence Current Visit: Yes Status: Acute (3) Asthma Current Visit: Yes Status: Chronic Qualifiers: Asthma severity: unspecified severity Asthma persistence: unspecified Asthma complication type: uncomplicated Qualified Code(s): J45.909 - Unspecified asthma, uncomplicated (4) DM type 2 (diabetes mellitus, type 2) Current Visit: Yes Status: Chronic Qualifiers: Diabetes mellitus care home insulin use: without care home use Diabetes mellitus complication status: without complication Qualified Code(s): E11.9 - Type 2 diabetes mellitus without complications (5) Essential hypertension Current Visit: Yes Status: Chronic (6) GERD (gastroesophageal reflux disease) Current Visit: Yes Status: Chronic Qualifiers: Esophagitis presence: esophagitis presence not specified Qualified Code(s) : K21.9 - Gastro-esophageal reflux disease without esophagitis (7) History of pancreatitis Current Visit: Yes Status: Chronic (8) Nicotine dependence Current Visit: Yes Status: Chronic Qualifiers: Nicotine product type: cigarettes (9) Seizure disorder Current Visit: Yes Status: Chronic Comment: SINCE 2009 LAST EPISODE 2014 KEPP (10) Elevated blood pressure reading in office with diagnosis of hypertension Current Visit: Yes Status: Acute (11) Non compliance w medication regimen Current Visit: Yes Status: Acute Cleared for Admission S - Detox or Rehab [facility] Level of Care: Medically Managed Detox Regimen/Protocol: Librium S Breath Alcohol Content Breath Alcohol Content: 0 Urine Drug Screen - Results Drug Screen Negative: No Urine Drug Screen Results: THC-Marijuana, BZO-Benzodiazepines Inpatient Rehab Admission - Rehab Decision to Admit Inpatient rehab admission?: No
[2018-05-30] MEDS ORDERED: ONDANSETRON *ODT* 4 MG TABLET SL PRN (20:27)
[2018-05-30] MEDS ORDERED: MAGNESIUM HYDROX 2400MG/30ML ORAL SUSPENSION 30 ML CUP PO PRN (20:32)
[2018-05-30] MEDS ORDERED: MAGNESIUM CITRATE 300 ML BOTTLE PO PRN (20:32)
[2018-05-30] MEDS ORDERED: ACETAMINOPHEN 325 MG TABLET (FP) PO PRN (20:32)
[2018-05-30] MEDS ORDERED: NICOTINE POLACRILEX 2 MG GUM BC PRN (20:32)
[2018-05-30] MEDS ORDERED: chlordiazePOXIDE HCL 25 MG CAPSULE PO PRN (20:32)
[2018-05-30] MEDS ORDERED: MENTHOL/PHENOL 1 EACH UD MM PRN (20:32)
[2018-05-30] MEDS ORDERED: LOPERAMIDE HCL 2 MG CAPSULE PO PRN (20:32)
[2018-05-30] MEDS ORDERED: guaiFENesin/D-METHORPHAN HB 10 ML UNIT-DOSE CUPS PO PRN (20:32)
[2018-05-30] MEDS ORDERED: MAG HYDROX/AL HYDROX/SIMETH 30 ML UNIT-DOSE CUP PO PRN (20:32)
[2018-05-30] MEDS ORDERED: IBUPROFEN 400 MG TABLET (FP) PO PRN (20:32)
[2018-05-30] MEDS ORDERED: P-EPHED 60MG/TRIPROLIDI 2.5MG TABLET PO PRN (20:32)
[2018-05-30] MEDS ORDERED: cloNIDine HCL 0.1 MG TABLET PO ONE (20:37)
[2018-05-30] MEDS ORDERED: MELATONIN 5 MG TABLETS PO PRN (22:00)
[2018-05-30] MEDS ORDERED: chlordiazePOXIDE HCL 25 MG CAPSULE PO SCH (23:00)
[2018-05-31] MEDS ORDERED: cloNIDine HCL 0.1 MG TABLET PO ONE (02:00)
[2018-05-31] MEDS: chlordiazePOXIDE HCL 25 MG CAPSULE PO SCH ×5 (02:06→22:05)
[2018-05-31] MEDS: THIAMINE HCL 100 MG TABLET (FP) PO SCH ×2 (02:13→22:05)
--- NOTE | 2018-05-31 07:43 | CONSULT ---
[facility] Psychiatric Consult - Data Date of interview: 05/31/18 Admission source: [facility] Identifying data: This is a 32 years old male, father of three, living with family, on PA support, with history of Bipolar Disorder, history of psychiatric hospitalizations, multiple medical problems history, with a history of alcohol, cannabis, nicotine dependence, is here reporting wothdrawal symptoms and seeking alcohol detox. This is one of the multiple detox admissions. As per computer there is a history of Opioids, PCP, Benozodiazepins dependence as well. Substance Abuse History: Smoking history: Current every day smoker. Have you smoked in the past 12 months: Yes. Aproximately how many cigarettes per day: 20. Cigars Per Day: 0. Hx Chewing Tobacco Use: No. Initiated information on smoking cessation: Yes. 'Breaking Loose' booklet given: 05/30/18. - Substance & Tx. History. Hx Alcohol Use: Yes. Hx Substance Use: Yes. Substance Use Type : Alcohol, Marijuana. Hx Substance Use Treatment: Yes (Detox at [facility] six weeks ago). - Substances Abused. alcohol. Route: Oral. Frequency: Daily. Amount used: 2 litter liquor. Age of first use: 14. Date of Last Use: 05/30/18. Marijuana/Hashish. Route: Smoking. Frequency: Daily. Amount used: 1/4 oz. Age of first use: 11. Date of Last Use: . Family Disease History Medical History: Hypercholestaerolemia, Prerinal Azothemia history, Migrane, Obesity, Asthma, HTN, GERD, DM-II, Pancreatitis history, Epilspsy, Proteinuria history Psychiatric History: Patient reports history of Bipolar Disorder, severe insomnia, depression and anxiety mood swings, most recent psychiatric admission for safety on about 3 years ago, reports currently taking Seroquel 500mg pop qhs, insist on continuation of this dose, reports he was never has been oversedated after taking Seroquel 500mg po qhs, reports aking in for the last 3 years, and last time the night prior to admission. Denies suicidal, homiisidal history. confirmed by home medications llist Physical/Sexual Abuse/Trauma History: Denies Additional Comment: Seroquel 500mg po qhs Mental Status Exam - Mental Status Exam Alert and Oriented to: Person Cognitive Function: Fair Patient Appearance: Unkempt Mood: Sad Affect: Flat Patient Behavior: Cooperative Speech Pattern: Delayed Voice Loudness: Mildly Soft/Quiet Thought Process: Goal Oriented Thought Disorder: Being Controlled Hallucinations: Denies Suicidal Ideation: Denies Homicidal Ideation: Denies Insight/Judgement: Fair Sleep: Difficulty falling asleep Appetite: Weight gain Muscle strength/Tone: Mild Hypotonicity Gait/Station: Shuffling Additional Comments: Seroquel 500mg po qhs Psychiatric Findings - Problem List (Industry 1, 2,3) (1) Alcohol dependence with uncomplicated withdrawal Current Visit: Yes Status: Acute (2) Elevated blood pressure reading in office with diagnosis of hypertension Current Visit: Yes Status: Acute (3) Marijuana dependence Current Visit: Yes Status: Acute (4) Non compliance w medication regimen Current Visit: Yes Status: Acute (5) Asthma Current Visit: Yes Status: Chronic Qualifiers: Asthma severity: unspecified severity Asthma persistence: unspecified Asthma complication type: uncomplicated Qualified Code(s): J45.909 - Unspecified asthma, uncomplicated (6) DM type 2 (diabetes mellitus, type 2) Current Visit: Yes Status: Chronic Qualifiers: Diabetes mellitus longterm insulin use: without medical staff assistant use Diabetes mellitus complication status: without complication Qualified Code(s): E11.9 - Type 2 diabetes mellitus without complications (7) Essential hypertension Current Visit: Yes Status: Chronic (8) GERD (gastroesophageal reflux disease) Current Visit: Yes Status: Chronic Qualifiers: Esophagitis presence: esophagitis presence not specified Qualified Code(s) : K21.9 - Gastro-esophageal reflux disease without esophagitis (9) History of pancreatitis Current Visit: Yes Status: Chronic (10) Nicotine dependence Current Visit: Yes Status: Chronic Qualifiers: Nicotine product type: cigarettes (11) Seizure disorder Current Visit: Yes Status: Chronic Comment: SINCE 2009 LAST EPISODE 2014 BING (12) Acute prerenal azotemia Current Visit: No Status: Acute (13) Hypokalemia Current Visit: No Status: Acute (14) Migraine headache Current Visit: No Status: Acute (15) Opiate abuse, episodic Current Visit: No Status: Acute (16) Opioid dependence Current Visit: No Status: Acute (17) PCP dependence Current Visit: No Status: Acute (18) Proteinuria Current Visit: No Status: Acute (19) Sedative dependence Current Visit: No Status: Acute (20) Uncomplicated opioid dependence Current Visit: No Status: Acute (21) Uncomplicated sedative, hypnotic, or anxiolytic withdrawal Current Visit: No Status: Acute (22) Depression (emotion) Current Visit: No Status: Chronic Qualifiers: Depression Type: dysthymia Qualified Code(s): F34.1 - Dysthymic disorder (23) Hypercholesterolemia Current Visit: No Status: Chronic (24) Hypertension Current Visit: No Status: Chronic Qualifiers: (25) Substance induced mood disorder Current Visit: No Status: Chronic - Initial Treatment Plan Initial Treatment Plan: Seroquel 500mg po qhs
[2018-05-31] MEDS ORDERED: ALBUTEROL SO4 8 GM HFA INHALER IH PRN (08:52)
[2018-05-31] MEDS ORDERED: metFORMIN HCL 500 MG TABLET (FP) PO ONE (09:01)
[2018-05-31] MEDS: NICOTINE 14 MG/24 HOURS TOPICAL PATCH TD SCH (10:25)
[2018-05-31] MEDS: PRENATAL VITAMINS W/ FOLIC ACID TABLET (FP) PO SCH (10:25)
[2018-05-31] MEDS: LISINOPRIL 20 MG TABLET (FP) PO SCH (10:27)
[2018-05-31] MEDS: levETIRAcetam 500 MG TABLET (FP) PO SCH ×2 (11:21→22:06)
[2018-05-31] MEDS: LIPASE/PROTEASE/AMYLASE 6,000 UNIT CAPSULE PO SCH ×2 (12:00→16:53)
[2018-05-31 12:38] LABS: HEMATOCRIT 39.9 % (35.4-49); HEMOGLOBIN 13.2 GM/dL (11.7-16.9); MCH 29.4 pg (25.7-33.7); MCHC 33.1 g/dl (32.0-35.9); MEAN CELL VOLUME 88.7 fl (80-96); MEAN PLT VOLUME 9.3 fl (7.5-11.1); PLATELET COUNT 138 K/MM3 (134-434); RDW 16.9 % (11.9-15.9); WHITE BLOOD COUNT 5.9 K/mm3 (4.0-10.0)
[2018-05-31 12:56] LABS: ALBUMIN 3.6 g/dl (3.4-5.0); ALK PHOS 54 U/L (45-117); ANION GAP 7 MMOL/L (8-16); BILIRUBIN,TOTAL 0.5 mg/dL (0.2-1); BLOOD UREA NITROGEN 9 mg/dL (7-18); CALCIUM 8.3 mg/dL (8.5-10.1); CHLORIDE 104 mmol/L (98-107); CO2 26 mmol/L (21-32); CREATININE 1.1 mg/dL (0.55-1.3); GLUCOSE,RANDOM 107 mg/dL (74-106); POTASSIUM 3.1 mmol/L (3.5-5.1); SGOT/AST 42 U/L (15-37); SGPT/ALT 80 U/L (13-61); SODIUM 137 mmol/L (136-145); TOT PROT 7.2 g/dl (6.4-8.2)
[2018-05-31] MEDS ORDERED: POTASSIUM CHLORIDE TABS 20 MEQ TABLET.ER (FP) PO ONE (15:40)
--- NOTE | 2018-05-31 15:44 | PN ---
S CIWA - CIWA Score Nausea/Vomitin Muscle Tremors: 3 Anxiety: 3 Agitation: 0-Normal Activity Paroxysmal Sweats: 3 Orientation: 0-Oriented Tacttile Disturbances: 0-None Auditory Disturbances: 2-Mild Harshness/Frighten Visual Disturbances: 2-Mild Sensitivity Headache: 0-None Present CIWA-Ar Total Score: 16 BHS Progress Note (SOAP) Subjective: Interrupted sleep, Sweating, Nausea, Tremors. Objective: PATIENT A & O X 3, OBSERVED AMBULATING ON UNIT. IN NO ACUTE DISTRESS. 05/31/18 15:42 Vital Signs Temperature 97.6 F 05/31/18 13:05 Pulse Rate 76 05/31/18 13:05 Respiratory Rate 18 05/31/18 13:05 Blood Pressure 139/89 05/31/18 13:05 O2 Sat by Pulse Oximetry (%) Laboratory Tests 05/31/18 05/31/18 05/31/18 06:24 07:00 07:00 WBC 5.9 RBC 4.50 Hgb 13.2 Hct 39.9 MCV 88.7 MCH 29.4 MCHC 33.1 RDW 16.9 H Plt Count 138 D MPV 9.3 Sodium 137 Potassium 3.1 L Chloride 104 Carbon Dioxide 26 Anion Gap 7 L BUN 9 Creatinine 1.1 Creat Clearance w eGFR > 60 POC Glucometer 119 Random Glucose 107 H Calcium 8.3 L Total Bilirubin 0.5 AST 42 H ALT 80 H Alkaline Phosphatase 54 Total Protein 7.2 Albumin 3.6 LABS NOTED. LEVETIRACETAM LEVEL PENDING. Assessment: 05/31/18 15:43 WITHDRAWAL SYMPTOMS. HYPOKALEMIA. 05/31/18 15:44 Plan: CONTINUE DETOX. INCREASE DAILY PO FLUID INTAKE. K-DUR, 40 MEQ PO X 1 NOW, THEN 20 MEQ PO BID AFTER.
[2018-05-31] MEDS: metFORMIN HCL 500 MG TABLET (FP) PO SCH (17:23)
[2018-05-31] MEDS: POTASSIUM CHLORIDE TABS 20 MEQ TABLET.ER (FP) PO SCH (19:18)
[2018-05-31] MEDS: QUEtiapine FUMARATE 200 MG TABLET PO SCH (22:09)
[2018-06-01] MEDS: metFORMIN HCL 500 MG TABLET (FP) PO SCH ×2 (06:47→17:25)
[2018-06-01] MEDS: chlordiazePOXIDE HCL 25 MG CAPSULE PO SCH ×3 (06:47→18:07)
[2018-06-01] MEDS: LIPASE/PROTEASE/AMYLASE 6,000 UNIT CAPSULE PO SCH ×3 (08:00→17:09)
[2018-06-01] MEDS ORDERED: COLLOIDAL OATMEAL 1 BAR EACH TP PRN (09:18)
[2018-06-01] MEDS: POTASSIUM CHLORIDE TABS 20 MEQ TABLET.ER (FP) PO SCH ×2 (11:17→18:07)
[2018-06-01] MEDS: PRENATAL VITAMINS W/ FOLIC ACID TABLET (FP) PO SCH (11:18)
[2018-06-01] MEDS: NICOTINE 14 MG/24 HOURS TOPICAL PATCH TD SCH (11:18)
[2018-06-01] MEDS: levETIRAcetam 500 MG TABLET (FP) PO SCH ×2 (11:18→22:36)
[2018-06-01] MEDS: LISINOPRIL 20 MG TABLET (FP) PO SCH (11:18)
--- NOTE | 2018-06-01 14:51 | PN ---
S CIWA - CIWA Score Nausea/Vomitin-No Nausea/No Vomiting Muscle Tremors: 3 Anxiety: 3 Agitation: 2 Paroxysmal Sweats: 3 Orientation: 0-Oriented Tacttile Disturbances: 0-None Auditory Disturbances: 0-None Visual Disturbances: 2-Mild Sensitivity Headache: 0-None Present CIWA-Ar Total Score: 13 BHS Progress Note (SOAP) Subjective: Interrupted Sleep, Sweating, Anxious, Tremors. Objective: PATIENT A & O X 3, OBSERVED AMBULATING ON UNIT. IN NO ACUTE DISTRESS. 06/01/18 14:52 Vital Signs Temperature 97.8 F 06/01/18 13:12 Pulse Rate 75 06/01/18 13:12 Respiratory Rate 18 06/01/18 13:12 Blood Pressure 126/70 06/01/18 13:12 O2 Sat by Pulse Oximetry (%) Laboratory Tests 05/31/18 05/31/18 05/31/18 06:24 07:00 07:00 WBC 5.9 RBC 4.50 Hgb 13.2 Hct 39.9 MCV 88.7 MCH 29.4 MCHC 33.1 RDW 16.9 H Plt Count 138 D MPV 9.3 Sodium 137 Potassium 3.1 L Chloride 104 Carbon Dioxide 26 Anion Gap 7 L BUN 9 Creatinine 1.1 Creat Clearance w eGFR > 60 POC Glucometer 119 Random Glucose 107 H Calcium 8.3 L Total Bilirubin 0.5 AST 42 H ALT 80 H Alkaline Phosphatase 54 Total Protein 7.2 Albumin 3.6 RPR Titer 05/31/18 05/31/18 06/01/18 07:00 16:29 06:43 WBC RBC Hgb Hct MCV MCH MCHC RDW Plt Count MPV Sodium Potassium Chloride Carbon Dioxide Anion Gap BUN Creatinine Creat Clearance w eGFR POC Glucometer 145 156 Random Glucose Calcium Total Bilirubin AST ALT Alkaline Phosphatase Total Protein Albumin RPR Titer Nonreactive LABS NOTED. LEVETIRACETAM LEVEL PENDING. 06/01/18 14:54 Assessment: 06/01/18 14:52 WITHDRAWAL SYMPTOMS. Plan: CONTINUE DETOX. INCREASE DAILY PO FLUID INTAKE.
[2018-06-01] MEDS: QUEtiapine FUMARATE 200 MG TABLET PO SCH (22:36)
[2018-06-01] MEDS: chlordiazePOXIDE 5 MG CAPSULE PO SCH (22:36)
[2018-06-01] MEDS: THIAMINE HCL 100 MG TABLET (FP) PO SCH (22:36)
[2018-06-02] MEDS: chlordiazePOXIDE 5 MG CAPSULE PO SCH ×3 (06:42→18:37)
[2018-06-02] MEDS: metFORMIN HCL 500 MG TABLET (FP) PO SCH ×2 (07:57→18:37)
[2018-06-02] MEDS: LIPASE/PROTEASE/AMYLASE 6,000 UNIT CAPSULE PO SCH ×3 (07:59→18:38)
--- NOTE | 2018-06-02 09:25 | PN ---
S Progress Note (SOAP) Subjective: alert,irritable,interrupted sleep Objective: 06/02/18 09:24 Vital Signs Temperature 96.3 F L 06/02/18 09:21 Pulse Rate 74 06/02/18 09:21 Respiratory Rate 18 06/02/18 09:21 Blood Pressure 131/76 06/02/18 09:21 O2 Sat by Pulse Oximetry (%) Assessment: 06/02/18 09:25 withdrawal symptom Plan: continure detox,discharge in am
[2018-06-02] MEDS: levETIRAcetam 500 MG TABLET (FP) PO SCH ×2 (10:16→22:23)
[2018-06-02] MEDS: LISINOPRIL 20 MG TABLET (FP) PO SCH (10:16)
[2018-06-02] MEDS: PRENATAL VITAMINS W/ FOLIC ACID TABLET (FP) PO SCH (10:16)
[2018-06-02] MEDS: POTASSIUM CHLORIDE TABS 20 MEQ TABLET.ER (FP) PO SCH ×2 (10:16→18:37)
[2018-06-02] MEDS: NICOTINE 14 MG/24 HOURS TOPICAL PATCH TD SCH (10:16)
[2018-06-02] MEDS: QUEtiapine FUMARATE 200 MG TABLET PO SCH (22:23)
[2018-06-02] MEDS: chlordiazePOXIDE HCL 10 MG CAPSULE PO SCH (22:24)
[2018-06-02] MEDS: THIAMINE HCL 100 MG TABLET (FP) PO SCH (22:25)
[2018-06-03] MEDS: chlordiazePOXIDE HCL 10 MG CAPSULE PO SCH (06:28)
[2018-06-03] MEDS: metFORMIN HCL 500 MG TABLET (FP) PO SCH (06:28)
[2018-06-03] MEDS: LIPASE/PROTEASE/AMYLASE 6,000 UNIT CAPSULE PO SCH (07:59)
[2018-06-03 09:26] VITALS: BP 147/91; PULSE 84; TEMP 96.1
--- NOTE | 2018-06-03 09:57 | PN ---
S Progress Note (SOAP) Subjective: Offers no new complaint Objective: 06/03/18 09:54 A & O x 3 In no acute distress Vital Signs Temperature 96.1 F L 06/03/18 09:26 Pulse Rate 84 06/03/18 09:26 Respiratory Rate 18 06/03/18 09:26 Blood Pressure 147/91 06/03/18 09:26 O2 Sat by Pulse Oximetry (%) Assessment: 06/03/18 09:55 Detox completed Plan: For d/c
--- NOTE | 2018-06-03 10:04 | DS ---
[facility] Detox Discharge Summary Admission Date: 05/30/18 Discharge Date: 06/03/18 - History Additional Comments: Pt for discharge Planning to do aftercare at [facility] on Tuesday Pt declines meds refill, states the counselor already picked his meds from the pharmacy yesterday. The Meds passed on to pt by nursing staff. in stable condition and no distress noted - Physical Exam Results Vital Signs: Vital Signs Temperature 96.1 F L 06/03/18 09:26 Pulse Rate 84 06/03/18 09:26 Respiratory Rate 18 06/03/18 09:26 Blood Pressure 147/91 06/03/18 09:26 O2 Sat by Pulse Oximetry (%) Pertinent Admission Physical Exam Findings: withdrawal sx - Treatment Hospital Course: Detox Protocol Followed, Detoxed Safely, Responded well, Discharged Condition Good, Rehab Referral Accepted Patient has Accepted a Rehab Referral to: [facility] - Medication Discharge Medications: Ambulatory Orders Quetiapine Fumarate [Seroquel -] 500 mg PO HS 11/17/17 Quetiapine Fumarate [Seroquel -] 500 mg PO HS #30 tablet 05/31/18 Albuterol Sulfate Inhaler - [Ventolin HFA Inhaler -] 2 puff IH Q4H PRN #1 inhaler 06/02/18 Lipase/Protease/Amylase [Tucker Dumont 6,000 Units Capsule] 1 cap PO TIDCM 30 Days # 90 capsule. 06/02/18 Lisinopril [Prinivil] 40 mg PO DAILY #30 tablet 06/02/18 Pantoprazole Sodium [Protonix -] 40 mg PO DAILY #30 tablet.ec 06/02/18 Potassium Chloride [K-Dur -] 20 meq PO BID@1000,1800 #10 tablet.er 06/02/18 levETIRAcetam [Keppra -] 500 mg PO BID #60 tablet 06/02/18 metFORMIN HCL [Glucophage -] 500 mg PO BID@0700,1630 #60 tablet 06/02/18 - AMA Did Patient Leave Against Medical Advice: No
== END 2018-06-03 09:53 | disposition home or self-care (01) | DRG 775 ==
LOC: YASAS 15:25 → Y6N 21:38
PROVIDERS: ADMIT Surgery; ATTEND Surgery
PROC: HZ2ZZZZ Detoxification Services for Substance Abuse Treatment (ICD-10-PCS; principal; 2018-05-30)
DX: F10.230 Alcohol dependence with withdrawal, uncomplicated (principal); F13.20 Sedative, hypnotic or anxiolytic dependence, uncomplicated; F12.20 Cannabis dependence, uncomplicated; F17.210 Nicotine dependence, cigarettes, uncomplicated; F34.1 Dysthymic disorder; F19.24 Other psychoactive substance dependence with psychoactive substance-induced mood disorder; I10 Essential (primary) hypertension; E78.00 Pure hypercholesterolemia, unspecified; E87.6 Hypokalemia; G40.909 Epilepsy, unspecified, not intractable, without status epilepticus; J45.909 Unspecified asthma, uncomplicated; E11.9 Type 2 diabetes mellitus without complications; K21.9 Gastro-esophageal reflux disease without esophagitis; R79.89 Other specified abnormal findings of blood chemistry; R80.9 Proteinuria, unspecified; E66.9 Obesity, unspecified; Z68.35 Body mass index [BMI] 35.0-35.9, adult; Z91.14 Patient's other noncompliance with medication regimen; Z79.84 Long term (current) use of oral hypoglycemic drugs; Z87.19 Personal history of other diseases of the digestive system; Z91.013 Allergy to seafood
CPT/HCPCS: 36415; 80053; 80177; 82962; 85027; 86593; J0735; Q0162

== ENCOUNTER 2018-08-03 12:51 | Inpatient (IN) | payer BC ==
[2018-08-03 14:22] VITALS: BMI 32.3
--- NOTE | 2018-08-03 14:55 | HP ---
CIWA Score Nausea/Vomitin Muscle Tremors: 2 Anxiety: 3 Agitation: 0-Normal Activity Paroxysmal Sweats: 3 Orientation: 0-Oriented Tacttile Disturbances: 1-Very Mild Itch/Numbness Auditory Disturbances: 0-None Visual Disturbances: 0-None Headache: 3-Moderate CIWA-Ar Total Score: 15 - Admission Criteria OASAS Guidelines: Admission for Medically Managed Detox: Requires at least one of the followin. CIWA greater than 12 2. Seizures within the past 24 hours 3. Delirium tremens within the past 24 hours 4. Hallucinations within the past 24 hours 5. Acute intervention needed for co occurring medical disorder 6. Acute intervention needed for co occurring psychiatric disorder 7. Severe withdrawal that cannot be handled at a lower level of care (continued vomiting, continued diarrhea, abnormal vital signs) requiring intravenous medication and/or fluids 8. Patient presents the following: CIWA greater than 12, Acute intervention needed for co-occurring med or psych disorder Admission Criteria Met: Admission criteria met Admission ROS S - HPI Chief Complaint: alcohol detox " I am tire of needing to drink to get through the day" Allergies/Adverse Reactions: Allergies Allergy/AdvReac Type Severity Reaction Status Date / Time No Known Drug Allergies Allergy Verified 08/03/18 14:18 shellfish derived AdvReac Severe Verified 08/03/18 14:18 tomato AdvReac Severe Verified 08/03/18 14:18 History of Present Illness: 33 yo male with hx of alcohol dependence, nicotine and marijuana dependence is here seeking alcohol detox, d/t withdrawal symptoms, this is one of multiple admissions, but keep relapsing. Patient reports last detox [facility] May 2017, completed fourteen day rehab at [facility] , reports relapsed after discharge. Utox positive for THC and Bzo, reports using Dilaudid one time a week ago. Reports longest period of sobriety four. PMHX: Asthma, obesity, HTN, pancreatitis, DM II ( non-compliance with all meds) Epilepsy, bipolar, and insomnia. Denies suicidal / homicidal ideation. Exam Limitations: No Limitations - Ebola screening Have you traveled outside of the country in the last 21 days: No Have you had contact with anyone from an Ebola affected area: No Do you have a fever: No - Review of Systems Constitutional: Chills, Loss of Appetite, Night Sweats, Changes in sleep (i sleep about two hours, i need a drink), Unintentional Wgt. Loss (18 lbs) EENT: reports: No Symptoms Reported Respiratory: reports: SOB with Exertion Cardiac: reports: No Symptoms Reported GI: reports: Nausea, Poor Appetite, Poor Fluid Intake, Vomiting, Abdominal cramping : reports: No Symptoms Reported Musculoskeletal: reports: No Symptoms Reported Integumentary: reports: No Symptoms Reported Neuro: reports: Headache Endocrine: reports: Excessive Sweating, Increased Thirst Hematology: reports: No Symptoms Reported Psychiatric: reports: Orientated x3, Anxious Other Systems: Reviewed and Negative Patient History - Patient Medical History Hx Anemia: No Hx Asthma: Yes Hx Chronic Obstructive Pulmonary Disease (COPD): No Hx Cancer: No Hx Cardiac Disorders: No Hx Congestive Heart Failure: No Hx Hypertension: Yes Hx Hypercholesterolemia: Yes (hx in the past , taking medciation ) Hx Pacemaker: No HX Cerebrovascular Accident: No Hx Seizures: Yes (Last on 2016) Hx Dementia: No Hx Diabetes: Yes Hx Gastrointestinal Disorders: No Hx Liver Disease: No Hx Genitourinary Disorders: No Hx Sexually Transmitted Disorders: No Hx Renal Disease (ESRD): No Hx Thyroid Disease: No Hx Human Immunodeficiency Virus (HIV): No (06/19 negative) Hx Hepatitis C: No Hx Depression: Yes Hx Suicide Attempt: No Hx Bipolar Disorder: Yes (no med) Hx Schizophrenia: No - Patient Surgical History Past Surgical History: Yes Hx Neurologic Surgery: No Hx Cataract Extraction: No Hx Cardiac Surgery: No Hx Lung Surgery: No Hx Breast Surgery: No Hx Breast Biopsy: No Hx Abdominal Surgery: No Hx Appendectomy: No Hx Cholecystectomy: No Hx Genitourinary Surgery: No Hx Section: No Hx Orthopedic Surgery: No Other Surgical History: abcess removals left side head Anesthesia Reaction: No - PPD History Previous Implant?: No Documented Results: Negative w/proof Date: 06/02/18 Results: 0 mm. PPD to be Administered?: No - Smoking Cessation Smoking history: Current every day smoker Have you smoked in the past 12 months: Yes Aproximately how many cigarettes per day: 20 Cigars Per Day: 0 Hx Chewing Tobacco Use: No Initiated information on smoking cessation: Yes 'Breaking Loose' booklet given: 08/03/18 - Substance & Tx. History Hx Alcohol Use: Yes Hx Substance Use: Yes Substance Use Type: Alcohol, Marijuana Hx Substance Use Treatment: Yes ([facility] May 2017, completed fourteen day rehab at [facility] ) - Substances abused Alcohol Substance route: Oral Frequency: Daily Amount used: 2 L vodka Age of first use: 14 Date of last use: 08/03/18 Marijuana/Hashish Substance route: Smoking Frequency: Daily Amount used: 15 blunts Age of first use: 14 Date of last use: 08/03/18 Family Disease History - Family Disease History Family Disease History: Diabetes: Father (heroin dependence ), Mother, Brother, Heart Disease: Brother, CA: Grandparent, Respiratory: Grandparent, Father, Other : Father, Sister (NO SISTER) Admission Physical Exam S - Vital Signs Vital Signs: Vital Signs - 24 hr 08/03/18 08/03/18 14:18 14:38 Temperature 97.6 F 97.6 F Pulse Rate 92 H 92 H Respiratory 18 18 Rate Blood Pressure 149/101 H 149/101 H - Physical General Appearance: Yes: Disheveled, Moderate Distress, Sweating, Anxious, Other HEENTM: Yes: EOMI, Hearing grossly Normal, Normal ENT Inspection, Normocephalic , Normal Voice, TRICIA, Pharynx Normal, Tm's normal Respiratory: Yes: Chest Non-Tender, Lungs Clear, Normal Breath Sounds, No Respiratory Distress, No Accessory Muscle Use Neck: Yes: Within Normal Limits Breast: Yes: Breast Exam Deferred Cardiology: Yes: Regular Rhythm, Regular Rate Abdominal: Yes: Normal Bowel Sounds, Non Tender, Soft, Protuberent, Tenderness ( RUQ ( attibutes to alochol use)) Genitourinary: Yes: Within Normal Limits Back: Yes: Normal Inspection Musculoskeletal: Yes: full range of Motion, Gait Steady, Pelvis Stable Extremities: Yes: Normal Capillary Refill, Normal Inspection, Normal Range of Motion, Non-Tender Neurological: Yes: inletter II-XII NML intact, Fully Oriented, Alert, Motor Strength 5/5, Depressed Affect Integumentary: Yes: Normal Color, Warm, Diaphoresis Lymphatic: Yes: Within Normal Limits - Diagnostic (1) Alcohol dependence with uncomplicated withdrawal Current Visit: Yes Status: Acute (2) Non compliance w medication regimen Current Visit: Yes Status: Acute (3) Asthma Current Visit: Yes Status: Chronic Qualifiers: Asthma severity: unspecified severity Asthma persistence: unspecified Asthma complication type: uncomplicated Qualified Code(s): J45.909 - Unspecified asthma, uncomplicated (4) Cannabis dependence Current Visit: Yes Status: Chronic (5) Chronic pancreatitis Current Visit: Yes Status: Chronic Qualifiers: Pancreatitis type: alcohol induced Qualified Code(s): K86.0 - Alcohol- induced chronic pancreatitis (6) DM type 2 (diabetes mellitus, type 2) Current Visit: Yes Status: Chronic Qualifiers: Diabetes mellitus exterminator insulin use: without correction use Diabetes mellitus complication status: without complication Qualified Code(s): E11.9 - Type 2 diabetes mellitus without complications (7) GERD (gastroesophageal reflux disease) Current Visit: Yes Status: Chronic Qualifiers: Esophagitis presence: esophagitis presence not specified Qualified Code(s) : K21.9 - Gastro-esophageal reflux disease without esophagitis (8) Hypertension Current Visit: Yes Status: Chronic Qualifiers: Hypertension type: essential hypertension (9) Nicotine dependence Current Visit: Yes Status: Chronic Qualifiers: Nicotine product type: cigarettes (10) Seizure disorder Current Visit: Yes Status: Chronic Comment: SINCE 2009 LAST EPISODE 2014 BING Cleared for Admission S - Detox or Rehab [facility] Level of Care: Medically Managed Detox Regimen/Protocol: Librium Breathalyzer - Breathalyzer Breathalyzer: 0.107 Urine Drug Screen - Test Device Lot number: [id number] Expiration date: 03/03/20 - Control Is test valid?: Yes - Results Drug screen NEGATIVE: No Urine drug screen results: THC-Marijuana, BZO-Benzodiazepines Inpatient Rehab Admission - Rehab Decision to Admit Inpatient rehab admission?: No
[2018-08-03] MEDS ORDERED: ALBUTEROL SO4 8 GM HFA INHALER IH PRN (15:02)
[2018-08-03] MEDS ORDERED: IBUPROFEN 400 MG TABLET (FP) PO PRN ×2 (15:03)
[2018-08-03] MEDS ORDERED: MENTHOL/PHENOL 1 EACH UD MM PRN (15:03)
[2018-08-03] MEDS ORDERED: BISMUTH SUBSALICYLATE 524 MG/30 ML UD PO PRN (15:03)
[2018-08-03] MEDS ORDERED: chlordiazePOXIDE HCL 25 MG CAPSULE PO PRN (15:03)
[2018-08-03] MEDS ORDERED: METHOCARBAMOL 500 MG TABLET PO PRN (15:03)
[2018-08-03] MEDS ORDERED: MAGNESIUM CITRATE 300 ML BOTTLE PO PRN (15:03)
[2018-08-03] MEDS ORDERED: hydrOXYzine PAMOATE 25 MG CAPSULE (FP) PO PRN (15:03)
[2018-08-03] MEDS ORDERED: MAG HYDROX/AL HYDROX/SIMETH 30 ML UNIT-DOSE CUP PO PRN (15:03)
[2018-08-03] MEDS ORDERED: MAGNESIUM HYDROX 2400MG/30ML ORAL SUSPENSION 30 ML CUP PO PRN (15:03)
[2018-08-03] MEDS ORDERED: NICOTINE POLACRILEX 2 MG GUM BUC PRN (15:03)
[2018-08-03] MEDS: metFORMIN HCL 500 MG TABLET (FP) PO SCH (16:32)
[2018-08-03] MEDS: LISINOPRIL 20 MG TABLET (FP) PO SCH (16:32)
[2018-08-03] MEDS: LIPASE/PROTEASE/AMYLASE 6,000 UNIT CAPSULE PO SCH (18:23)
[2018-08-03] MEDS: MELATONIN 5 MG TABLETS PO PRN (22:00)
[2018-08-03] MEDS: chlordiazePOXIDE HCL 25 MG CAPSULE PO SCH (22:00)
[2018-08-03] MEDS: levETIRAcetam 500 MG TABLET (FP) PO SCH (22:00)
[2018-08-03] MEDS: THIAMINE HCL 100 MG TABLET (FP) PO SCH (22:00)
[2018-08-04] MEDS: chlordiazePOXIDE HCL 25 MG CAPSULE PO SCH ×4 (06:32→22:04)
[2018-08-04] MEDS: metFORMIN HCL 500 MG TABLET (FP) PO SCH ×2 (06:35→17:12)
[2018-08-04 10:15] LABS: HEMATOCRIT 46.4 % (35.4-49); HEMOGLOBIN 15.4 GM/dL (11.7-16.9); MCH 29.3 pg (25.7-33.7); MCHC 33.1 g/dl (32.0-35.9); MEAN CELL VOLUME 88.6 fl (80-96); MEAN PLT VOLUME 9.3 fl (7.5-11.1); PLATELET COUNT 175 K/MM3 (134-434); RBC 5.24 M/mm3 (4.00-5.60); WHITE BLOOD COUNT 6.3 K/mm3 (4.0-10.0)
[2018-08-04 10:17] LABS: ALBUMIN 3.8 g/dl (3.4-5.0); ALK PHOS 59 U/L (45-117); ANION GAP 12 MMOL/L (8-16); BILIRUBIN,TOTAL 1.1 mg/dL (0.2-1); BLOOD UREA NITROGEN 11 mg/dL (7-18); CALCIUM 9.6 mg/dL (8.5-10.1); CHLORIDE 101 mmol/L (98-107); CO2 27 mmol/L (21-32); CREATININE 1.1 mg/dL (0.55-1.3); GLUCOSE,RANDOM 99 mg/dL (74-106); SGOT/AST 67 U/L (15-37); SGPT/ALT 60 U/L (13-61); SODIUM 140 mmol/L (136-145); TOT PROT 7.6 g/dl (6.4-8.2)
[2018-08-04] MEDS: PANTOPRAZOLE 40 MG TABLET (FP) PO SCH (10:52)
[2018-08-04] MEDS: LISINOPRIL 20 MG TABLET (FP) PO SCH (10:52)
[2018-08-04] MEDS: LIPASE/PROTEASE/AMYLASE 6,000 UNIT CAPSULE PO SCH ×3 (10:52→17:12)
[2018-08-04] MEDS: PRENATAL VITAMINS W/ FOLIC ACID TABLET (FP) PO SCH (10:52)
[2018-08-04] MEDS: levETIRAcetam 500 MG TABLET (FP) PO SCH ×2 (10:52→22:04)
[2018-08-04] MEDS: NICOTINE 14 MG/24 HOURS TOPICAL PATCH TD SCH (10:53)
[2018-08-04] MEDS ORDERED: cloNIDine HCL 0.1 MG TABLET PO PRN (11:43)
[2018-08-04] MEDS ORDERED: hydrOXYzine PAMOATE 25 MG CAPSULE (FP) PO PRN (11:43)
--- NOTE | 2018-08-04 12:04 | PN ---
S CIWA - CIWA Score Nausea/Vomitin-No Nausea/No Vomiting Muscle Tremors: 3 Anxiety: 4-Mod. Anxious/Guarded Agitation: 4-Moderately Restless Paroxysmal Sweats: 1-Minimal Palms Moist Orientation: 0-Oriented Tacttile Disturbances: 0-None Auditory Disturbances: 0-None Visual Disturbances: 0-None Headache: 1-Very Mild CIWA-Ar Total Score: 13 BHS Progress Note (SOAP) Subjective: pt very agitated, says he feels like he is still in withdrawal- medications is not enough, requesting blanche meaghan with meals, states he does not tolerate vegetables O: Vital Signs - 24 hr 08/03/18 08/03/18 08/03/18 14:18 14:38 17:12 Temperature 97.6 F 97.6 F 98.2 F Pulse Rate 92 H 92 H 83 Respiratory 18 18 18 Rate Blood Pressure 149/101 H 149/101 H 153/101 H 08/03/18 08/03/18 08/04/18 17:13 21:41 00:48 Temperature 97.5 F L Pulse Rate 88 91 H Respiratory 18 18 18 Rate Blood Pressure 141/91 144/97 08/04/18 08/04/18 08/04/18 03:30 06:40 10:42 Temperature 97 F L 97.1 F L Pulse Rate 55 L 76 Respiratory 18 18 18 Rate Blood Pressure 111/69 144/108 H Laboratory Tests 08/03/18 08/04/18 08/04/18 16:26 06:34 07:00 WBC 6.3 RBC 5.24 Hgb 15.4 Hct 46.4 D MCV 88.6 MCH 29.3 MCHC 33.1 RDW 16.0 H Plt Count 175 D MPV 9.3 Sodium Potassium Chloride Carbon Dioxide Anion Gap BUN Creatinine Creat Clearance w eGFR POC Glucometer 113 120 Random Glucose Calcium Total Bilirubin AST ALT Alkaline Phosphatase Total Protein Albumin RPR Titer 08/04/18 08/04/18 07:00 07:00 WBC RBC Hgb Hct MCV MCH MCHC RDW Plt Count MPV Sodium 140 Potassium 3.0 L Chloride 101 Carbon Dioxide 27 Anion Gap 12 BUN 11 Creatinine 1.1 Creat Clearance w eGFR 76.18 POC Glucometer Random Glucose 99 Calcium 9.6 Total Bilirubin 1.1 H AST 67 H ALT 60 Alkaline Phosphatase 59 Total Protein 7.6 Albumin 3.8 RPR Titer Nonreactive low potassium increased AST/BIli- alcoholuse a/p: AUD- continue detox protocol, pt states he has a h/o pancreatitis and does not want to restart drinking pt has prn meds- clonidine and vistaril ordered dietary requests done potassium replacement
[2018-08-04] MEDS: POTASSIUM CHLORIDE ORAL LIQUID 20 MEQ/15 ML PO SCH ×2 (13:01→22:04)
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
[2018-08-04] MEDS ORDERED: cloNIDine HCL 0.1 MG TABLET PO ONE (18:51)
[2018-08-04] MEDS ORDERED: QUEtiapine FUMARATE 200 MG TABLET PO SCH (22:00)
[2018-08-04] MEDS: MELATONIN 5 MG TABLETS PO PRN (22:04)
[2018-08-04] MEDS: THIAMINE HCL 100 MG TABLET (FP) PO SCH (22:04)
[2018-08-05] MEDS: metFORMIN HCL 500 MG TABLET (FP) PO SCH ×2 (06:32→17:30)
[2018-08-05] MEDS: chlordiazePOXIDE HCL 25 MG CAPSULE PO SCH ×3 (06:32→17:30)
[2018-08-05] MEDS: LIPASE/PROTEASE/AMYLASE 6,000 UNIT CAPSULE PO SCH ×3 (09:27→17:30)
[2018-08-05] MEDS: POTASSIUM CHLORIDE ORAL LIQUID 20 MEQ/15 ML PO SCH (10:23)
[2018-08-05] MEDS: PRENATAL VITAMINS W/ FOLIC ACID TABLET (FP) PO SCH (10:23)
[2018-08-05] MEDS: LISINOPRIL 20 MG TABLET (FP) PO SCH (10:23)
[2018-08-05] MEDS: PANTOPRAZOLE 40 MG TABLET (FP) PO SCH (10:23)
[2018-08-05] MEDS: levETIRAcetam 500 MG TABLET (FP) PO SCH (10:24)
[2018-08-05] MEDS: NICOTINE 14 MG/24 HOURS TOPICAL PATCH TD SCH (10:24)
--- NOTE | 2018-08-05 13:40 | PN ---
S CIWA - CIWA Score Nausea/Vomitin-No Nausea/No Vomiting Muscle Tremors: None Anxiety: 6 Agitation: 4-Moderately Restless Paroxysmal Sweats: No Perspiration Orientation: 0-Oriented Tacttile Disturbances: 0-None Auditory Disturbances: 0-None Visual Disturbances: 0-None Headache: 0-None Present CIWA-Ar Total Score: 10 BHS Progress Note (SOAP) Subjective: PT SEEN WHILE IN BED. APPEARED VERY IRRITABLE, ANXIOUS AND NOT READY TO ENGAGE IN ROUNDS STATING ' I'M TIRED, CAN'T GET NO SLEEP IN HERE". Objective: 08/05/18 13:42 Vital Signs - 24 hr 08/04/18 08/04/18 08/05/18 17:46 22:04 00:30 Temperature 97.8 F 97.1 F L Pulse Rate 100 H 108 H Respiratory 18 18 16 Rate Blood Pressure 156/107 H 133/93 08/05/18 08/05/18 08/05/18 03:30 06:17 09:25 Temperature 97.1 F L 96.6 F L Pulse Rate 63 78 Respiratory 18 18 18 Rate Blood Pressure 101/48 L 100/66 Laboratory Tests 08/03/18 08/04/18 08/04/18 16:26 06:34 07:00 WBC 6.3 RBC 5.24 Hgb 15.4 Hct 46.4 D MCV 88.6 MCH 29.3 MCHC 33.1 RDW 16.0 H Plt Count 175 D MPV 9.3 Sodium Potassium Chloride Carbon Dioxide Anion Gap BUN Creatinine Creat Clearance w eGFR POC Glucometer 113 120 Random Glucose Calcium Total Bilirubin AST ALT Alkaline Phosphatase Total Protein Albumin RPR Titer 08/04/18 08/04/18 08/04/18 07:00 07:00 16:32 WBC RBC Hgb Hct MCV MCH MCHC RDW Plt Count MPV Sodium 140 Potassium 3.0 L Chloride 101 Carbon Dioxide 27 Anion Gap 12 BUN 11 Creatinine 1.1 Creat Clearance w eGFR 76.18 POC Glucometer 118 Random Glucose 99 Calcium 9.6 Total Bilirubin 1.1 H AST 67 H ALT 60 Alkaline Phosphatase 59 Total Protein 7.6 Albumin 3.8 RPR Titer Nonreactive 08/05/18 06:31 WBC RBC Hgb Hct MCV MCH MCHC RDW Plt Count MPV Sodium Potassium Chloride Carbon Dioxide Anion Gap BUN Creatinine Creat Clearance w eGFR POC Glucometer 140 Random Glucose Calcium Total Bilirubin AST ALT Alkaline Phosphatase Total Protein Albumin RPR Titer LABS NOTED K+ =3.0 Assessment: 08/05/18 13:43 WITHDRAWAL SX HYPERGLYCEMIA ACUTE HYPOKALEMIA Plan: CONTINUE DETOX ON KDUR 20 MG PO BID DIETARY CONSULT ON TUESDAY. ???MAYBE DIET GINGERALE IF PT WANTS GINGERALE.
[2018-08-05 17:19] VITALS: BP 104/63; PULSE 89; TEMP 97.2
[2018-08-05] MEDS ORDERED: chlordiazePOXIDE HCL 10 MG CAPSULE PO SCH (23:00)
[2018-08-05] MEDS ORDERED: chlordiazePOXIDE HCL 10 MG CAPSULE PO PRN (23:00)
[2018-08-06] MEDS ORDERED: chlordiazePOXIDE HCL 10 MG CAPSULE PO SCH (23:00)
== END 2018-08-05 17:33 | disposition home or self-care (01) | DRG 775 ==
LOC: YASAS 12:51 → Y3N 15:52
PROVIDERS: ADMIT Surgery; ATTEND Surgery
PROC: HZ2ZZZZ Detoxification Services for Substance Abuse Treatment (ICD-10-PCS; principal; 2018-08-03)
DX: F10.230 Alcohol dependence with withdrawal, uncomplicated (principal); F12.20 Cannabis dependence, uncomplicated; F17.210 Nicotine dependence, cigarettes, uncomplicated; F19.24 Other psychoactive substance dependence with psychoactive substance-induced mood disorder; F31.9 Bipolar disorder, unspecified; K86.0 Alcohol-induced chronic pancreatitis; G47.00 Insomnia, unspecified; E87.6 Hypokalemia; K21.9 Gastro-esophageal reflux disease without esophagitis; R73.9 Hyperglycemia, unspecified; R94.5 Abnormal results of liver function studies; E86.0 Dehydration; Z86.69 Personal history of other diseases of the nervous system and sense organs; Z91.013 Allergy to seafood; Z88.8 Allergy status to other drugs, medicaments and biological substances; Z91.19 Patient's noncompliance with other medical treatment and regimen
CPT/HCPCS: 36415; 80053; 80177; 82962; 85027; 86593; J0735

== ENCOUNTER 2018-12-09 12:37 | Inpatient (IN) | payer OTHER ==
[2018-12-09 16:54] VITALS: BMI 30.2
--- NOTE | 2018-12-09 18:20 | HP ---
CIWA Score Nausea/Vomitin Muscle Tremors: 2 Anxiety: 2 Agitation: 2 Paroxysmal Sweats: 2 Orientation: 0-Oriented Tacttile Disturbances: 2-Mild Itch/Numbness/Burn Auditory Disturbances: 1-Very Mild Visual Disturbances: 1-Very Mild Sensitivity Headache: 2-Mild CIWA-Ar Total Score: 16 - Admission Criteria OASAS Guidelines: Admission for Medically Managed Detox: Requires at least one of the followin. CIWA greater than 12 2. Seizures within the past 24 hours 3. Delirium tremens within the past 24 hours 4. Hallucinations within the past 24 hours 5. Acute intervention needed for co occurring medical disorder 6. Acute intervention needed for co occurring psychiatric disorder 7. Severe withdrawal that cannot be handled at a lower level of care (continued vomiting, continued diarrhea, abnormal vital signs) requiring intravenous medication and/or fluids 8. Patient presents the following: CIWA greater than 12 Admission Criteria Met: Admission criteria met Admission ROS [facility] Chief Complaint: I need detox from alcohol and heroin Allergies/Adverse Reactions: Allergies Allergy/AdvReac Type Severity Reaction Status Date / Time raw vegetable Allergy Intermediate Hives Verified 08/04/18 11:58 No Known Drug Allergies Allergy Verified 08/03/18 14:18 shellfish derived AdvReac Severe Verified 08/03/18 14:18 tomato AdvReac Severe Verified 08/03/18 14:18 History of Present Illness: 33 y/o man with multiple admissions presents for detox from alcohol and heroin, he however does not test positive for heroin. Patient is informed he will receive detox from alcohol Exam Limitations: No Limitations - Ebola screening Have you traveled outside of the country in the last 21 days: No (N) Have you had contact with anyone from an Ebola affected area: No Have you been sick,other than usual withdrawal symptoms: No Do you have a fever: No - Review of Systems Constitutional: Chills, Loss of Appetite, Changes in sleep EENT: reports: Blurred Vision Respiratory: reports: No Symptoms reported Cardiac: reports: No Symptoms Reported GI: reports: Diarrhea, Poor Appetite, Poor Fluid Intake, Abdominal cramping : reports: No Symptoms Reported Musculoskeletal: reports: Back Pain, Joint Pain, Muscle Pain, Muscle Weakness Integumentary: reports: Flushing Neuro: reports: Headache, Numbness, Tremors Endocrine: reports: No Symptoms Reported Hematology: reports: No Symptoms Reported Psychiatric: reports: Anxious, Depressed Other Systems: Reviewed and Negative Patient History - Patient Medical History Hx Anemia: No Hx Asthma: Yes Hx Chronic Obstructive Pulmonary Disease (COPD): No Hx Cancer: No Hx Cardiac Disorders: No Hx Congestive Heart Failure: No Hx Hypertension: Yes (on meds) Hx Hypercholesterolemia: Yes Hx Pacemaker: No HX Cerebrovascular Accident: No Hx Seizures: Yes Hx Dementia: No Hx Diabetes: Yes Hx Gastrointestinal Disorders: No Hx Liver Disease: No Hx Genitourinary Disorders: No Hx Sexually Transmitted Disorders: No Hx Renal Disease (ESRD): No Hx Thyroid Disease: No Hx Human Immunodeficiency Virus (HIV): No Hx Hepatitis C: No Hx Depression: Yes Hx Suicide Attempt: No Hx Bipolar Disorder: Yes Hx Schizophrenia: No - Patient Surgical History Past Surgical History: Yes Hx Neurologic Surgery: No Hx Cataract Extraction: No Hx Cardiac Surgery: No Hx Lung Surgery: No Hx Breast Surgery: No Hx Breast Biopsy: No Hx Abdominal Surgery: No Hx Appendectomy: No Hx Cholecystectomy: No Hx Genitourinary Surgery: No Hx Section: No Hx Orthopedic Surgery: No Other Surgical History: abcess removal left side head Anesthesia Reaction: No - PPD History Previous Implant?: Yes Documented Results: Negative w/proof Implanted On Prior R Admission?: Yes Date: 06/02/18 Results: 0 mm. PPD to be Administered?: No - Smoking Cessation Smoking history: Current every day smoker Have you smoked in the past 12 months: Yes Aproximately how many cigarettes per day: 20 Cigars Per Day: 0 Hx Chewing Tobacco Use: No Initiated information on smoking cessation: Yes 'Breaking Loose' booklet given: 12/09/18 - Substances abused Alcohol Substance route: Oral Frequency: Daily Amount used: 2 L vodka Age of first use: 14 Date of last use: 08/03/18 Marijuana/Hashish Substance route: Smoking Frequency: 3-6 times per week Amount used: 15 blunts Age of first use: 14 Date of last use: 12/04/18 Heroin Other (specify): sniff Amount used: 14 to 16 bags/ day Age of first use: 32 Date of last use: 12/09/18 Family Disease History - Family Disease History Family Disease History: Diabetes: Father (heroin dependence ), Mother, Brother, Heart Disease: Brother, CA: Grandparent, Respiratory: Grandparent, Father, Other : Father Admission Physical Exam [facility] - Vital Signs Vital Signs: Vital Signs - 24 hr 12/09/18 16:46 Temperature 97.9 F Pulse Rate 96 H Respiratory 18 Rate Blood Pressure 123/77 - Physical General Appearance: Yes: No Apparent Distress HEENTM: Yes: Hearing grossly Normal, Normal ENT Inspection, Normal Voice Respiratory: Yes: Chest Non-Tender, Lungs Clear Neck: Yes: No masses,lesions,Nodules, Supple Breast: Yes: Breast Exam Deferred Cardiology: Yes: Regular Rhythm, Regular Rate, S1, S2 Abdominal: Yes: Normal Bowel Sounds, Non Tender, Soft Genitourinary: Yes: Within Normal Limits Back: Yes: Normal Inspection, CVA Tenderness Extremities: Yes: Normal Range of Motion, Tremors Neurological: Yes: wood bucker II-XII NML intact, Fully Oriented, Normal Mood/Affect, Normal Response Integumentary: Yes: [place] Lymphatic: Yes: Within Normal Limits - Diagnostic (1) Alcohol dependence with uncomplicated withdrawal Current Visit: Yes Status: Acute (2) Asthma Current Visit: No Status: Chronic Qualifiers: Asthma severity: mild Asthma persistence: intermittent Asthma complication type: uncomplicated Qualified Code(s): J45.20 - Mild intermittent asthma, uncomplicated (3) DM type 2 (diabetes mellitus, type 2) Current Visit: No Status: Chronic Qualifiers: Diabetes mellitus intermediate project manager insulin use: without intermediate project manager use Diabetes mellitus complication status: without complication Qualified Code(s): E11.9 - Type 2 diabetes mellitus without complications (4) Essential hypertension Current Visit: Yes Status: Chronic (5) Marijuana dependence Current Visit: Yes Status: Acute (6) Nicotine dependence Current Visit: Yes Status: Acute Qualifiers: Nicotine product type: cigarettes Substance use status: uncomplicated Qualified Code(s): F17.210 - Nicotine dependence, cigarettes, uncomplicated (7) Seizure disorder Current Visit: No Status: Chronic Comment: SINCE 2009 LAST EPISODE 2014 BING Cleared for Admission [facility] - Detox or Rehab [facility] Level of Care: Medically Managed Detox Regimen/Protocol: Librium Breathalyzer - Breathalyzer Breathalyzer: 0.107 Urine Drug Screen - Test Device Lot number: [id number] Expiration date: 09/01/20 - Control Is test valid?: Yes - Results Drug screen NEGATIVE: No Urine drug screen results: THC-Marijuana, MTD-Methadone, BZO-Benzodiazepines Inpatient Rehab Admission - Rehab Decision to Admit Inpatient rehab admission?: No
[2018-12-09] MEDS ORDERED: BISMUTH SUBSALICYLATE 524 MG/30 ML UD PO PRN (18:29)
[2018-12-09] MEDS ORDERED: IBUPROFEN 400 MG TABLET (FP) PO PRN (18:29)
[2018-12-09] MEDS ORDERED: MAGNESIUM CITRATE 300 ML BOTTLE PO PRN (18:29)
[2018-12-09] MEDS ORDERED: hydrOXYzine PAMOATE 25 MG CAPSULE (FP) PO PRN (18:29)
[2018-12-09] MEDS ORDERED: NICOTINE POLACRILEX 2 MG GUM BUC PRN (18:29)
[2018-12-09] MEDS ORDERED: ACETAMINOPHEN 325 MG TABLET (FP) PO PRN ×2 (18:29)
[2018-12-09] MEDS ORDERED: MAGNESIUM HYDROX 2400MG/30ML ORAL SUSPENSION 30 ML CUP PO PRN (18:29)
[2018-12-09] MEDS ORDERED: MENTHOL/PHENOL 1 EACH UD MM PRN (18:29)
[2018-12-09] MEDS ORDERED: MELATONIN 5 MG TABLETS PO PRN (18:29)
[2018-12-09] MEDS ORDERED: METHOCARBAMOL 500 MG TABLET PO PRN (18:29)
[2018-12-09] MEDS ORDERED: ALBUTEROL SO4 8 GM HFA INHALER IH PRN (18:31)
[2018-12-09] MEDS: NICOTINE 14 MG/24 HOURS TOPICAL PATCH TD SCH (19:46)
[2018-12-09] MEDS: LISINOPRIL 20 MG TABLET (FP) PO SCH (19:59)
--- NOTE | 2018-12-09 21:03 | PN ---
BHS Progress Note Note: found w/
--- NOTE | 2018-12-09 21:04 | DS ---
[facility] Detox Discharge Summary Admission Date: 12/09/18 Discharge Date: 12/09/18 - Physical Exam Results Vital Signs: Vital Signs Temperature 97.9 F 12/09/18 16:46 Pulse Rate 96 H 12/09/18 16:46 Respiratory Rate 18 12/09/18 16:46 Blood Pressure 123/77 12/09/18 16:46 O2 Sat by Pulse Oximetry (%) - Treatment Hospital Course: Discharged Condition Good - Medication Discharge Medications: Ambulatory Orders Quetiapine Fumarate [Seroquel -] 500 mg PO HS #30 tablet 05/31/18 Albuterol Sulfate Inhaler - [Ventolin HFA Inhaler -] 2 puff IH Q4H PRN #1 inhaler 06/02/18 Lisinopril [Prinivil] 40 mg PO DAILY #30 tablet 06/02/18 levETIRAcetam [Keppra -] 500 mg PO BID #60 tablet 06/02/18
[2018-12-09] MEDS ORDERED: QUEtiapine FUMARATE 100 MG TABLET (FP) PO ONE (22:00)
[2018-12-09] MEDS ORDERED: QUEtiapine FUMARATE 400 MG TABLET PO ONE (22:00)
[2018-12-09] MEDS: levETIRAcetam 500 MG TABLET (FP) PO SCH (22:15)
[2018-12-09] MEDS: THIAMINE HCL 100 MG TABLET (FP) PO SCH (22:15)
[2018-12-09] MEDS: chlordiazePOXIDE HCL 25 MG CAPSULE PO SCH (22:16)
[2018-12-10] MEDS: chlordiazePOXIDE HCL 25 MG CAPSULE PO SCH ×4 (06:15→22:42)
[2018-12-10] MEDS: PRENATAL VITAMINS W/ FOLIC ACID TABLET (FP) PO SCH (11:09)
[2018-12-10] MEDS: levETIRAcetam 500 MG TABLET (FP) PO SCH ×2 (11:09→22:41)
[2018-12-10] MEDS: NICOTINE 14 MG/24 HOURS TOPICAL PATCH TD SCH (11:10)
[2018-12-10] MEDS: LISINOPRIL 20 MG TABLET (FP) PO SCH (11:10)
[2018-12-10] MEDS: chlordiazePOXIDE HCL 10 MG CAPSULE PO PRN ×2 (11:13→19:27)
--- NOTE | 2018-12-10 11:47 | PN ---
BHS Progress Note (SOAP) Subjective: Refused to speak with resume writer Objective: 12/10/18 11:42 Last Vital Signs Temp Pulse Resp BP Pulse Ox 96.4 F L 76 20 143/101 H 12/10/18 06:23 12/10/18 06:23 12/10/18 06:23 12/09/18 21:55 Elevated b/p 143/101 (has htn, on medication) No admission lab result available (patient refused lab draw) Assessment: 12/10/18 11:44 Withdrawal sxs Uncontrolled htn noted Plan: Continue detox Encouraged PO water intake Admission CBC and CMP reordered in AM (patient previously refused lab draw) HTN: continue lisinopril, encourage low sodium diet
[2018-12-10] MEDS ORDERED: chlordiazePOXIDE HCL 25 MG CAPSULE PO ONE (16:52)
[2018-12-10] MEDS: THIAMINE HCL 100 MG TABLET (FP) PO SCH (22:42)
[2018-12-10] MEDS ORDERED: QUEtiapine FUMARATE 100 MG TABLET (FP) PO ONE (23:21)
[2018-12-11] MEDS: chlordiazePOXIDE 5 MG CAPSULE PO SCH ×3 (05:56→21:04)
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
--- NOTE | 2018-12-11 08:37 | PN ---
BHS CIWA - CIWA Score Nausea/Vomitin-Mild Nausea/No Vomiting Muscle Tremors: 3 Anxiety: 2 Agitation: 2 Paroxysmal Sweats: No Perspiration Orientation: 0-Oriented Tacttile Disturbances: 0-None Auditory Disturbances: 0-None Visual Disturbances: 0-None Headache: 2-Mild CIWA-Ar Total Score: 10 BHS Progress Note (SOAP) Subjective: Patient is restless and anxious and still complaining of some withdrawals. Objective: 12/11/18 08:34 /BP:103/59 P:75 R:18 T:97.5 Patient refused labs on admission. Assessment: 12/11/18 08:35 Alcohol Dependence with withdrawals Opioid Dependence Plan: 1. Alcohol Dependence with withdrawals: Patient encouraged to increase PO intake, be patient with protocol and he will feel better. Will input for CBC an CMP today and RPR. 2. Mood disorder secondary to substances: Psychiatrist to see patient today and see if appropriate to restart Seroquel.
[2018-12-11] MEDS: levETIRAcetam 500 MG TABLET (FP) PO SCH ×2 (10:38→22:07)
[2018-12-11] MEDS: PRENATAL VITAMINS W/ FOLIC ACID TABLET (FP) PO SCH (10:38)
[2018-12-11] MEDS: LISINOPRIL 20 MG TABLET (FP) PO SCH (10:38)
[2018-12-11] MEDS: NICOTINE 14 MG/24 HOURS TOPICAL PATCH TD SCH (10:39)
[2018-12-11] MEDS: chlordiazePOXIDE HCL 10 MG CAPSULE PO PRN ×2 (10:42→23:22)
[2018-12-11 12:48] LABS: BASO % 0.4 % (0-2.0); EOS % 5.7 % (0-4.5); HEMATOCRIT 41.2 % (35.4-49); HEMOGLOBIN 13.8 GM/dL (11.7-16.9); LYMPH % 33.5 % (8-40); MCH 30.9 pg (25.7-33.7); MCHC 33.6 g/dl (32.0-35.9); MEAN PLT VOLUME 9.4 fl (7.5-11.1); MONO % 8.1 % (3.8-10.2); NEUT % 52.3 % (42.8-82.8); PLATELET COUNT 219 K/MM3 (134-434); RBC 4.47 M/mm3 (4.00-5.60); RDW 17.5 % (11.9-15.9); WHITE BLOOD COUNT 5.6 K/mm3 (4.0-10.0)
[2018-12-11 12:50] LABS: ALBUMIN 3.8 g/dl (3.4-5.0); BILIRUBIN,TOTAL 0.3 mg/dL (0.2-1); BLOOD UREA NITROGEN 18.9 mg/dL (7-18); CALCIUM 9.6 mg/dL (8.5-10.1); CREATININE 1.3 mg/dL (0.55-1.3); POTASSIUM 4.1 mmol/L (3.5-5.1); TOT PROT 7.6 g/dl (6.4-8.2)
[2018-12-11] MEDS: THIAMINE HCL 100 MG TABLET (FP) PO SCH (22:07)
[2018-12-11] MEDS: QUEtiapine FUMARATE 200 MG TABLET PO SCH (22:07)
[2018-12-11] MEDS: MAG HYDROX/AL HYDROX/SIMETH 30 ML UNIT-DOSE CUP PO PRN (23:22)
[2018-12-12] MEDS ORDERED: chlordiazePOXIDE HCL 10 MG CAPSULE PO PRN
[2018-12-12] MEDS: chlordiazePOXIDE HCL 10 MG CAPSULE PO SCH ×3 (05:41→22:04)
--- NOTE | 2018-12-12 09:34 | PN ---
S CIWA - CIWA Score Nausea/Vomitin-Mild Nausea/No Vomiting Muscle Tremors: 1-None Visible, but [place] Anxiety: 2 Agitation: 2 Paroxysmal Sweats: No Perspiration Orientation: 0-Oriented Tacttile Disturbances: 0-None Auditory Disturbances: 0-None Visual Disturbances: 1-Very Mild Sensitivity Headache: 1-Very Mild CIWA-Ar Total Score: 8 BHS Progress Note (SOAP) Subjective: alert,irritable,anxious,interrupted sleep,pain in the body Objective: 12/12/18 09:33 Vital Signs Temperature 98.3 F 12/12/18 09:33 Pulse Rate 102 H 12/12/18 09:33 Respiratory Rate 18 12/12/18 09:33 Blood Pressure 104/78 12/12/18 09:33 O2 Sat by Pulse Oximetry (%) Assessment: 12/12/18 09:33 withdrawal symptom Plan: continue detox librium regimen,discharge in am
[2018-12-12] MEDS: LISINOPRIL 20 MG TABLET (FP) PO SCH (10:26)
[2018-12-12] MEDS: levETIRAcetam 500 MG TABLET (FP) PO SCH ×2 (10:27→22:04)
[2018-12-12] MEDS: PRENATAL VITAMINS W/ FOLIC ACID TABLET (FP) PO SCH (10:27)
[2018-12-12] MEDS: NICOTINE 14 MG/24 HOURS TOPICAL PATCH TD SCH (10:33)
[2018-12-12] MEDS: MAG HYDROX/AL HYDROX/SIMETH 30 ML UNIT-DOSE CUP PO PRN (11:29)
[2018-12-12] MEDS: THIAMINE HCL 100 MG TABLET (FP) PO SCH (22:04)
[2018-12-12] MEDS: QUEtiapine FUMARATE 200 MG TABLET PO SCH (22:04)
[2018-12-13] MEDS ORDERED: chlordiazePOXIDE HCL 10 MG CAPSULE PO ONE (05:00)
--- NOTE | 2018-12-13 08:47 | DS ---
[facility] Detox Discharge Summary Admission Date: 12/09/18 Discharge Date: 12/13/18 - History Present History: Alcohol Dependence, Cannabis Dependence, Opioid Dependence, Sedative Dependence - Physical Exam Results Vital Signs: Vital Signs Temperature 97.2 F L 12/13/18 07:18 Pulse Rate 85 12/13/18 07:18 Respiratory Rate 18 12/13/18 07:18 Blood Pressure 100/65 12/13/18 07:18 O2 Sat by Pulse Oximetry (%) Pertinent Admission Physical Exam Findings: pt arrived in withdrawals Laboratory Tests 12/11/18 12/11/18 12/11/18 09:05 09:05 16:34 WBC 5.6 RBC 4.47 Hgb 13.8 Hct 41.2 MCV 92.0 MCH 30.9 MCHC 33.6 RDW 17.5 H Plt Count 219 D MPV 9.4 Absolute Neuts (auto) 2.9 Neutrophils % 52.3 Lymphocytes % 33.5 Monocytes % 8.1 Eosinophils % 5.7 H Basophils % 0.4 Nucleated RBC % 0 Sodium 137 Potassium 4.1 Chloride 104 Carbon Dioxide 24 Anion Gap 9 BUN 18.9 H Creatinine 1.3 Est GFR (CKD-EPI)AfAm 81.93 Est GFR (CKD-EPI)NonAf 70.69 POC Glucometer 173 Random Glucose 171 H Calcium 9.6 Total Bilirubin 0.3 AST 41 H ALT 98 H Alkaline Phosphatase 65 Total Protein 7.6 Albumin 3.8 RPR Titer 12/12/18 12/12/18 12/13/18 08:00 16:37 05:47 WBC RBC Hgb Hct MCV MCH MCHC RDW Plt Count MPV Absolute Neuts (auto) Neutrophils % Lymphocytes % Monocytes % Eosinophils % Basophils % Nucleated RBC % Sodium Potassium Chloride Carbon Dioxide Anion Gap BUN Creatinine Est GFR (CKD-EPI)AfAm Est GFR (CKD-EPI)NonAf POC Glucometer 137 179 Random Glucose Calcium Total Bilirubin AST ALT Alkaline Phosphatase Total Protein Albumin RPR Titer Nonreactive today pt is aaox3 ambulating no acute distress no s/s of withdrawals - Treatment Hospital Course: Detox Protocol Followed, Detoxed Safely, Responded well, Discharged Condition Good, Rehab Referral Accepted Patient has Accepted a Rehab Referral to: pt referred to [facility] rehab - Medication Discharge Medications: Ambulatory Orders Quetiapine Fumarate [Seroquel -] 500 mg PO HS #30 tablet 05/31/18 Albuterol Sulfate Inhaler - [Ventolin HFA Inhaler -] 2 puff IH Q4H PRN #1 inhaler 06/02/18 Lisinopril [Prinivil] 40 mg PO DAILY #30 tablet 06/02/18 levETIRAcetam [Keppra -] 500 mg PO BID #60 tablet 06/02/18 Metformin HCl [Glucophage] 500 mg PO BID 12/11/18 - Diagnosis (1) Cannabis dependence Current Visit: Yes Status: Chronic (2) Substance induced mood disorder Current Visit: Yes Status: Chronic (3) Substance-induced sleep disorder Current Visit: Yes Status: Chronic (4) Bipolar disorder Current Visit: Yes Status: Chronic (5) PTSD (post-traumatic stress disorder) Current Visit: Yes Status: Chronic (6) Alcohol dependence with uncomplicated withdrawal Current Visit: Yes Status: Chronic (7) Anxiety and depression Current Visit: No Status: Acute (8) Opioid dependence with withdrawal Current Visit: Yes Status: Chronic (9) Substance induced mood disorder Current Visit: No Status: Acute (10) Uncomplicated sedative, hypnotic, or anxiolytic withdrawal Current Visit: Yes Status: Chronic (11) Asthma Current Visit: No Status: Chronic Qualifiers: Asthma severity: mild Asthma persistence: intermittent Asthma complication type: uncomplicated Qualified Code(s): J45.20 - Mild intermittent asthma, uncomplicated (12) Bipolar disorder Current Visit: No Status: Chronic Qualifiers: Active/Remission status: remission status unspecified Qualified Code(s): F31.9 - Bipolar disorder, unspecified (13) Cannabis dependence Current Visit: No Status: Chronic (14) DM type 2 (diabetes mellitus, type 2) Current Visit: Yes Status: Chronic Qualifiers: Diabetes mellitus halfway insulin use: without halfway use Diabetes mellitus complication status: without complication Qualified Code(s): E11.9 - Type 2 diabetes mellitus without complications (15) Depression (emotion) Current Visit: No Status: Chronic Qualifiers: Depression Type: dysthymia Qualified Code(s): F34.1 - Dysthymic disorder (16) Essential hypertension Current Visit: Yes Status: Chronic (17) GERD (gastroesophageal reflux disease) Current Visit: Yes Status: Chronic Qualifiers: Esophagitis presence: without esophagitis Qualified Code(s): K21.9 - Gastro -esophageal reflux disease without esophagitis (18) Hypercholesterolemia Current Visit: Yes Status: Chronic (19) Hypertension Current Visit: Yes Status: Chronic Qualifiers: Hypertension type: essential hypertension (20) Insomnia Current Visit: No Status: Chronic Qualifiers: Insomnia type: unspecified Qualified Code(s): G47.00 - Insomnia, unspecified (21) Nicotine dependence Current Visit: Yes Status: Chronic Qualifiers: Nicotine product type: cigarettes Substance use status: uncomplicated Qualified Code(s): F17.210 - Nicotine dependence, cigarettes, uncomplicated - AMA Did Patient Leave Against Medical Advice: No
[2018-12-13 09:29] VITALS: BP 105/76; PULSE 98; TEMP 98
[2018-12-13] MEDS: LISINOPRIL 20 MG TABLET (FP) PO SCH (11:03)
[2018-12-13] MEDS: levETIRAcetam 500 MG TABLET (FP) PO SCH (11:03)
[2018-12-13] MEDS: PRENATAL VITAMINS W/ FOLIC ACID TABLET (FP) PO SCH (11:03)
[2018-12-13] MEDS: NICOTINE 14 MG/24 HOURS TOPICAL PATCH TD SCH (11:03)
== END 2018-12-13 11:18 | disposition other institution (70) | DRG 773 ==
LOC: YASAS 12:37 → Y6N 18:27
PROVIDERS: ADMIT Surgery; ATTEND Surgery
PROC: HZ2ZZZZ Detoxification Services for Substance Abuse Treatment (ICD-10-PCS; principal; 2018-12-09)
DX: F11.23 Opioid dependence with withdrawal (principal); F10.230 Alcohol dependence with withdrawal, uncomplicated; F13.230 Sedative, hypnotic or anxiolytic dependence with withdrawal, uncomplicated; F12.20 Cannabis dependence, uncomplicated; F17.210 Nicotine dependence, cigarettes, uncomplicated; F19.24 Other psychoactive substance dependence with psychoactive substance-induced mood disorder; F19.282 Other psychoactive substance dependence with psychoactive substance-induced sleep disorder; F31.9 Bipolar disorder, unspecified; F43.10 Post-traumatic stress disorder, unspecified; F41.9 Anxiety disorder, unspecified; F34.1 Dysthymic disorder; I10 Essential (primary) hypertension; J45.20 Mild intermittent asthma, uncomplicated; E11.9 Type 2 diabetes mellitus without complications; K21.9 Gastro-esophageal reflux disease without esophagitis; E78.5 Hyperlipidemia, unspecified; G47.00 Insomnia, unspecified; G40.909 Epilepsy, unspecified, not intractable, without status epilepticus; Z91.013 Allergy to seafood; Z79.84 Long term (current) use of oral hypoglycemic drugs
CPT/HCPCS: 36415; 80053; 82962; 85025; 86593

== ENCOUNTER 2018-12-13 11:29 | Inpatient (IN) | payer OTHER | END 2018-12-19 15:35 | disposition left against medical advice (07) | LOC: YASAS 11:29 → Y3W 11:30 ==

== ENCOUNTER 2020-04-25 11:05 | Inpatient (IN) | payer BC ==
[2020-04-25 13:08] VITALS: BMI 33.9
[2020-04-25] MEDS ORDERED: MENTHOL/PHENOL 1 EACH UD MM PRN (13:23)
[2020-04-25] MEDS ORDERED: MAGNESIUM CITRATE 300 ML BOTTLE PO PRN (13:23)
[2020-04-25] MEDS ORDERED: MAG HYDROX/AL HYDROX/SIMETH 30 ML UNIT-DOSE CUP PO PRN (13:23)
[2020-04-25] MEDS ORDERED: NICOTINE POLACRILEX 2 MG GUM BUC PRN (13:23)
[2020-04-25] MEDS ORDERED: ACETAMINOPHEN 325 MG TABLET (FP) PO PRN (13:23)
[2020-04-25] MEDS ORDERED: IBUPROFEN 400 MG TABLET (FP) PO PRN (13:23)
[2020-04-25] MEDS ORDERED: BISMUTH SUBSALICYLATE 524 MG/30 ML UD PO PRN (13:23)
[2020-04-25] MEDS ORDERED: MAGNESIUM HYDROX 2400MG/30ML ORAL SUSPENSION 30 ML CUP PO PRN (13:23)
[2020-04-25] MEDS ORDERED: ONDANSETRON *ODT* 4 MG TABLET SL PRN (13:23)
[2020-04-25] MEDS ORDERED: ALBUTEROL SO4 HFA INHALER IH PRN (13:28)
[2020-04-25] MEDS: chlordiazePOXIDE HCL 25 MG CAPSULE PO PRN (13:59)
[2020-04-25] MEDS: PRENATAL VITAMINS W/ FOLIC ACID TABLET (FP) PO SCH (13:59)
[2020-04-25] MEDS: hydrOXYzine PAMOATE 25 MG CAPSULE (FP) PO SCH ×3 (14:04→22:05)
[2020-04-25] MEDS: LIPASE/PROTEASE/AMYLASE 6,000 UNIT CAPSULE PO SCH (16:54)
[2020-04-25] MEDS: chlordiazePOXIDE HCL 25 MG CAPSULE PO SCH ×2 (16:55→22:06)
[2020-04-25] MEDS: metFORMIN HCL 500 MG TABLET (FP) PO SCH (16:55)
[2020-04-25 17:19] LABS: HEMATOCRIT 37.7 % (35.4-49); HEMOGLOBIN 12.7 GM/dL (11.7-16.9); MCH 27.9 pg (25.7-33.7); MCHC 33.7 g/dl (32.0-35.9); MEAN CELL VOLUME 82.8 fl (80-96); MEAN PLT VOLUME 8.5 fl (7.5-11.1); PLATELET COUNT 227 K/MM3 (134-434); RBC 4.55 M/mm3 (4.00-5.60); RDW 15.5 % (11.9-15.9); WHITE BLOOD COUNT 8.2 K/mm3 (4.0-10.0)
[2020-04-25 17:22] LABS: POTASSIUM 3.7 mmol/L (3.5-5.1)
[2020-04-25 17:28] LABS: BLOOD UREA NITROGEN 15.1 mg/dL (7-18); CALCIUM 9.3 mg/dL (8.5-10.1); CREATININE 1.3 mg/dL (0.55-1.3)
[2020-04-25 17:29] LABS: ALBUMIN 4.4 g/dl (3.4-5.0)
[2020-04-25 17:33] LABS: BILIRUBIN,TOTAL 0.6 mg/dL (0.2-1); TOT PROT 8.5 g/dl (6.4-8.2)
[2020-04-25] MEDS ORDERED: [UNRECOGNIZED DRUG - OTHER] PO SCH (22:00)
[2020-04-25] MEDS ORDERED: PROTEASE PO SCH (22:00)
[2020-04-25] MEDS ORDERED: MELATONIN 5 MG TABLETS PO SCH (22:00)
[2020-04-25] MEDS ORDERED: AMYLASE PO SCH (22:00)
[2020-04-25] MEDS ORDERED: LIPASE PO SCH (22:00)
[2020-04-25] MEDS: traZODone HCL 50 MG TABLET (FP) PO SCH (22:05)
[2020-04-25] MEDS: QUEtiapine FUMARATE 400 MG TABLET PO SCH (22:05)
[2020-04-25] MEDS: INSULIN (LEVEMIR) 100 UNITS/ML UNITS SQ SCH (22:07)
[2020-04-25] MEDS: THIAMINE HCL 100 MG TABLET (FP) PO SCH (22:08)
[2020-04-25] MEDS: AMITRIPTYLINE HCL 25 MG TABLET PO SCH (23:27)
[2020-04-26] MEDS: metFORMIN HCL 500 MG TABLET (FP) PO SCH ×2 (07:17→17:01)
[2020-04-26] MEDS: hydrOXYzine PAMOATE 25 MG CAPSULE (FP) PO SCH ×5 (07:18→21:58)
[2020-04-26] MEDS: LIPASE/PROTEASE/AMYLASE 6,000 UNIT CAPSULE PO SCH ×3 (07:18→17:00)
[2020-04-26] MEDS: chlordiazePOXIDE HCL 25 MG CAPSULE PO SCH ×4 (07:18→22:00)
[2020-04-26] MEDS: PRENATAL VITAMINS W/ FOLIC ACID TABLET (FP) PO SCH (11:26)
[2020-04-26] MEDS: NICOTINE 21 MG/24 HOURS TOPICAL PATCH TD SCH (11:26)
[2020-04-26] MEDS: LISINOPRIL 20 MG TABLET PO SCH (11:31)
[2020-04-26] MEDS: INSULIN (LEVEMIR) 100 UNITS/ML UNITS SQ SCH (21:55)
[2020-04-26] MEDS: QUEtiapine FUMARATE 400 MG TABLET PO SCH (21:58)
[2020-04-26] MEDS: traZODone HCL 50 MG TABLET (FP) PO SCH (21:59)
[2020-04-26] MEDS: AMITRIPTYLINE HCL 25 MG TABLET PO SCH (21:59)
[2020-04-26] MEDS: THIAMINE HCL 100 MG TABLET (FP) PO SCH (22:00)
[2020-04-27] MEDS: LIPASE/PROTEASE/AMYLASE 6,000 UNIT CAPSULE PO SCH ×3 (07:33→18:14)
[2020-04-27] MEDS: chlordiazePOXIDE HCL 25 MG CAPSULE PO SCH ×4 (07:33→23:14)
[2020-04-27] MEDS: hydrOXYzine PAMOATE 25 MG CAPSULE (FP) PO SCH ×2 (07:34→09:40)
[2020-04-27] MEDS: metFORMIN HCL 500 MG TABLET (FP) PO SCH ×2 (07:34→16:53)
[2020-04-27] MEDS: LISINOPRIL 20 MG TABLET PO SCH (09:37)
[2020-04-27] MEDS: chlordiazePOXIDE HCL 25 MG CAPSULE PO PRN (09:38)
[2020-04-27] MEDS: PRENATAL VITAMINS W/ FOLIC ACID TABLET (FP) PO SCH (09:40)
[2020-04-27] MEDS: NICOTINE 21 MG/24 HOURS TOPICAL PATCH TD SCH (09:40)
[2020-04-27] MEDS: METHOCARBAMOL 500 MG TABLET PO PRN ×2 (12:41→22:43)
[2020-04-27] MEDS: LIDOCAINE VISCOUS 2% ORAL/TOP 20 ML UNIT-DOSE CUP MM PRN ×2 (13:24→20:07)
[2020-04-27] MEDS ORDERED: CEPHALEXIN MONOHYDRATE 500 MG CAPSULE (UD) PO ONE (13:27)
[2020-04-27] MEDS ORDERED: IBUPROFEN 400 MG TABLET (FP) PO ONE (13:33)
[2020-04-27] MEDS: CHLORHEXIDINE GLUCONATE 0.12% 15ML CUP MM SCH ×2 (16:49→23:38)
[2020-04-27] MEDS: CEPHALEXIN MONOHYDRATE 500 MG CAPSULE (UD) PO SCH ×2 (18:14→23:45)
[2020-04-27] MEDS: ACETAMINOPHEN 325 MG TABLET (FP) PO PRN (20:03)
[2020-04-27] MEDS: AMITRIPTYLINE HCL 25 MG TABLET PO SCH (22:44)
[2020-04-27] MEDS: THIAMINE HCL 100 MG TABLET (FP) PO SCH (22:44)
[2020-04-27] MEDS: QUEtiapine FUMARATE 400 MG TABLET PO SCH (22:44)
[2020-04-27] MEDS: INSULIN (LEVEMIR) 100 UNITS/ML UNITS SQ SCH (22:44)
[2020-04-27] MEDS: traZODone HCL 100 MG TABLET (FP) PO SCH (22:44)
[2020-04-28] MEDS ORDERED: chlordiazePOXIDE HCL 10 MG CAPSULE PO PRN
[2020-04-28] MEDS: chlordiazePOXIDE HCL 10 MG CAPSULE PO SCH ×4 (07:25→22:15)
[2020-04-28] MEDS: metFORMIN HCL 500 MG TABLET (FP) PO SCH ×2 (07:28→16:55)
[2020-04-28] MEDS: CEPHALEXIN MONOHYDRATE 500 MG CAPSULE (UD) PO SCH ×4 (07:28→23:05)
[2020-04-28] MEDS: LIPASE/PROTEASE/AMYLASE 6,000 UNIT CAPSULE PO SCH ×3 (07:29→16:57)
[2020-04-28] MEDS: METHOCARBAMOL 500 MG TABLET PO PRN ×3 (08:48→23:07)
[2020-04-28] MEDS: LIDOCAINE VISCOUS 2% ORAL/TOP 20 ML UNIT-DOSE CUP MM PRN (08:49)
[2020-04-28] MEDS ORDERED: IBUPROFEN 600 MG TABLET (FP) PO PRN (09:05)
[2020-04-28] MEDS: CHLORHEXIDINE GLUCONATE 0.12% 15ML CUP MM SCH ×2 (10:14→22:17)
[2020-04-28] MEDS: PRENATAL VITAMINS W/ FOLIC ACID TABLET (FP) PO SCH (10:15)
[2020-04-28] MEDS: NICOTINE 21 MG/24 HOURS TOPICAL PATCH TD SCH (10:15)
[2020-04-28] MEDS: LISINOPRIL 20 MG TABLET PO SCH (10:15)
[2020-04-28] MEDS: IBUPROFEN 600 MG TABLET (FP) PO PRN ×3 (10:16→23:10)
[2020-04-28] MEDS ORDERED: AMOX TR/POT CLAV 875MG/125MG TABLETS (FP) PO SCH (17:30)
[2020-04-28] MEDS: ACETAMINOPHEN 325 MG TABLET (FP) PO PRN (19:51)
[2020-04-28] MEDS: AMITRIPTYLINE 100 MG PO SCH (22:15)
[2020-04-28] MEDS: THIAMINE HCL 100 MG TABLET (FP) PO SCH (22:16)
[2020-04-28] MEDS: traZODone HCL 100 MG TABLET (FP) PO SCH (22:16)
[2020-04-28] MEDS: INSULIN (LEVEMIR) 100 UNITS/ML UNITS SQ SCH (22:17)
[2020-04-28] MEDS: QUEtiapine FUMARATE 400 MG TABLET PO SCH (23:07)
[2020-04-29] MEDS: chlordiazePOXIDE HCL 10 MG CAPSULE PO SCH ×2 (06:23→18:51)
[2020-04-29] MEDS: CEPHALEXIN MONOHYDRATE 500 MG CAPSULE (UD) PO SCH (06:23)
[2020-04-29] MEDS: metFORMIN HCL 500 MG TABLET (FP) PO SCH ×2 (06:23→18:00)
[2020-04-29] MEDS: LIPASE/PROTEASE/AMYLASE 6,000 UNIT CAPSULE PO SCH ×3 (08:14→18:45)
[2020-04-29] MEDS: CHLORHEXIDINE GLUCONATE 0.12% 15ML CUP MM SCH ×2 (10:05→22:04)
[2020-04-29] MEDS: LISINOPRIL 20 MG TABLET PO SCH (10:05)
[2020-04-29] MEDS: PRENATAL VITAMINS W/ FOLIC ACID TABLET (FP) PO SCH (10:05)
[2020-04-29] MEDS: NICOTINE 21 MG/24 HOURS TOPICAL PATCH TD SCH (10:05)
[2020-04-29] MEDS: METHOCARBAMOL 500 MG TABLET PO PRN ×2 (10:06→22:06)
[2020-04-29] MEDS: IBUPROFEN 600 MG TABLET (FP) PO PRN ×2 (10:06→22:06)
[2020-04-29] MEDS: ACETAMINOPHEN 325 MG TABLET (FP) PO PRN (19:30)
[2020-04-29] MEDS: QUEtiapine FUMARATE 400 MG TABLET PO SCH (22:03)
[2020-04-29] MEDS: AMITRIPTYLINE 100 MG PO SCH (22:03)
[2020-04-29] MEDS: THIAMINE HCL 100 MG TABLET (FP) PO SCH (22:03)
[2020-04-29] MEDS: INSULIN (LEVEMIR) 100 UNITS/ML UNITS SQ SCH (22:03)
[2020-04-29] MEDS: traZODone HCL 100 MG TABLET (FP) PO SCH (22:03)
[2020-04-30] MEDS ORDERED: chlordiazePOXIDE HCL 10 MG CAPSULE PO ONE (05:00)
[2020-04-30] MEDS: metFORMIN HCL 500 MG TABLET (FP) PO SCH (08:03)
[2020-04-30] MEDS: LISINOPRIL 20 MG TABLET PO SCH (10:05)
[2020-04-30] MEDS: IBUPROFEN 600 MG TABLET (FP) PO PRN (10:07)
[2020-04-30] MEDS: CHLORHEXIDINE GLUCONATE 0.12% 15ML CUP MM SCH (10:10)
[2020-04-30] MEDS: LIPASE/PROTEASE/AMYLASE 6,000 UNIT CAPSULE PO SCH ×2 (10:10→13:17)
[2020-04-30] MEDS: NICOTINE 21 MG/24 HOURS TOPICAL PATCH TD SCH (10:10)
[2020-04-30] MEDS: PRENATAL VITAMINS W/ FOLIC ACID TABLET (FP) PO SCH (10:11)
[2020-04-30 13:25] VITALS: BP 136/93; PULSE 99; TEMP 97.5
== END 2020-04-30 13:26 | disposition home or self-care (01) | DRG 775 ==
LOC: YASAS 11:05 → Y6N 12:44
PROVIDERS: ADMIT Allergy & Immunology; ATTEND Allergy & Immunology
PROC: HZ2ZZZZ Detoxification Services for Substance Abuse Treatment (ICD-10-PCS; principal; 2020-04-25)
DX: F10.230 Alcohol dependence with withdrawal, uncomplicated (principal); F12.20 Cannabis dependence, uncomplicated; F17.213 Nicotine dependence, cigarettes, with withdrawal; F19.282 Other psychoactive substance dependence with psychoactive substance-induced sleep disorder; F19.280 Other psychoactive substance dependence with psychoactive substance-induced anxiety disorder; F19.24 Other psychoactive substance dependence with psychoactive substance-induced mood disorder; F31.9 Bipolar disorder, unspecified; F43.10 Post-traumatic stress disorder, unspecified; E10.9 Type 1 diabetes mellitus without complications; E78.00 Pure hypercholesterolemia, unspecified; I10 Essential (primary) hypertension; J45.20 Mild intermittent asthma, uncomplicated; K21.9 Gastro-esophageal reflux disease without esophagitis; K86.81 Exocrine pancreatic insufficiency; K04.7 Periapical abscess without sinus; R74.01 Elevation of levels of liver transaminase levels; E66.9 Obesity, unspecified; Z68.33 Body mass index [BMI] 33.0-33.9, adult; Z79.4 Long term (current) use of insulin; Z91.410 Personal history of adult physical and sexual abuse
CPT/HCPCS: 36415; 80053; 82962; 85027; 86780; C9803; U0003

== ENCOUNTER 2020-07-15 10:25 | Inpatient (IN) | payer BC ==
[2020-07-15 11:30] VITALS: BMI 35.9
[2020-07-15] MEDS ORDERED: METHOCARBAMOL 500 MG TABLET PO PRN (13:46)
[2020-07-15] MEDS ORDERED: ACETAMINOPHEN 325 MG TABLET (FP) PO PRN ×2 (13:46)
[2020-07-15] MEDS ORDERED: IBUPROFEN 400 MG TABLET (FP) PO PRN (13:46)
[2020-07-15] MEDS ORDERED: MAG HYDROX/AL HYDROX/SIMETH 30 ML UNIT-DOSE CUP PO PRN (13:46)
[2020-07-15] MEDS ORDERED: MAGNESIUM HYDROX 2400MG/30ML ORAL SUSPENSION 30 ML CUP PO PRN (13:46)
[2020-07-15] MEDS ORDERED: MAGNESIUM CITRATE 300 ML BOTTLE PO PRN (13:46)
[2020-07-15] MEDS ORDERED: MENTHOL/PHENOL 1 EACH UD MM PRN (13:46)
[2020-07-15] MEDS ORDERED: NICOTINE POLACRILEX 2 MG GUM BUC PRN (13:46)
[2020-07-15] MEDS ORDERED: chlordiazePOXIDE HCL 25 MG CAPSULE PO PRN (13:46)
[2020-07-15] MEDS ORDERED: ONDANSETRON *ODT* 4 MG TABLET SL PRN (13:46)
[2020-07-15] MEDS ORDERED: BISMUTH SUBSALICYLATE 524 MG/30 ML UD PO PRN (13:46)
[2020-07-15] MEDS ORDERED: ALBUTEROL SO4 HFA INHALER IH PRN (13:49)
[2020-07-15] MEDS: hydrOXYzine PAMOATE 25 MG CAPSULE (FP) PO SCH ×3 (14:14→22:21)
[2020-07-15] MEDS: PRENATAL VITAMINS W/ FOLIC ACID TABLET (FP) PO SCH (14:14)
[2020-07-15 17:12] LABS: HEMATOCRIT 39.9 % (35.4-49); HEMOGLOBIN 13.6 GM/dL (11.7-16.9); MCH 28.7 pg (25.7-33.7); MCHC 34.1 g/dl (32.0-35.9); MEAN CELL VOLUME 84.3 fl (80-96); MEAN PLT VOLUME 8.5 fl (7.5-11.1); PLATELET COUNT 252 K/MM3 (134-434); RBC 4.73 M/mm3 (4.00-5.60); RDW 15.1 % (11.9-15.9); WHITE BLOOD COUNT 8.5 K/mm3 (4.0-10.0)
[2020-07-15 17:14] LABS: ALBUMIN 4.4 g/dl (3.4-5.0); CALCIUM 9.4 mg/dL (8.5-10.1)
[2020-07-15 17:15] LABS: BLOOD UREA NITROGEN 20.3 mg/dL (7-18)
[2020-07-15 17:18] LABS: CREATININE 1.5 mg/dL (0.55-1.3)
[2020-07-15 17:19] LABS: BILIRUBIN,TOTAL 0.2 mg/dL (0.2-1); TOT PROT 8.6 g/dl (6.4-8.2)
[2020-07-15] MEDS: chlordiazePOXIDE HCL 25 MG CAPSULE PO SCH ×2 (18:02→22:21)
[2020-07-15] MEDS ORDERED: THIAMINE HCL 100 MG TABLET (FP) PO SCH (22:00)
[2020-07-15] MEDS ORDERED: QUEtiapine FUMARATE 400 MG TABLET PO SCH (22:00)
[2020-07-15] MEDS ORDERED: QUEtiapine FUMARATE 25 MG TABLET PO SCH (22:00)
[2020-07-15] MEDS ORDERED: MELATONIN 5 MG TABLETS PO SCH (22:00)
[2020-07-15] MEDS ORDERED: AMITRIPTYLINE HCL 50 MG TABLET PO SCH (22:00)
[2020-07-15] MEDS ORDERED: RAMELTEON 8 MG TABLET PO SCH (22:00)
[2020-07-16] MEDS: hydrOXYzine PAMOATE 25 MG CAPSULE (FP) PO SCH ×3 (05:41→14:49)
[2020-07-16] MEDS: chlordiazePOXIDE HCL 25 MG CAPSULE PO SCH ×2 (05:41→10:07)
[2020-07-16] MEDS: PRENATAL VITAMINS W/ FOLIC ACID TABLET (FP) PO SCH (10:07)
[2020-07-16 14:13] VITALS: BP 144/83; PULSE 96; TEMP 97.8
[2020-07-16] MEDS ORDERED: QUEtiapine FUMARATE 400 MG TABLET PO SCH (22:00)
[2020-07-16] MEDS ORDERED: AMITRIPTYLINE HCL 25 MG TABLET PO SCH (22:00)
[2020-07-17] MEDS ORDERED: chlordiazePOXIDE HCL 25 MG CAPSULE PO SCH (05:00)
[2020-07-18] MEDS ORDERED: chlordiazePOXIDE HCL 10 MG CAPSULE PO PRN
[2020-07-18] MEDS ORDERED: chlordiazePOXIDE HCL 10 MG CAPSULE PO SCH (05:00)
[2020-07-19] MEDS ORDERED: chlordiazePOXIDE HCL 10 MG CAPSULE PO SCH (05:00)
[2020-07-20] MEDS ORDERED: chlordiazePOXIDE HCL 10 MG CAPSULE PO ONE (05:00)
== END 2020-07-16 15:56 | disposition left against medical advice (07) | DRG 770 ==
LOC: YASAS 10:25 → Y6N 12:43
PROVIDERS: ADMIT Allergy & Immunology; ATTEND Allergy & Immunology
PROC: HZ2ZZZZ Detoxification Services for Substance Abuse Treatment (ICD-10-PCS; principal; 2020-07-15)
DX: F10.230 Alcohol dependence with withdrawal, uncomplicated (principal); F12.20 Cannabis dependence, uncomplicated; F17.210 Nicotine dependence, cigarettes, uncomplicated; F19.282 Other psychoactive substance dependence with psychoactive substance-induced sleep disorder; F19.24 Other psychoactive substance dependence with psychoactive substance-induced mood disorder; F31.9 Bipolar disorder, unspecified; F41.8 Other specified anxiety disorders; F43.10 Post-traumatic stress disorder, unspecified; E78.00 Pure hypercholesterolemia, unspecified; E11.9 Type 2 diabetes mellitus without complications; I10 Essential (primary) hypertension; J45.20 Mild intermittent asthma, uncomplicated; K21.9 Gastro-esophageal reflux disease without esophagitis; K86.81 Exocrine pancreatic insufficiency; Z79.84 Long term (current) use of oral hypoglycemic drugs; Z56.0 Unemployment, unspecified; Z91.013 Allergy to seafood; Z91.018 Allergy to other foods
CPT/HCPCS: 36415; 80053; 82962; 85027; 86780; C9803; U0003; U0005

== ENCOUNTER 2021-08-21 11:10 | Inpatient (IN) | payer BC ==
[2021-08-21] MEDS ORDERED: BISMUTH SUBSALICYLATE 262 MG/15 ML BTL PO PRN (11:43)
[2021-08-21] MEDS ORDERED: LOPERAMIDE HCL 2 MG CAPSULE PO PRN (11:43)
[2021-08-21] MEDS ORDERED: MAGNESIUM CITRATE 300 ML BOTTLE PO PRN (11:43)
[2021-08-21] MEDS ORDERED: methaDONE HCL 10 MG TABLET (FOR DETOX USE ONLY) PO ONE (11:43)
[2021-08-21] MEDS ORDERED: BENZOCAINE/MENTHOL (CHLORASEPTIC ) LOZENGE MM PRN (11:43)
[2021-08-21] MEDS ORDERED: MAGNESIUM HYDROX 2400MG/30ML ORAL SUSPENSION 30 ML CUP PO PRN (11:43)
[2021-08-21] MEDS ORDERED: ONDANSETRON *ODT* 4 MG TABLET SL PRN (11:43)
[2021-08-21] MEDS ORDERED: DICYCLOMINE HCL 10 MG CAPSULE PO PRN (11:43)
[2021-08-21] MEDS ORDERED: MAG HYDROX/AL HYDROX/SIMETH 30 ML UNIT-DOSE CUP PO PRN (11:43)
[2021-08-21] MEDS ORDERED: ACETAMINOPHEN 325 MG TABLET (FP) PO PRN (11:43)
[2021-08-21] MEDS ORDERED: NICOTINE 10 MG CARTRIDGE (INHALER) IH PRN (11:43)
[2021-08-21] MEDS ORDERED: chlordiazePOXIDE HCL 25 MG CAPSULE PO PRN (11:43)
[2021-08-21 12:09] VITALS: BMI 31.2
[2021-08-21] MEDS: PRENATAL VITAMINS W/ FOLIC ACID TABLET (FP) PO SCH (13:22)
[2021-08-21] MEDS: NICOTINE 7 MG/24 HOURS TOPICAL PATCH TD SCH (13:22)
[2021-08-21] MEDS: hydrOXYzine PAMOATE 25 MG CAPSULE (FP) PO SCH ×3 (13:32→23:05)
[2021-08-21] MEDS: IBUPROFEN 400 MG TABLET (FP) PO PRN (13:34)
[2021-08-21] MEDS: METHOCARBAMOL 500 MG TABLET PO PRN (13:35)
[2021-08-21 14:03] LABS: ALBUMIN 3.2 g/dl (3.4-5.0); BLOOD UREA NITROGEN 12.1 mg/dL (7-18); HEMOGLOBIN 12.3 GM/dL (11.7-16.9); MCH 31.5 pg (25.7-33.7); MCHC 33.2 g/dl (32.0-35.9); MEAN CELL VOLUME 94.9 fl (80-96); MEAN PLT VOLUME 7.9 fl (7.5-11.1); PLATELET COUNT 261 10^3/uL (134-434); RDW 14.8 % (11.9-15.9); WHITE BLOOD COUNT 12.4 K/mm3 (4.0-10.0)
[2021-08-21 14:07] LABS: BILIRUBIN,TOTAL 1.1 mg/dL (0.2-1); TOT PROT 7.6 g/dl (6.4-8.2)
[2021-08-21 14:09] LABS: CREATININE 1.7 mg/dL (0.55-1.3)
[2021-08-21] MEDS: cloNIDine HCL 0.1 MG TABLET PO PRN (14:40)
[2021-08-21] MEDS ORDERED: ALBUTEROL SO4 HFA INHALER IH PRN (15:31)
[2021-08-21] MEDS: metFORMIN HCL 500 MG TABLET (FP) PO SCH (15:43)
[2021-08-21] MEDS: ACETAMINOPHEN 325 MG TABLET (FP) PO PRN (17:25)
[2021-08-21] MEDS: chlordiazePOXIDE HCL 25 MG CAPSULE PO SCH ×2 (18:22→22:09)
[2021-08-21] MEDS ORDERED: QUEtiapine FUMARATE 400 MG TABLET PO SCH (22:00)
[2021-08-21] MEDS: THIAMINE HCL 100 MG TABLET (FP) PO SCH (22:12)
[2021-08-21] MEDS: MELATONIN 5 MG TABLETS PO SCH (22:12)
[2021-08-21] MEDS: QUEtiapine FUMARATE 200 MG TABLET PO SCH ×2 (22:17→23:00)
[2021-08-22] MEDS: hydrOXYzine PAMOATE 25 MG CAPSULE (FP) PO SCH ×5 (05:58→22:17)
[2021-08-22] MEDS: chlordiazePOXIDE HCL 25 MG CAPSULE PO SCH ×4 (05:59→22:18)
[2021-08-22] MEDS: metFORMIN HCL 500 MG TABLET (FP) PO SCH (06:00)
[2021-08-22] MEDS ORDERED: methaDONE HCL 10 MG TABLET (FOR DETOX USE ONLY) ONE (09:26)
[2021-08-22] MEDS: NICOTINE 7 MG/24 HOURS TOPICAL PATCH TD SCH (11:16)
[2021-08-22] MEDS: PRENATAL VITAMINS W/ FOLIC ACID TABLET (FP) PO SCH (11:17)
[2021-08-22] MEDS: THIAMINE HCL 100 MG TABLET (FP) PO SCH (22:17)
[2021-08-22] MEDS: MELATONIN 5 MG TABLETS PO SCH (22:17)
[2021-08-22] MEDS: AMITRIPTYLINE HCL 25 MG TABLET PO SCH (22:17)
[2021-08-22] MEDS: QUEtiapine FUMARATE 200 MG TABLET PO SCH (22:18)
[2021-08-23] MEDS: chlordiazePOXIDE HCL 25 MG CAPSULE PO SCH ×2 (07:52→10:12)
[2021-08-23] MEDS: metFORMIN HCL 500 MG TABLET (FP) PO SCH (07:52)
[2021-08-23] MEDS: hydrOXYzine PAMOATE 25 MG CAPSULE (FP) PO SCH ×5 (07:52→22:20)
[2021-08-23] MEDS ORDERED: methaDONE HCL 10 MG TABLET (FOR DETOX USE ONLY) PO ONE (10:00)
[2021-08-23] MEDS: METHOCARBAMOL 500 MG TABLET PO PRN (10:12)
[2021-08-23] MEDS: PRENATAL VITAMINS W/ FOLIC ACID TABLET (FP) PO SCH (10:13)
[2021-08-23] MEDS: NICOTINE 7 MG/24 HOURS TOPICAL PATCH TD SCH (10:14)
[2021-08-23] MEDS: ACETAMINOPHEN 325 MG TABLET (FP) PO PRN (10:16)
[2021-08-23] MEDS ORDERED: POTASSIUM CHLORIDE ORAL LIQUID 20 MEQ/15 ML PO ONE ×2 (13:00→18:00)
[2021-08-23] MEDS ORDERED: chlordiazePOXIDE HCL 25 MG CAPSULE PO SCH (17:00)
[2021-08-23] MEDS ORDERED: chlordiazePOXIDE HCL 10 MG CAPSULE PO SCH (17:19)
[2021-08-23] MEDS: chlordiazePOXIDE HCL 10 MG CAPSULE PO SCH ×2 (17:30→22:20)
[2021-08-23] MEDS: cloNIDine HCL 0.1 MG TABLET PO PRN (17:31)
[2021-08-23] MEDS: INSULIN SLIDING SCALE (NOVOLOG) 1 VIAL SQ SCH ×2 (17:35→22:24)
[2021-08-23] MEDS: THIAMINE HCL 100 MG TABLET (FP) PO SCH (22:19)
[2021-08-23] MEDS: QUEtiapine FUMARATE 200 MG TABLET PO SCH (22:20)
[2021-08-23] MEDS: AMITRIPTYLINE HCL 25 MG TABLET PO SCH (22:20)
[2021-08-23] MEDS: MELATONIN 5 MG TABLETS PO SCH (22:23)
[2021-08-24] MEDS ORDERED: chlordiazePOXIDE HCL 10 MG CAPSULE PO PRN
[2021-08-24] MEDS: metFORMIN HCL 500 MG TABLET (FP) PO SCH (06:49)
[2021-08-24] MEDS: hydrOXYzine PAMOATE 25 MG CAPSULE (FP) PO SCH ×5 (06:49→22:41)
[2021-08-24] MEDS: chlordiazePOXIDE HCL 10 MG CAPSULE PO SCH ×4 (06:50→22:42)
[2021-08-24] MEDS: INSULIN SLIDING SCALE (NOVOLOG) 1 VIAL SQ SCH ×4 (06:52→22:49)
[2021-08-24] MEDS ORDERED: methaDONE HCL 10 MG TABLET (FOR DETOX USE ONLY) ONE (09:13)
[2021-08-24 10:32] LABS: HEMATOCRIT 32.5 % (35.4-49); HEMOGLOBIN 11.1 GM/dL (11.7-16.9); MCH 31.8 pg (25.7-33.7); MEAN CELL VOLUME 93.4 fl (80-96); MEAN PLT VOLUME 7.8 fl (7.5-11.1); PLATELET COUNT 249 10^3/uL (134-434); RBC 3.48 M/mm3 (4.00-5.60); RDW 14.8 % (11.9-15.9); WHITE BLOOD COUNT 10.1 K/mm3 (4.0-10.0)
[2021-08-24 11:12] LABS: CREATININE 1.4 mg/dL (0.55-1.3)
[2021-08-24] MEDS: PRENATAL VITAMINS W/ FOLIC ACID TABLET (FP) PO SCH (11:17)
[2021-08-24] MEDS: NICOTINE 7 MG/24 HOURS TOPICAL PATCH TD SCH (11:17)
[2021-08-24] MEDS: METHOCARBAMOL 500 MG TABLET PO PRN (15:21)
[2021-08-24] MEDS: MELATONIN 5 MG TABLETS PO SCH (22:41)
[2021-08-24] MEDS: AMITRIPTYLINE HCL 25 MG TABLET PO SCH (22:41)
[2021-08-24] MEDS: THIAMINE HCL 100 MG TABLET (FP) PO SCH (22:41)
[2021-08-24] MEDS: QUEtiapine FUMARATE 200 MG TABLET PO SCH (22:41)
[2021-08-25] MEDS: metFORMIN HCL 500 MG TABLET (FP) PO SCH ×2 (06:26→18:07)
[2021-08-25] MEDS: hydrOXYzine PAMOATE 25 MG CAPSULE (FP) PO SCH ×5 (06:26→22:27)
[2021-08-25] MEDS: chlordiazePOXIDE HCL 10 MG CAPSULE PO SCH ×2 (06:26→18:08)
[2021-08-25] MEDS: INSULIN SLIDING SCALE (NOVOLOG) 1 VIAL SQ SCH ×4 (06:32→22:33)
[2021-08-25] MEDS ORDERED: methaDONE HCL 10 MG TABLET (FOR DETOX USE ONLY) PO ONE (10:00)
[2021-08-25] MEDS: METHOCARBAMOL 500 MG TABLET PO PRN (12:32)
[2021-08-25] MEDS: NICOTINE 7 MG/24 HOURS TOPICAL PATCH TD SCH (12:33)
[2021-08-25] MEDS: PRENATAL VITAMINS W/ FOLIC ACID TABLET (FP) PO SCH (12:33)
[2021-08-25] MEDS: IBUPROFEN 400 MG TABLET (FP) PO PRN (13:19)
[2021-08-25] MEDS ORDERED: IBUPROFEN 600 MG TABLET (FP) PO PRN (15:51)
[2021-08-25] MEDS ORDERED: POTASSIUM CHLORIDE ORAL LIQUID 20 MEQ/15 ML PO ONE ×3 (16:00→20:00)
[2021-08-25] MEDS: ACETAMINOPHEN 325 MG TABLET (FP) PO PRN (18:19)
[2021-08-25] MEDS: THIAMINE HCL 100 MG TABLET (FP) PO SCH (22:27)
[2021-08-25] MEDS: MELATONIN 5 MG TABLETS PO SCH (22:27)
[2021-08-25] MEDS: QUEtiapine FUMARATE 200 MG TABLET PO SCH (22:27)
[2021-08-25] MEDS: AMITRIPTYLINE HCL 25 MG TABLET PO SCH (22:27)
[2021-08-26] MEDS ORDERED: chlordiazePOXIDE HCL 10 MG CAPSULE PO ONE (05:00)
[2021-08-26] MEDS: metFORMIN HCL 500 MG TABLET (FP) PO SCH (08:01)
[2021-08-26] MEDS: INSULIN SLIDING SCALE (NOVOLOG) 1 VIAL SQ SCH (08:02)
[2021-08-26] MEDS: hydrOXYzine PAMOATE 25 MG CAPSULE (FP) PO SCH ×2 (08:05→10:23)
[2021-08-26 09:20] VITALS: BP 114/68; PULSE 98; TEMP 97.8
[2021-08-26] MEDS: METHOCARBAMOL 500 MG TABLET PO PRN (10:23)
[2021-08-26] MEDS: PRENATAL VITAMINS W/ FOLIC ACID TABLET (FP) PO SCH (10:23)
[2021-08-26] MEDS: NICOTINE 7 MG/24 HOURS TOPICAL PATCH TD SCH (10:23)
== END 2021-08-26 11:35 | disposition other institution (70) | DRG 773 ==
LOC: YASAS 11:10 → Y6N 11:52
PROVIDERS: ADMIT Allergy & Immunology; ATTEND Nurse Practitioner Family
PROC: HZ2ZZZZ Detoxification Services for Substance Abuse Treatment (ICD-10-PCS; principal; 2021-08-21)
DX: F11.23 Opioid dependence with withdrawal (principal); F10.230 Alcohol dependence with withdrawal, uncomplicated; F14.20 Cocaine dependence, uncomplicated; F16.20 Hallucinogen dependence, uncomplicated; F12.20 Cannabis dependence, uncomplicated; F17.210 Nicotine dependence, cigarettes, uncomplicated; F19.282 Other psychoactive substance dependence with psychoactive substance-induced sleep disorder; F19.24 Other psychoactive substance dependence with psychoactive substance-induced mood disorder; F31.9 Bipolar disorder, unspecified; F41.8 Other specified anxiety disorders; F32.A Depression, unspecified; F43.10 Post-traumatic stress disorder, unspecified; E11.9 Type 2 diabetes mellitus without complications; R79.89 Other specified abnormal findings of blood chemistry; R10.32 Left lower quadrant pain; E66.9 Obesity, unspecified; Z68.31 Body mass index [BMI] 31.0-31.9, adult; Z79.84 Long term (current) use of oral hypoglycemic drugs; Z86.69 Personal history of other diseases of the nervous system and sense organs; Z91.018 Allergy to other foods; Z59.00 Homelessness unspecified; Z56.0 Unemployment, unspecified; Z91.013 Allergy to seafood
CPT/HCPCS: 36415; 80053; 82150; 82565; 82962; 83036; 83690; 84132; 84443; 85027; 86780; 87811; 93005; 93010; C9803-CS; J0735; U0003; U0005

== ENCOUNTER 2021-08-26 11:18 | Inpatient (IN) | payer BC ==
[2021-08-26] MEDS ORDERED: MAGNESIUM HYDROX 2400MG/30ML ORAL SUSPENSION 30 ML CUP PO PRN (12:52)
[2021-08-26] MEDS ORDERED: guaiFENesin 200 MG/10 ML 10 ML UNIT-DOSE CUPS PO PRN (12:52)
[2021-08-26] MEDS ORDERED: P-EPHED 60MG/TRIPROLIDI 2.5MG TABLET PO PRN (12:52)
[2021-08-26] MEDS ORDERED: IBUPROFEN 400 MG TABLET (FP) PO PRN (12:52)
[2021-08-26] MEDS ORDERED: BENZOCAINE/MENTHOL (CHLORASEPTIC ) LOZENGE MM PRN (12:52)
[2021-08-26] MEDS ORDERED: LOPERAMIDE HCL 2 MG CAPSULE PO PRN (12:52)
[2021-08-26] MEDS ORDERED: ACETAMINOPHEN 325 MG TABLET (FP) PO PRN (12:52)
[2021-08-26] MEDS ORDERED: NICOTINE 10 MG CARTRIDGE (INHALER) IH PRN (12:52)
[2021-08-26] MEDS ORDERED: MAG HYDROX/AL HYDROX/SIMETH 30 ML UNIT-DOSE CUP PO PRN (12:52)
[2021-08-26] MEDS ORDERED: MAGNESIUM CITRATE 300 ML BOTTLE PO PRN (12:52)
[2021-08-26] MEDS ORDERED: NICOTINE POLACRILEX 2 MG GUM BUC PRN (12:56)
[2021-08-26] MEDS ORDERED: hydrOXYzine PAMOATE 25 MG CAPSULE (FP) PO PRN (13:23)
[2021-08-26] MEDS ORDERED: hydrOXYzine PAMOATE 25 MG CAPSULE (FP) PO SCH (14:00)
[2021-08-26] MEDS: METHOCARBAMOL 500 MG TABLET PO SCH ×3 (14:53→21:10)
[2021-08-26] MEDS: metFORMIN HCL 500 MG TABLET (FP) PO SCH (16:22)
[2021-08-26] MEDS: INSULIN SLIDING SCALE (NOVOLOG) 1 VIAL SQ SCH ×2 (16:24→21:13)
[2021-08-26] MEDS: MELATONIN 5 MG TABLETS PO SCH (21:10)
[2021-08-26] MEDS: THIAMINE HCL 100 MG TABLET (FP) PO SCH (21:10)
[2021-08-26] MEDS: QUEtiapine FUMARATE 200 MG TABLET PO SCH (21:12)
[2021-08-26] MEDS: AMITRIPTYLINE HCL 25 MG TABLET PO SCH (21:22)
[2021-08-27] MEDS: INSULIN SLIDING SCALE (NOVOLOG) 1 VIAL SQ SCH ×4 (06:24→21:17)
[2021-08-27] MEDS: metFORMIN HCL 500 MG TABLET (FP) PO SCH ×2 (07:08→17:17)
[2021-08-27] MEDS ORDERED: NICOTINE 14 MG/24 HOURS TOPICAL PATCH TD SCH (10:00)
[2021-08-27] MEDS: NICOTINE 10 MG CARTRIDGE (INHALER) IH SCH (12:07)
[2021-08-27] MEDS: NICOTINE 7 MG/24 HOURS TOPICAL PATCH TD SCH (12:07)
[2021-08-27] MEDS: PRENATAL VITAMINS W/ FOLIC ACID TABLET (FP) PO SCH (12:08)
[2021-08-27] MEDS: METHOCARBAMOL 500 MG TABLET PO SCH ×4 (12:08→21:17)
[2021-08-27] MEDS: QUEtiapine FUMARATE 200 MG TABLET PO SCH (21:16)
[2021-08-27] MEDS: MELATONIN 5 MG TABLETS PO SCH (21:16)
[2021-08-27] MEDS: THIAMINE HCL 100 MG TABLET (FP) PO SCH (21:17)
[2021-08-27] MEDS: AMITRIPTYLINE HCL 25 MG TABLET PO SCH (21:17)
[2021-08-28] MEDS: metFORMIN HCL 500 MG TABLET (FP) PO SCH ×2 (06:54→17:38)
[2021-08-28] MEDS: INSULIN SLIDING SCALE (NOVOLOG) 1 VIAL SQ SCH ×4 (06:55→21:48)
[2021-08-28] MEDS: PRENATAL VITAMINS W/ FOLIC ACID TABLET (FP) PO SCH (10:30)
[2021-08-28] MEDS: NICOTINE 7 MG/24 HOURS TOPICAL PATCH TD SCH (10:30)
[2021-08-28] MEDS: METHOCARBAMOL 500 MG TABLET PO SCH ×4 (10:30→21:19)
[2021-08-28] MEDS: NICOTINE 10 MG CARTRIDGE (INHALER) IH SCH (10:30)
[2021-08-28] MEDS: AMITRIPTYLINE HCL 25 MG TABLET PO SCH (21:19)
[2021-08-28] MEDS: MELATONIN 5 MG TABLETS PO SCH (21:19)
[2021-08-28] MEDS: THIAMINE HCL 100 MG TABLET (FP) PO SCH (21:19)
[2021-08-28] MEDS: QUEtiapine FUMARATE 200 MG TABLET PO SCH (21:19)
[2021-08-29] MEDS: metFORMIN HCL 500 MG TABLET (FP) PO SCH ×2 (08:07→17:06)
[2021-08-29] MEDS: INSULIN SLIDING SCALE (NOVOLOG) 1 VIAL SQ SCH ×3 (08:07→17:07)
[2021-08-29] MEDS: NICOTINE 10 MG CARTRIDGE (INHALER) IH SCH (09:47)
[2021-08-29] MEDS: NICOTINE 7 MG/24 HOURS TOPICAL PATCH TD SCH (09:47)
[2021-08-29] MEDS: PRENATAL VITAMINS W/ FOLIC ACID TABLET (FP) PO SCH (09:47)
[2021-08-29] MEDS: METHOCARBAMOL 500 MG TABLET PO SCH ×4 (09:48→21:02)
[2021-08-29] MEDS: AMITRIPTYLINE HCL 25 MG TABLET PO SCH (21:01)
[2021-08-29] MEDS: THIAMINE HCL 100 MG TABLET (FP) PO SCH (21:01)
[2021-08-29] MEDS: MELATONIN 5 MG TABLETS PO SCH (21:01)
[2021-08-29] MEDS: QUEtiapine FUMARATE 200 MG TABLET PO SCH (21:01)
[2021-08-30] MEDS: metFORMIN HCL 500 MG TABLET (FP) PO SCH ×2 (07:46→16:38)
[2021-08-30] MEDS: INSULIN SLIDING SCALE (NOVOLOG) 1 VIAL SQ SCH ×2 (07:46→16:38)
[2021-08-30] MEDS: NICOTINE 7 MG/24 HOURS TOPICAL PATCH TD SCH (09:29)
[2021-08-30] MEDS: PRENATAL VITAMINS W/ FOLIC ACID TABLET (FP) PO SCH (09:29)
[2021-08-30] MEDS: METHOCARBAMOL 500 MG TABLET PO SCH ×4 (09:29→21:21)
[2021-08-30] MEDS: MELATONIN 5 MG TABLETS PO SCH (21:21)
[2021-08-30] MEDS: QUEtiapine FUMARATE 200 MG TABLET PO SCH (21:21)
[2021-08-30] MEDS: AMITRIPTYLINE HCL 25 MG TABLET PO SCH (21:21)
[2021-08-30] MEDS: THIAMINE HCL 100 MG TABLET (FP) PO SCH (21:21)
[2021-08-31] MEDS: metFORMIN HCL 500 MG TABLET (FP) PO SCH ×2 (06:33→16:34)
[2021-08-31] MEDS: INSULIN SLIDING SCALE (NOVOLOG) 1 VIAL SQ SCH ×2 (06:33→16:35)
[2021-08-31] MEDS: METHOCARBAMOL 500 MG TABLET PO SCH ×2 (10:07→13:51)
[2021-08-31] MEDS: NICOTINE 7 MG/24 HOURS TOPICAL PATCH TD SCH (10:07)
[2021-08-31] MEDS: PRENATAL VITAMINS W/ FOLIC ACID TABLET (FP) PO SCH (10:07)
[2021-08-31] MEDS: THIAMINE HCL 100 MG TABLET (FP) PO SCH (21:15)
[2021-08-31] MEDS: AMITRIPTYLINE HCL 25 MG TABLET PO SCH (21:15)
[2021-08-31] MEDS: QUEtiapine FUMARATE 200 MG TABLET PO SCH (21:15)
[2021-08-31] MEDS: MELATONIN 5 MG TABLETS PO SCH (21:18)
[2021-09-01] MEDS: metFORMIN HCL 500 MG TABLET (FP) PO SCH ×2 (06:53→16:32)
[2021-09-01] MEDS: INSULIN SLIDING SCALE (NOVOLOG) 1 VIAL SQ SCH ×2 (06:53→16:32)
[2021-09-01] MEDS: PRENATAL VITAMINS W/ FOLIC ACID TABLET (FP) PO SCH (10:16)
[2021-09-01] MEDS: METHOCARBAMOL 500 MG TABLET PO PRN (10:16)
[2021-09-01] MEDS: NICOTINE 7 MG/24 HOURS TOPICAL PATCH TD SCH (10:17)
[2021-09-01] MEDS: QUEtiapine FUMARATE 200 MG TABLET PO SCH (21:00)
[2021-09-01] MEDS: AMITRIPTYLINE HCL 25 MG TABLET PO SCH (21:00)
[2021-09-01] MEDS: THIAMINE HCL 100 MG TABLET (FP) PO SCH (21:00)
[2021-09-01] MEDS: MELATONIN 5 MG TABLETS PO SCH (21:00)
[2021-09-02] MEDS: metFORMIN HCL 500 MG TABLET (FP) PO SCH ×2 (06:47→16:42)
[2021-09-02] MEDS: INSULIN SLIDING SCALE (NOVOLOG) 1 VIAL SQ SCH ×2 (06:47→16:43)
[2021-09-02] MEDS: PRENATAL VITAMINS W/ FOLIC ACID TABLET (FP) PO SCH (10:10)
[2021-09-02] MEDS: NICOTINE 7 MG/24 HOURS TOPICAL PATCH TD SCH (10:10)
[2021-09-02] MEDS: MELATONIN 5 MG TABLETS PO SCH (21:31)
[2021-09-02] MEDS: THIAMINE HCL 100 MG TABLET (FP) PO SCH (21:31)
[2021-09-02] MEDS: AMITRIPTYLINE HCL 25 MG TABLET PO SCH (21:31)
[2021-09-02] MEDS: QUEtiapine FUMARATE 200 MG TABLET PO SCH (21:32)
[2021-09-02] MEDS: METHOCARBAMOL 500 MG TABLET PO PRN (21:33)
[2021-09-03 06:43] VITALS: BP 116/79; PULSE 78; TEMP 98.4
[2021-09-03] MEDS: metFORMIN HCL 500 MG TABLET (FP) PO SCH ×2 (07:00→17:00)
[2021-09-03] MEDS: INSULIN SLIDING SCALE (NOVOLOG) 1 VIAL SQ SCH ×2 (07:00→17:01)
[2021-09-03] MEDS: PRENATAL VITAMINS W/ FOLIC ACID TABLET (FP) PO SCH (10:23)
[2021-09-03] MEDS: NICOTINE 7 MG/24 HOURS TOPICAL PATCH TD SCH (10:23)
[2021-09-03] MEDS: METHOCARBAMOL 500 MG TABLET PO PRN (21:21)
[2021-09-03] MEDS: MELATONIN 5 MG TABLETS PO SCH (21:21)
[2021-09-03] MEDS: THIAMINE HCL 100 MG TABLET (FP) PO SCH (21:21)
[2021-09-03] MEDS: AMITRIPTYLINE HCL 25 MG TABLET PO SCH (21:22)
[2021-09-03] MEDS: QUEtiapine FUMARATE 200 MG TABLET PO SCH (21:22)
[2021-09-04] MEDS: metFORMIN HCL 500 MG TABLET (FP) PO SCH (07:21)
[2021-09-04] MEDS: INSULIN SLIDING SCALE (NOVOLOG) 1 VIAL SQ SCH (07:21)
== END 2021-09-04 08:55 | disposition home or self-care (01) | DRG 772 ==
LOC: YASAS 11:18 → Y3W 11:20 → Y3E 08-27 15:45
PROVIDERS: ADMIT Allergy & Immunology; ATTEND Psychiatry & Neurology Pain Medicine
PROC: HZ42ZZZ Group Counseling for Substance Abuse Treatment, Cognitive-Behavioral (ICD-10-PCS; principal; 2021-08-26)
DX: F11.20 Opioid dependence, uncomplicated (principal); F10.20 Alcohol dependence, uncomplicated; F12.20 Cannabis dependence, uncomplicated; F17.210 Nicotine dependence, cigarettes, uncomplicated; F31.9 Bipolar disorder, unspecified; J45.909 Unspecified asthma, uncomplicated; R60.0 Localized edema; E11.9 Type 2 diabetes mellitus without complications; Z79.84 Long term (current) use of oral hypoglycemic drugs; E66.9 Obesity, unspecified; Z68.32 Body mass index [BMI] 32.0-32.9, adult
CPT/HCPCS: 82962